=== PATIENT | female | born 1930 | race Caucasian/White ===

== ENCOUNTER 2018-11-23 17:47 | Inpatient (IN) ==
--- OUTSIDE RECORDS SUMMARY | 2018-11-23 17:49 | External Medical Summary | Continuity of Care Document ---
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) Hyperlipidemia (272.4) (E78.5) Hypertensive heart disease (402.90) (I11.9) Pulmonary congestion and hypostasis (514) (J81.1) Carotid artery stenosis (433.10) (I65.29) Chronic kidney disease, stage III (moderate) (585.3) (N18.3) Hypoxia (799.02) (R09.02) Shortness of breath (786.05) (R06.02) Dependence on supplemental oxygen (V46.2) (Z99.81) 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 RINSE MOUTH AFTER USE. ETTA Peralta Start: 27-Oct-2013 Quantity: 1 10.2 GM Inhaler Refills: 0 Furosemide 20 MG Oral Tablet; TAKE 1 TABLET DAILY NEEDED. Start: 24-Dec-2013 Quantity: 30 Refills: 5 Amoxicillin 500 MG Oral Capsule; TAKE 4 CAPSULES 1 HOUR PRIOR TO DENTAL APPOINTMENT. Start: 17-Aug-2015 Refills: 0 Lantus 100 UNIT/ML Subcutaneous Solution; 10 units at HS &10 Units am Refills: 0 Aspirin 81 MG TABS; TAKE 1 TABLET DAILY. Quantity: 30 Refills: 5 ProAir HFA 108 (90 Base) MCG/ACT Inhalat ion Aerosol Solution; INHALE 2 PUFFS EVERY 4 HOURS NEEDED 8.5 GM Inhaler Quantity: 1 Refills: 5 Atorvastatin Calcium 40 MG Oral Tablet; TAKE 1 TABLET DAILY. Refills: 0 amLODIPine Besylate 10 MG Oral Tablet; TAKE 1 TABLET DAILY. Quantity: 30 Refills: 5 Atenolol 50 MG Oral Tablet; TAKE 1 TABLET DAILY DIRECTED. Quantity: 30 Refills: 5 Januvia 25 MG Oral Tablet; TAKE 1 TABLET DAILY. Refills: 0 Glimepiride 4 MG Oral Tablet; TAKE 2 TABLETS DAILY. Refills: 0 OneTouch Ultra Blue STRP; USE 1 STRIP DAILY. Refills: 0 Levothyroxine Sodium 112 MCG Oral Tablet; TAKE 1 TABLET ALICIA Y. Quantity: 30 Refills: 5 Levalbuterol HCl - 0.63 MG/3ML Inhalatio n Nebulization Solution; USE 1 AMPULE IN NEBULIZER EVERY 6 TO 8 HOURS NEEDED ETTA Peralta Start: 019 Quantity: 4 24 x 3 ML Plas Cont Refills: 5 Procedures History of Cholecystectomy Status: Compl eted History of Hip Surgery Status: Completed History of Neuroplasty Decompression Median Nerve At Carpal Status: Completed Tunnel History of Breast Surgery Mastectomy Sta tus: Completed History of Tonsillectomy Status: Complet ed Immunizations Fluzone High-Dose Intramuscular Suspension On: 29-Apr-2014 1 4:09 Lot #: [id number], [employer]UR Fluzone High-Dose Intramuscular Suspension On: 24-Apr-2018 1 6:28 Lot #: [id number], SANOFI PA[employer]UR Family History Mother Family history of Heart Disease (V17.49) Status: Active Father Family history of Heart Disease (V17.49) Status: Active Unknown Family Member Family history of Heart Disease (V17.49) Status: Active Comments: Family History Social History - Smoking Status Former smoker Plan of Treatment Planned Observations Planned Goals not documented Results No Known Results Results not documented Encounters Appointment; Echo/Stress, Echo/Stress 14-May-2018 14:30 Encounter Diagnosis: Problem not documented Appointment; Edwardo Peralta PA-C 24-Apr-2018 15:00 Encounter Diagnosis: Problem not documented Appointment; Edwardo Peratla PA-C 27-Aug-2017 15:00 Encounter Diagnosis: Problem not documented Appointment; Pulmonary, Funct Testing 23-Apr-2017 9:00 Encounter Diagnosis: Problem not documented Appointment; Edwardo Peralta PA-C 25-Dec-2016 15:30 Encounter Diagnosis: Problem not documented
[2018-11-23] MEDS ORDERED: SODIUM CHLORIDE 0.9% 1000ML 1,000 ML IV SCH (18:15)
[2018-11-23] MEDS ORDERED: LEVALBUTEROL 1.25MG/0.5ML NEB NEB STA (18:22)
[2018-11-23 18:35] LABS: Basophils # (auto) 0.01 K/uL (0-0.2); Basophils % (auto) 0.1 %; Hemoglobin 7.2 g/dL (12.0-16.0); Immature Granulocytes # (auto) 0.11 K/uL (0.00-0.02); Immature Granulocytes % (auto) 1.1 %; Lymphocytes % (auto) 6.8 %; Mean Corpuscular Hgb Conc 34.3 g/dL (32-36); Mean Corpuscular Volume 89.7 fL (80-100); Mean Platelet Volume 11.2 fL (7.4-10.4); Monocytes # (auto) 0.49 K/uL (0.11-0.59); Monocytes % (auto) 4.7 %; Neutrophils # (auto) 9.02 K/uL (1.4-6.5); Neutrophils % (auto) 87.3 %; Platelet Count 245 K/uL (130-400); RDW Coefficient of Variation 12.9 % (11.5-14.5); RDW Standard Deviation 42.1 fL (36.4-46.3); Red Blood Count 2.34 M/uL (4.2-5.4); White Blood Count 10.33 K/uL (4.8-10.8)
[2018-11-23 18:58] LABS: RBC Morphology Unremarkable
[2018-11-23 19:10] LABS: Albumin Globulin Ratio 0.8 (0.9-2); Albumin Level 2.4 gm/dl (3.4-5.0); BUN Creatinine Ratio 68.1 (10-20); Bilirubin,Total 0.4 mg/dl (0.2-1); Calcium 7.9 mg/dl (8.5-10.1); Creatinine Clr Calc Pharmacy 27.7 ml/min; Est GFR (African American) 42.5; Est GFR (Non-African American) 36.7; Magnesium 2.3 mg/dl (1.8-2.4); Potassium 4.9 mmol/L (3.5-5.1); Total Protein 5.4 gm/dl (6.4-8.2); Troponin I 0.023 ng/ml (0-0.045)
[2018-11-23] MEDS ORDERED: SODIUM CHLORIDE 0.9% 250 ML IV PRN ×3 (19:25→23:06)
[2018-11-23] MEDS ORDERED: FAMOTIDINE 20MG/5ML IV PUSH IV STA (19:25)
[2018-11-23] MEDS ORDERED: NovoLIN-R INSULIN PER UNIT CHARGE IV STA (19:27)
--- NOTE | 2018-11-23 19:38 | XRay Report ---
XR chest 1V portable HISTORY: weakness COMPARISON: Chest and right rib series 10/15/2018. FINDINGS: The heart remains mildly enlarged. No pneumothorax. Surgical clips within the bilateral axi lla are again noted. No pleural effusions. Mild elevation of the right hemidiaphragm, unchanged. Calc ified plaque within the thoracic aorta. Chronic interstitial thickening persists. No new focal lung c onsolidations. IMPRESSION: No change in the chronic interstitial thickening and mild cardiomegaly. No new focal lung consolidati ons identified. Electronically signed by: Rosendo Ceja M.D. 11/23/2018 7:36 PM
--- NOTE | 2018-11-23 20:06 | Emergency Department Note ---
Entered by Jessica Abdalla acting as a scribe for ED Provider Note CHIEF COMPLAINT: Hyperglycemia HISTORY OF PRESENT ILLNESS: The patient is a 88 year old female who presents to the Emergency Room with complaints of hyperglycemia. Per daughter, the patient's sugar was over 500. The patient states that she has a loss of appetite and dizziness. The patient denies any chest pain, nausea, vomiting, syncope, or leg pain. Per daughter, the patient has bilateral leg swelling at baseline. Per daughter, the patient wears 3.5 L of oxygen at all times and states that the patient does breathing treatments every morning. Per daughter, the patient has a history of breast cancer and received radiation and states that the radiation affected the patient's lungs. Per daughter, the patient is currently taking Amoxicillin and Prednisone. Per daughter, the patient lives at [facility]. Pt denies LOC, headache, fevers, chills, diaphoresis, visual changes, neck pain, chest pain, , nausea, vomiting, abdominal pain, back pain, melena, hematochezia, urinary symptoms, numbness, weakness, lymphadenopathy, rash, or other complaint s. REVIEW OF SYSTEMS: See HPI for pertinent positives and negatives. A total of ten systems were reviewed and were otherwise negative. PMHx/PSHx: Hypothyroidism Diabetes Hyperlipidemia Hypertension Dementia COPD On supplemental oxygen by nasal cannula SOCIAL HISTORY: Patient lives at [facility]. PHYSICAL EXAM: GENERAL: Awake, alert, well-appearing, in no distress HENT: Normocephalic, atraumatic. Oropharynx unremarkable. EYES: PERRL. Pale conjunctiva. Sclera non-icteric. NECK: Inspection normal. Non-tender. Supple. No nuchal rigidity. FROM. No masses. RESPIRATORY: Clear to auscultation. Wheezes bilaterally, rhonci on right side. No rales. Increased respiratory effort. CARDIAC: Normal rate. Normal rhythm. No murmurs. No rubs. Extremities warm and well perfused. Pulses equal. No JVD. GI: Soft, non-distended. No tenderness to palpation. No rebound or guarding. No masses. RECTAL: Deferred. MUSCULOSKELETAL: Atraumatic. Chest examination reveals no tenderness. The back is symmetrical on inspection without obvious abnormality. There is no CVA tenderness to palpation. No joint edema. LOWER EXTREMITIES: Calves are equal size bilaterally and non-tender. +1 left leg edema, slightly worse than right side. No discoloration. NEURO: Normal sensorium. No sensory or motor deficits noted. SKIN: No rash or jaundice noted. EMERGENCY DEPARTMENT COURSE: 1816: Past medical records reviewed. The patient was evaluated in room C7, and a complete history and physical examination were performed. 1943: I checked on the patient and updated her and her family on the patient's results. The patient is stable. 1957: I discussed the patient's case with Dr. Karo Dozier Hospitalist who will evaluate the patient for further hospitalization and admission. 2042: The patient's family consented to the patient receiving a blood transfusion. MEDICAL DECISION MAKING: Triage Nursing notes reviewed and agree them. Additional history obtained from the family. The patient's history was concerning for shortness of breath. Differential diagnosis: Etiologies such as pneumonia, COPD, reactive airway disease, CHF, cardiac ischemia, pulmonary embolism, pneumothorax, musculoskeletal, infections, gastrointestinal, anemia, as well as others were entertained. Physical examination: As above. The patient was mildly pale. ER treatment provided: Xopenex nebulizer treatment Supplemental oxygen On reassessment the patient felt better. IV Pepcid Type and cross 2 units PRBCs Diagnostic interpretation by me: The electrocardiogram was negative for ischemic change. The labs revealed an unremarkable white blood cell count. The patient's hemoglobin was significantly lower than prior. The patient had a black stool while in the ER and this was Hemoccult positive. Imaging studies: Chest x-ray chronic changes noted. No pneumonia. The patient has wheezing and increased work of breathing. She has a significant and further management and work-up in the hospital will be necessary. Consultation: A consultation was placed with the hospitalist. The case was discussed and diagnostics were reviewed. The patient was evaluated in the ER for further treatment. IMPRESSION: Shortness of breath Wheezing Anemia Upper GI bleed PLAN: Admitted CRITICAL CARE: I have personally spent greater than 30 minutes of critical care time in the direct management of this patient. This includes bedside care, interpretation of diagnostic studies, and testing, discussion with consultants, patient, and family members, and other required patient management activities. These minutes are in excess of all separately billable procedures. The scribe's documentation has been prepared under my direction and personally reviewed by me in its entirety. I confirm that the note above accurately reflects all work, treatment, procedures, and medical decision making performed by me. Impression & Plan Shortness of breath, Upper GI bleed, Anemia, Wheezing Past Med/Surg History Social History Preferred Language: Irish Communication Ability: Effective Sweetbread Trimmer Required: No Beliefs That Will Affect Care: None Current Living Situation: Personal Care Facility Current Living Situation Comment: [facility] Other Information That Helps Us Care for You: Yes (Cannot lay flat) Feels Safe at Home: Yes Safety Concerns: Feels Safe At This Time Smoking Status: Former smoker Tobacco Type: cigarettes Do You Dip or Chew Tobacco: No Second Hand Exposure: No Tobacco Cessation Education Requested by Patient: No Hx Alcohol Use: No Hx Substance Use: No Results & Data Vital Signs Vital Signs - 24 hr 11/23/18 17:55 11/23/18 18:04 11/23/18 18:29 Temperature 36.6 C Temperature Source Oral Sepsis Recent Fever Within 48 Hours No Sepsis Action Taken by Nursing No Action Required Pulse Rate 79 Pulse Rate [Right Finger] 74 Pulse Rhythm Respiratory Rate 79 H 16 Respiratory Effort / Characteristics Non-Labored Spontaneous Blood Pressure 118/72 Blood Pressure Mean 87 Blood Pressure Position Sitting Pulse Oximetry 96 100 100 Oxygen Delivery Method Room Air Nasal Cannula Nasal Cannula Oxygen Flow Rate 2 3.5 11/23/18 20:30 11/23/18 20:46 11/23/18 21:01 Temperature Temperature Source Sepsis Recent Fever Within 48 Hours Sepsis Action Taken by Nursing Pulse Rate 75 80 Pulse Rate [Right Finger] 78 Pulse Rhythm Respiratory Rate 29 H 39 H 26 H Respiratory Effort / Characteristics Non-Labored Blood Pressure 131/44 L 138/41 L Blood Pressure Mean 73 73 Blood Pressure Position Pulse Oximetry 98 94 96 Oxygen Delivery Method Nasal Cannula Oxygen Flow Rate 2 11/23/18 21:02 11/23/18 21:16 11/23/18 21:25 Temperature 36.7 C Temperature Source Oral Sepsis Recent Fever Within 48 Hours Sepsis Action Taken by Nursing Pulse Rate 71 73 73 Pulse Rate [Right Finger] Pulse Rhythm Regular Respiratory Rate 37 H 28 H 18 Respiratory Effort / Characteristics Blood Pressure 149/44 H 124/44 L 124/44 L Blood Pressure Mean 79 70 70 Blood Pressure Position Pulse Oximetry 100 98 99 Oxygen Delivery Method Oxygen Flow Rate 2 11/23/18 21:31 11/23/18 21:41 11/23/18 21:46 Temperature 37.2 C Temperature Source Axillary Sepsis Recent Fever Within 48 Hours Sepsis Action Taken by Nursing Pulse Rate 80 76 75 Pulse Rate [Right Finger] Pulse Rhythm Respiratory Rate 28 H 24 34 H Respiratory Effort / Characteristics Blood Pressure 115/47 L 135/49 L 135/49 L Blood Pressure Mean 69 77 77 Blood Pressure Position Lying Pulse Oximetry 97 96 96 Oxygen Delivery Method Oxygen Flow Rate 2 11/23/18 22:01 11/23/18 22:15 Temperature Temperature Source Sepsis Recent Fever Within 48 Hours Sepsis Action Taken by Nursing Pulse Rate 80 74 Pulse Rate [Right Finger] Pulse Rhythm Respiratory Rate 41 H 30 H Respiratory Effort / Characteristics Blood Pressure 129/78 142/54 H Blood Pressure Mean 95 83 Blood Pressure Position Pulse Oximetry 97 96 Oxygen Delivery Method Oxygen Flow Rate Home Medications Current Medication List: was personally reviewed by me Laboratory Data Attestation: I reviewed the patient's lab results. Result diagrams: 11/23/18 18:25 11/23/18 18:25 Lab Results 11/23/18 11/23/18 11/23/18 Range/Units 18:25 18:25 18:29 WBC 10.33 (4.8-10.8) K/uL RBC 2.34 L (4.2-5.4) M/uL Hgb 7.2 L (12.0-16.0) g/dL Hct 21.0 L (37-47) % MCV 89.7 (80-100) fL MCH 30.8 (25-34) pg MCHC 34.3 (32-36) g/dL RDW Std Deviation 42.1 (36.4-46.3) fL RDW Coeff of Van 12.9 (11.5-14.5) % Plt Count 245 (130-400) K/uL MPV 11.2 H (7.4-10.4) fL Immature Gran % (Auto) 1.1 % Neut % (Auto) 87.3 % Lymph % (Auto) 6.8 % [facility] % (Auto) 4.7 % Eos % (Auto) 0.0 % Baso % (Auto) 0.1 % Immature Gran # (Auto) 0.11 H (0.00-0.02) K/uL Neut # (Auto) 9.02 H (1.4-6.5) K/uL Lymph # (Auto) 0.70 L (1.2-3.4) K/uL [facility] # (Auto) 0.49 (0.11-0.59) K/uL Eos # (Auto) 0.00 (0-0.5) K/uL Baso # (Auto) 0.01 (0-0.2) K/uL RBC Morphology Unremarkable Sodium 134 L (136-145) mmol/L Potassium 4.9 (3.5-5.1) mmol/L Chloride 97 L (98-107) mmol/L Carbon Dioxide 31 (21-32) mmol/L Anion Gap 7.0 (3-11) BUN 88 H (7-18) mg/dl Creatinine 1.29 H (0.6-1.2) mg/dl Est Cr Clr Drug Dosing 27.7 ml/min Est GFR ( Amer) 42.5 Est GFR (Non-Af Amer) 36.7 BUN/Creatinine Ratio 68.1 H (10-20) Glucose 400 H* (70-99) mg/dl POC Glucose (70-99) POC Lactic Acid Clint 1.63 (0.90-1.70) mmol/L Calcium 7.9 L (8.5-10.1) mg/dl Magnesium 2.3 (1.8-2.4) mg/dl Total Bilirubin 0.4 (0.2-1) mg/dl AST 14 L (15-37) U/L ALT 15 (12-78) U/L Alkaline Phosphatase 62 (45-117) U/L Troponin I 0.023 (0-0.045) ng/ml Total Protein 5.4 L (6.4-8.2) gm/dl Albumin 2.4 L (3.4-5.0) gm/dl Globulin 3.0 (2.5-4.0) gm/dl Albumin/Globulin Ratio 0.8 L (0.9-2) Beta-Hydroxybutyric Acd 2.49 (0.2-2.81) mg/dl TSH 0.567 (0.300-4.500) uIu/ml Blood Type Antibody Screen Crossmatch 11/23/18 11/23/18 11/23/18 Range/Units 19:07 19:12 19:41 WBC (4.8-10.8) K/uL RBC (4.2-5.4) M/uL Hgb (12.0-16.0) g/dL Hct (37-47) % MCV (80-100) fL MCH (25-34) pg MCHC (32-36) g/dL RDW Std Deviation (36.4-46.3) fL RDW Coeff of Van (11.5-14.5) % Plt Count (130-400) K/uL MPV (7.4-10.4) fL Immature Gran % (Auto) % Neut % (Auto) % Lymph % (Auto) % [facility] % (Auto) % Eos % (Auto) % Baso % (Auto) % Immature Gran # (Auto) (0.00-0.02) K/uL Neut # (Auto) (1.4-6.5) K/uL Lymph # (Auto) (1.2-3.4) K/uL [facility] # (Auto) (0.11-0.59) K/uL Eos # (Auto) (0-0.5) K/uL Baso # (Auto) (0-0.2) K/uL RBC Morphology Sodium (136-145) mmol/L Potassium (3.5-5.1) mmol/L Chloride (98-107) mmol/L Carbon Dioxide (21-32) mmol/L Anion Gap (3-11) BUN (7-18) mg/dl Creatinine (0.6-1.2) mg/dl Est Cr Clr Drug Dosing ml/min Est GFR ( Amer) Est GFR (Non-Af Amer) BUN/Creatinine Ratio (10-20) Glucose (70-99) mg/dl POC Glucose 462 H* 450 H* (70-99) POC Lactic Acid Clint (0.90-1.70) mmol/L Calcium (8.5-10.1) mg/dl Magnesium (1.8-2.4) mg/dl Total Bilirubin (0.2-1) mg/dl AST (15-37) U/L ALT (12-78) U/L Alkaline Phosphatase (45-117) U/L Troponin I (0-0.045) ng/ml Total Protein (6.4-8.2) gm/dl Albumin (3.4-5.0) gm/dl Globulin (2.5-4.0) gm/dl Albumin/Globulin Ratio (0.9-2) Beta-Hydroxybutyric Acd (0.2-2.81) mg/dl TSH (0.300-4.500) uIu/ml Blood Type A Negative Antibody Screen NEGATIVE Crossmatch See Detail Administered Medications Sodium Chloride (Nss 1000ml) 1,000 mls @ 80 mls/hr IV .[id number] KAIT Stop: 12/23/18 23:05 Last Admin: 11/23/18 23:45 Dose: 80 mls/hr Documented by: [id number] Discontinued Medications Famotidine (Pepcid 20mg Iv Push) 20 mg IV ONE STA Stop: 11/23/18 19:26 Last Admin: 11/23/18 20:12 Dose: 20 mg Documented by: [id number] Sodium Chloride (Nss 1000ml) 1,000 mls @ 125 mls/hr IV .Q8H KAIT Stop: 11/24/18 02:14 Last Admin: 11/23/18 20:12 Dose: 125 mls/hr Documented by: [id number] Sodium Chloride (Nss 1000ml) 500 mls @ 999 mls/hr IV .Q31M ONE Stop: 11/23/18 21:07 Last Infusion: 11/23/18 21:27 Dose: 0 mls/hr Documented by: [id number] Admin: 11/23/18 20:40 Dose: 999 mls/hr Documented by: [id number] Pantoprazole Sodium 80 mg/ (Dextrose) 120 mls @ 480 mls/hr IV ONE ONE Stop: 11/23/18 23:14 Last Admin: 11/23/18 23:44 Dose: 480 mls/hr Documented by: [id number] Insulin Human Regular (Novolin R U-100 Per Unit) 10 units IV NOW STA Stop: 11/23/18 19:28 Last Admin: 11/23/18 20:11 Dose: 10 units Documented by: [id number] Cosigned by: [id number] Levalbuterol HCl (Xopenex 1.25mg/0.5ml Neb) 1.25 mg NEB NOW STA Stop: 11/23/18 18:23 Last Admin: 11/23/18 18:29 Dose: 1.25 mg Documented by: [id number] Levalbuterol HCl (Xopenex 1.25mg/3ml Neb) 1.25 mg NEB NOW STA Stop: 11/23/18 20:38 Last Admin: 11/23/18 20:54 Dose: 1.25 mg Documented by: [id number] Imaging Data Radiologist's Impression: Radiology results as stated below per my review and the radiologist's interpretation: XR chest 1V portable HISTORY: weakness COMPARISON: Chest and right rib series 10/15/2018. FINDINGS: The heart remains mildly enlarged. No pneumothorax. Surgical clips within the bilateral axilla are again noted. No pleural effusions. Mild elevation of the right hemidiaphragm, unchanged. Calcified plaque within the thoracic aorta. Chronic interstitial thickening persists. No new focal lung consolidations. IMPRESSION: No change in the chronic interstitial thickening and mild cardiomegaly. No new focal lung consolidations identified. Electronically signed by: Rosendo Ceja M.D. 11/23/2018 7:36 PM ECG Data Attestation: I personally reviewed and interpreted this ECG as follows: Indication: SOB/dyspnea Rate (beats per minute): 71 Rhythm: normal sinus Findings: + nonspecific-ST abn and + Q waves (anterior); no PVC and no ST elevation Blood Pressure Blood Pressure Findings: Low blood pressure Blood Pressure Disposition: further management by hospitalist Discharge Plan Visit Data *Final* Discharge Date/Time: 11/23/18 22:48 Chief Complaint: Hyperglycemia Stated Complaint: HIGH BLOOD SUGAR, ALLERGIES ED Provider: Sal Wu Discharge Problem: Shortness of breath, Upper GI bleed, Anemia, Wheezing Patient Disposition: Admitted As Inpatient Discharge Instructions Interventions: ED Discharge Assessment Last Done: 11/23/18 22:48 Discharge Problem: Anemia Qualifiers: Anemia type: unspecified type Qualified Code(s): D64.9 - Anemia, unspecified The scribe's documentation has been prepared under my direction and personally reviewed by me in its entirety. I confirm that the note above accurately reflects all work, treatment, procedures, and medical decision making performed by me.
[2018-11-23] MEDS ORDERED: SODIUM CHLORIDE 0.9% 1000ML 500 ML IV ONE (20:37)
[2018-11-23] MEDS ORDERED: LEVALBUTEROL HCL 1.25 MG/3 ML NEB NEB STA (20:37)
[2018-11-23] MEDS ORDERED: PANTOprazole 80 MG in DEXTROSE 5% 100 ML IV ONE (23:00)
[2018-11-23] MEDS ORDERED: ALBUTEROL HFA 8 GM INHALER INH PRN (23:06)
[2018-11-23] MEDS ORDERED: FUROSEMIDE 20 MG TAB PO PRN (23:06)
[2018-11-23] MEDS ORDERED: ACETAMINOPHEN 500 MG TAB PO PRN (23:06)
[2018-11-23] MEDS ORDERED: MODERATE STRESS LEVEL ONE (23:06)
[2018-11-23] MEDS ORDERED: DOCUSATE SODIUM 100 MG CAP PO PRN (23:06)
[2018-11-23] MEDS ORDERED: INSULIN PROTOCOL GOAL RANGE ONE (23:06)
[2018-11-23] MEDS ORDERED: ONDANSETRON INJ 2 MG/ML 2 ML VIAL IV PRN (23:06)
[2018-11-23] MEDS ORDERED: INSULIN REGULAR 250 UNITS in SODIUM CHLORIDE 0.9% 247.5 ML IV SCH (23:06)
[2018-11-23] MEDS ORDERED: DC ALL PREVIOUSLY ORDERED DIABETES MEDS ONE (23:06)
[2018-11-23] MEDS ORDERED: NITROGLYCERIN SL 0.4 MG/TAB TAB SL PRN (23:06)
[2018-11-23] MEDS ORDERED: PHARMACY GLYCEMIC MGMT CONSULT PRN (23:18)
[2018-11-23] MEDS ORDERED: DEXTROSE 50% 50 ML SYRINGE IV PRN (23:45)
[2018-11-23] MEDS ORDERED: GLUCOSE 10 TABS/TUBE PO PRN (23:45)
[2018-11-23] MEDS ORDERED: GLUCAGON FOR INJ 1 MG VIAL SQ PRN (23:45)
[2018-11-23] MEDS ORDERED: GLUCOSE 40% GEL 15 GM TUBE PO PRN (23:45)
[2018-11-23] MEDS ORDERED: CARBOHYDRATES FOR HYPOGLYCEMIA PO PRN (23:45)
[2018-11-23] MEDS ORDERED: INSULIN GLARGINE SOLOSTAR 100 UNITS/ML 3 ML PEN SC SCH (23:45)
[2018-11-23] MEDS: SODIUM CHLORIDE 0.9% 1000ML 1,000 ML IV SCH (23:45)
[2018-11-24] MEDS: PANTOprazole 40 MG in DEXTROSE 5% 100 ML IV SCH ×6 (00:16→22:59)
--- NOTE | 2018-11-24 01:16 | History and Physical Report ---
DATE OF ADMISSION: 11/23/2018 CHIEF COMPLAINT: Shortness of breath and hyperglycemia. HISTORY OF PRESENT ILLNESS: This is an 88-year-old female with past medical history significant for type 2 diabetes, hyperlipidemia, chronic kidney disease stage III, carotid stenosis, hypertension, glaucoma, history of breast cancer. The patient is a DNR status currently at [facility], was brought in by her son and [id number] because they were told that her sugars were running high and she was in shortness of breath. The patient recently was started on Augmentin and prednisone because of her upper respiratory infection. The patient is chronically short of breath. She breaths fast chronically on 3 liters oxygen all the time. Seems to be secondary to COPD, history of smoking in the past and interstitial lung disease possibly from radiation treatment for breast caner.. As per the family, walking few steps make her short of breath that is usual for her. Patient doesn't ambulate much, she needs assistance for ambulation. [facility] is in a [facility]. No recent fever or chills. The patient currently is resting comfortably and saturating fine, but her hemoglobin was found to be 7.2. Her sugars were running in 400s and Hemoccult was positive in the ER. The patient denies any obvious bleeding. No abdominal pain. No hematuria, no burning micturition, no black or blood in the stools. No chest pain. Currently, denies any shortness of breath, no cough, no headaches, no blurred vision, no sore throat, no difficulty swallowing. Appetite is not great. Usually sleeps only in a chair, cannot sleep flat. Denies any abdominal pain. Currently, resting comfortable and hemodynamically stable. ALLERGIES: RUSSEL INHIBITORS, LATEX, MORPHINE, PAST MEDICAL HISTORY: As mentioned above. PAST SURGICAL HISTORY: Laparoscopic cholecystectomy, ligation of oviduct, radical removal of the breast radiation treatment, tonsillectomy and adenoidectomy. MEDICATIONS: Augmentin 875/125 one tablet p.o. b.i.d., prednisone taper, Colace 50 mg p.o. t.i.d. p.r.n., glimepiride 4 mg p.o. daily, atenolol 50 mg p.o. daily, amlodipine 10 mg p.o. daily, levothyroxine 112 mcg daily,januvia 25 p.o. daily, Symbicort 160/4.5 mcg 2 puffs inhalation b.i.d., Lasix 20 mg p.o. daily p.r.n., Lantus 10 units p.o. b.i.d., losartan 100 mg p.o. daily, atorvastatin 40 mg p.o. daily, DuoNeb 4 times a day, albuterol 2 puffs 4 times a day as p.r.n., aspirin 81 mg p.o. daily. FAMILY HISTORY: Significant for father had heart disorder. Mother had heart disorder. SOCIAL HISTORY: . Currently resides at [facility]. Quit smoking in 1973, smoked 1 pack a day for 30 years. No alcohol use, no drug use. REVIEW OF SYMPTOMS: As per HPI. Rest of review of symptoms negative. PHYSICAL EXAMINATION: GENERAL: The patient is old and frail, not in acute distress. VITAL SIGNS: Temperature 36.5, pulse 69, respiratory rate 25, blood pressure 140/54, oxygen 98% on 2 liters. HEENT: No pallor, no icterus. Pupils equal, round, and reactive to light. NECK: No JVD, no neck masses, no carotid bruits. CARDIOVASCULAR: S1, S2 heard, regular rate and rhythm, no murmur, no gallop. RESPIRATORY SYSTEM: Normal AP diameter. No accessory muscle use. No wheezing, no crackles. ABDOMEN: Soft, bowel sounds present. Nontender. No distention. CENTRAL NERVOUS SYSTEM: Alert and awake, oriented x1. Remote memory intact. Having difficulty with recent memories. EXTREMITIES: No edema, no erythema. LABS: WBC 10.3, hemoglobin 7.2, hematocrit 31, platelets 245. Sodium 134, potassium 4.9, chloride 97, bicarbonate 31, BUN 88, creatinine 1.2, serum glucose 400, calcium 7.9lactic acid 1.6, magnesium 2.3, total bilirubin 0.4, AST 14, ALT 15, alkaline phosphatase 62. Troponin-I 0.023, beta hydroxybutyrate acid 2.4. TSH 0.5. Chest x-ray, no change in her chronic interstitial thickening and mild cardiomegaly, no new focal lung consolidation identified. EKG: Normal sinus rhythm with rate of 71, no acute ST is seen. ASSESSMENT AND PLAN: This is an 88-year-old female, [facility] resident, presents with shortness of breath and hyperglycemia. 1. Shortness of breath most recently started on prednisone and Augmentin for upper respiratory infection. We are holding prednisone for hyperglycemia. Continue Augmentin. Shortness of breath mostly due to anemia, hemoglobin 7.2. We will transfuse two units PRBCs and monitor in the med/surg tele. 2. Anemia, probably acute blood loss anemia. Recent hemoglobin was 12.2, presently hemoglobin is 7.2, possibly from prednisone. Will hold prednisone and aspirin. We are going to transfuse 2 units of PRBC, H and H q. 6 hours, Protonix drip. Consult GI for further recommendation. Family does not want any invasive procedure unless it is absolutely necessary because of her respiratory status. We will monitor on the tele floor. No gross bleeding seen. Hemoccult positive in the ER. 3. Hyperglycemia, history of diabetes, on Lantus and glimepiride at home which will be held. Hyperglycemia most likely secondary to prednisone use. We will hold the prednisone and start on Lantus and ISS and close monitor. Pharmacy consulted.. Follow hemoglobin A1c levels. 4. Chronic respiratory failure, possibly from radiation Tx and interstitial lung disease. On oxygen 28/01.She was given radiation for her breast cancer, currently stable. We will monitor. 5. History of hypertension. Continue home medication of Cozaar, atenolol, amlodipine. We will monitor the blood pressure. 6. Hypothyroidism. Continue Synthroid. 7. History of breast cancer status post radical mastectomy and radiation treatment. 8. Chronic kidney disease stage III, baseline creatinine 1.1, currently creatinine is 1.2. We will follow the labs. 9. Deep venous thrombosis prophylaxis. SCDs. DISPOSITION: Closely monitor in tele floor. Code status DNR as per discussion with the family. PT and OT prior to discharge. Social Service to help with discharge planning. The patient is a [facility] resident. [facility]
[2018-11-24] MEDS ORDERED: INSULIN ASPART 100 UNITS/ML 3 ML PEN SC SCH ×3 (04:00→23:45)
[2018-11-24 05:53] LABS: Hematocrit (blood only) 29.4 % (37-47); Hemoglobin 10.5 g/dL (12.0-16.0)
[2018-11-24 05:55] LABS: Basophils # (auto) 0.02 K/uL (0-0.2); Basophils % (auto) 0.1 %; Hematocrit (blood only) 29.4 % (37-47); Hemoglobin 10.4 g/dL (12.0-16.0); Immature Granulocytes # (auto) 0.34 K/uL (0.00-0.02); Immature Granulocytes % (auto) 2.4 %; Lymphocytes # (auto) 1.52 K/uL (1.2-3.4); Lymphocytes % (auto) 10.7 %; Mean Corpuscular Hgb Conc 35.4 g/dL (32-36); Mean Corpuscular Volume 85.2 fL (80-100); Mean Platelet Volume 11.5 fL (7.4-10.4); Monocytes # (auto) 1.86 K/uL (0.11-0.59); Monocytes % (auto) 13.1 %; Neutrophils % (auto) 73.7 %; Platelet Count 219 K/uL (130-400); RDW Coefficient of Variation 14.4 % (11.5-14.5); RDW Standard Deviation 45.3 fL (36.4-46.3); Red Blood Count 3.45 M/uL (4.2-5.4); White Blood Count 14.24 K/uL (4.8-10.8)
[2018-11-24] MEDS: LEVOTHYROXINE SODIUM 112 MCG TABLET PO SCH (06:06)
[2018-11-24 06:27] LABS: Creatinine Clr Calc Pharmacy 34.3 ml/min; Est GFR (African American) 55.2; Est GFR (Non-African American) 47.6; Magnesium 2.2 mg/dl (1.8-2.4); Potassium 3.9 mmol/L (3.5-5.1)
[2018-11-24 07:51] LABS: Estimated Average Glucose 123 mg/dl
[2018-11-24 09:00] LABS: Appearance Urine Clear (Clear); Bacteria Urine Automated Negative (Negative); Bilirubin Urine Negative (Negative); Color Urine Yellow; Glucose Urine UA Trace (Negative); Ketones Urine Negative (Negative); Leukocyte Esterase Urine Negative (Negative); Nitrite Urine Negative (Negative); Protein Urine 2+ (Negative); Specific Gravity Urine 1.016 (1.000-1.030); Urobilinogen Urine Negative (Negative)
[2018-11-24] MEDS ORDERED: INSULIN GLARGINE SOLOSTAR 100 UNITS/ML 3 ML PEN SC SCH ×3 (09:00→21:00)
[2018-11-24] MEDS ORDERED: ASPIRIN 81 MG ECTAB PO SCH (09:00)
[2018-11-24] MEDS: AMOXICILLIN/CLAVULANATE 500 MG TAB PO SCH ×2 (09:09→17:08)
[2018-11-24] MEDS: AMLODIPINE BESYLATE 5 MG TAB PO SCH (09:09)
[2018-11-24] MEDS: BUDESONIDE/FORMOTEROL FUMARATE 160/4.5 60 PUFFS/INHALER INH SCH ×2 (09:10→20:39)
[2018-11-24] MEDS: ATENOLOL 50 MG TABLET PO SCH (09:10)
[2018-11-24] MEDS: LOSARTAN POTASSIUM 50 MG TAB PO SCH (09:10)
[2018-11-24] MEDS: INSULIN ASPART 100 UNITS/ML 3 ML PEN SC SCH ×4 (10:22→20:40)
--- NOTE | 2018-11-24 11:16 | Gastrointestinal Consultation ---
Date of Consultation November 24, 2018 Assessment & Plan (1) Shortness of breath: 88 year old female with history of dementia and other comorbids below who presented w/ symptomatic anemia, HGB 7.2 She has responded will to two units RBC w/ HGB 10.4 and has remained hemodynamically stable w/ good VS. DDX discussed, all questions answered. Both pt and son would like to continue with conservative measures and defer endoscopic evaluation at this time. They note if her condition were to change (black/bloody stools/emesis) that they would reconsider at that time GI to sign off Would reocmmend IV PPI bolus and drip x 48 hours Can then be transitioned to PO PPI BID x 1 month Can then be transitioned to PO PPI once daily Trend H&H Monitor and document GI output Transfuse PRN GI to sign off. Thank you for allowing us to participate in the care of this patient. Please call with any acute changes, questions or concerns. Please see addendum below with additional recommendation from my supervising physician. Supervising Physician Co-Signing Physician Notes I performed a history and physical examination of the patient, including specifically on physical exam - soft, nontender abdomen. I have discussed the patient's management with Dionne. Please refer to the nurse practitioner's note for the documented findings and plan of care. 88 female patient found with anemia with elevated BUN, suspected UGI bleed. Son and patient refused endoscopy at this time and wants conservative management, no overt bleeding now. H/H stable. Plan: PPI. Recall GI if patient or son agrees for EGD. History of Present Illness Reason for Consultation: anemia Requesting Physician: Kary Attending Physician: Miguel Angel Preston MD History of Present Illness 88 year old female with history of dementia, T2DM, dyslipidemia, CKD-3, carotid stenosis, HTN [facility] who presented through the ED for evaluation of SOB and elevated blood glucose level - GI asked to evaluate for anemia. Pt was seen and evaluated, chart reviewed. Son at bedside who aids in history and helps make decision. She is a poor historian. Notes she feels well. No abd pain. No nausea, vomiting. Denies black/bloody stools. Does have constipation. Moves bowels 1-2 times a week. No fever, chills, CP. Less SOB since RBC HGB 7.2 --> 2 units --> 10.4 BUN 88 --> 63 Allergies Allergy/AdvReac Type Severity Reaction Status Date / Time latex Allergy Intermediate Unknown Verified 11/23/18 18:57 codeine Allergy Mild Unknown Verified 11/23/18 18:57 RUSSEL Inhibitors Allergy Unknown SEVERE Verified 11/23/18 18:57 DROP IN SODUIM,CONFUSION, PERSONALITY CHANGE Home Medications Home Medications Medication Instructions Recorded Confirmed Type albuterol sulfate [Ventolin HFA] 2 puff INHALATION QID PRN 07/12/18 11/23/18 History amlodipine [Norvasc] 10 mg PO QAM 07/12/18 11/23/18 History aspirin 81 mg PO QAM 07/12/18 11/23/18 History atenolol [Tenormin] 50 mg PO QAM 07/12/18 11/23/18 History atorvastatin [Lipitor] 40 mg PO PM 07/12/18 11/23/18 History budesonide-formoterol [Symbicort] 2 puff INHALATION BID 07/12/18 11/23/18 History furosemide 20 mg PO DAILY PRN 07/12/18 11/23/18 History glimepiride 4 mg PO QAM 07/12/18 11/23/18 History insulin glargine [Lantus Solostar 10 unit SUBCUT AMHS 07/12/18 11/23/18 History U-100 Insulin] levothyroxine 112 mcg PO QAM 07/12/18 11/23/18 History losartan [Cozaar] 100 mg PO DAILY 07/12/18 11/23/18 History sitagliptin [Januvia] 25 mg PO QAM 07/12/18 11/23/18 History acetaminophen 500 mg PO BID 11/23/18 11/23/18 History acetaminophen 500 mg PO DAILY PRN 11/23/18 11/23/18 History amoxicillin-pot clavulanate 1 tab PO Q12H 11/23/18 11/23/18 History docusate sodium 100 mg PO DAILY PRN 11/23/18 11/23/18 History prednisone See Rx Instructions .ROUTE .COMPLEX 11/23/18 11/23/18 History Patient History Social History Preferred Language: Lithuanian Communication Ability: Effective Consultant Teacher Required: No Beliefs That Will Affect Care: None Current Living Situation: Personal Care Facility Current Living Situation Comment: [facility] Other Information That Helps Us Care for You: Yes (Cannot lay flat) Feels Safe at Home: Yes Safety Concerns: Feels Safe At This Time Smoking Status: Former smoker Tobacco Type: cigarettes Do You Dip or Chew Tobacco: No Second Hand Exposure: No Tobacco Cessation Education Requested by Patient: No Hx Alcohol Use: No Hx Substance Use: No Review of Systems Constitutional: + fatigue; no fever and no chills Respiratory: no cough, no chest congestion, no dyspnea and no dyspnea on exertion Cardiovascular: no chest pain, no chest pain at rest, no dyspnea and no dyspnea on exertion Gastrointestinal: no abdominal pain, no early satiety, no vomiting, no hematemesis, no pain with swallowing, no change in stools, no blood in stools and no melena Physical Exam Constitutional: WD/WN, vitals as above Respiratory: normal respiratory effort, lungs clear to auscultation Cardiovascular: Rate/Rhythm: regular rate and regular rhythm Heart Sounds: no click, no gallop and no cardiac rub Gastrointestinal (Abdomen): normal bowel sounds, soft, nontender, no hepatosplenomegaly Skin: no rashes, warm and dry Results & Data Vital Signs (Past 12 Hours) Vital Signs Temp Pulse Pulse Resp BP BP Pulse Ox 11/24/18 08:00 79 11/24/18 07:07 36.8 C 91 H 19 179/53 H 94 11/24/18 03:01 37 C 64 20 162/59 H 97 11/24/18 02:11 36.6 C 70 22 166/63 H 97 11/24/18 01:28 37 C 76 20 162/59 H 98 11/24/18 00:43 36.7 C 80 18 149/64 H 93 11/24/18 00:41 36.9 C 75 22 153/61 H 96 11/24/18 00:26 36.6 C 71 18 145/57 H 96 11/24/18 00:20 36.6 C 71 18 145/57 H 96 11/24/18 00:00 74 11/23/18 23:18 36.7 C 71 22 161/51 H 92 11/23/18 23:10 36.7 C 71 22 161/51 H 92
[2018-11-24 11:33] LABS: Hematocrit (blood only) 29.5 % (37-47); Hemoglobin 10.5 g/dL (12.0-16.0)
--- NOTE | 2018-11-24 11:35 | Hospitalist Progress Note ---
Date of Service November 24, 2018 Assessment & Plan (1) Shortness of breath: Likely secondary to symptomatic anemia Complicated by history of COPD Has been feeling a lot better following blood transfusion (2) Upper GI bleed: Presented with hemoglobin of 7.2 Hemoglobin noted to be 11.1 on 12 July Stool is positive for blood without nina hematochezia Likely secondary to use of aspirin and complicated by prednisone Received 2 units of blood transfusion with hemoglobin went up to more than 10 Has been on PPI Appreciate GI input and recommendation Later H&H Present on Admission?: Yes (3) Hypothyroidism: Continue current replacement (4) Diabetes: Blood sugar was noted to be high Likely secondary to use of recent prednisone Has been on sliding scale is been covered (5) HTN (hypertension): Blood pressure remains in the upper side of normal (6) Dementia: History of dementia with acute delirium at times (7) COPD (chronic obstructive pulmonary disease): Has minimal wheezing Otherwise stable Continue current management CKD stage III Kidney function has been improving Subjective 11/24 Patient was seen and examined in telemetry unit in presence of the son She is a 88-year-old female with significant past medical history of type 2 diabetes, hyperlipidemia, CKD stage III, hypertension, glaucoma and history of breast cancer was admitted from [facility] with increasing shortness of breath and noted to have high blood sugar She has noted to have low hemoglobin less than 8 with guaiac positive stool on admission She denies any complaints this morning following 2 units of blood transfusion Review of Systems Review of Systems: All systems reviewed and are unremarkable except as noted below Respiratory: + dyspnea (My dyspnea at rest) and + wheezing (Minimal bilateral) Neurologic: Pleasantly confused with generalized weakness Physical Exam Physical Exam: Mild respiratory distress at rest Constitutional: + ill appearing Eyes: PERRL, conjunctivae normal, anicteric sclerae ENMT: external ear and nose normal, oropharynx normal Neck: trachea midline, no thyromegaly Respiratory: + respiratory distress (Mild) Auscultation: + diminished lung sounds and + wheezes (Bilateral) Cardiovascular: Rate/Rhythm: regular rate and regular rhythm Gastrointestinal (Abdomen): Inspection/Auscultation: abdomen normal to inspection Percussion/Palpation: abdomen soft; abdomen nontender Musculoskeletal: No acute arthritis Neurologic: Pleasantly confused Lymphatic: no cervical or axillary lymphadenopathy Results & Data Vital Signs (Past 12 Hours) Vital Signs Temp Pulse Pulse Resp BP BP Pulse Ox 11/24/18 08:00 79 11/24/18 07:07 36.8 C 91 H 19 179/53 H 94 11/24/18 03:01 37 C 64 20 162/59 H 97 11/24/18 02:11 36.6 C 70 22 166/63 H 97 11/24/18 01:28 37 C 76 20 162/59 H 98 11/24/18 00:43 36.7 C 80 18 149/64 H 93 11/24/18 00:41 36.9 C 75 22 153/61 H 96 11/24/18 00:26 36.6 C 71 18 145/57 H 96 11/24/18 00:20 36.6 C 71 18 145/57 H 96 11/24/18 00:00 74
[2018-11-24] MEDS: SODIUM CHLORIDE 0.9% 1000ML 1,000 ML IV SCH (13:09)
--- NOTE | 2018-11-24 13:09 | Pharmacy Report ---
Glycemic Control Consultation - Date of Service November 24, 2018 - Scope Scope: Glycemic Pharmacist consulted by Dr Duckworth on 11/24/18 for glycemic control and to write orders per [facility] inpatient glycemic control protocol - Objective Weight: 63 kg Accuchecks BSG (last 24hrs): 11/23/18 11/23/18 11/23/18 18:25 19:07 19:12 Glucose 400 H* POC Glucose 462 H* 450 H* 11/23/18 11/23/18 11/24/18 21:23 23:31 03:59 Glucose POC Glucose 329 H* 299 H 277 H 11/24/18 11/24/18 11/24/18 05:17 07:15 11:48 Glucose 232 H POC Glucose 233 H 155 H Laboratory Data (last 24hrs): 11/23/18 11/24/18 18:25 05:17 Potassium 4.9 3.9 D Carbon Dioxide 31 31 Anion Gap 7.0 6.0 Creatinine 1.29 H 1.04 Est Cr Clr Drug Dosing 27.7 34.3 Beta-Hydroxybutyric Acd 2.49 HbA1c: 5.9 % (4.5-5.6) H 11/24/18 05:17 - Recent Pertinent Medications Outpatient Anti-diabetic Regimen: * Lantus 10 units BID and amaryl 4 mg PO qAM The patient is currently receiving: * Basal insulin: Lantus 13 units every 12 hours * Correctional Insulin: Novolog Correction per scale ACHS Goal Range: Low 140 mg/dL - High 180 mg/dL Correction Factor: 20 mg/dL/unit * Prandial insulin: Per carb ratio of 1 unit per 8 grams CHO consumed * Oral Agents: Risk Factors for Insulin Resistance: * Steroids: prednisone taper prior to admission * Infection: Augmentin for steroid taper * Diet: NPO then diet ordered for lunch - Assessment & Plan Assessment & Plan: ASSESSMENT: * Patient admitted last night with 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 Patient's blood sugars initially > 500 mg/L. Insulin IV 10 units bolus given and patient started on lantus 13 units x 1 (0.2 units/kg) and weight- based stress of 3 Novolog dosing. * Ideally, would like to tackle hyperglycemia secondary to steroid use with Novolog. Will continue home dose of Lantus 10 units SQ x 1 then a scale for this evening. Novolog loosened slightly since steroid effects should wear off quickly. * * Pt is maintained on oral antidiabetic agents as an outpatient * Oral agents are not recommended for inpatient use d/t drug interactions, changing PO intake, and difficulty titrating for acute hyper/hypoglycemia. ADA recommends re-initiating outpatient oral agents 1-2 days prior to discharge if/when appropriate if they were held on admission. * Will hold oral agents for admission and utilize SQ basal bolus insulin regimen which is the recommended regimen for inpatient glycemic control. PLAN FOR INPATIENT GLYCEMIC CONTROL: * Holding outpatient oral diabetes medications * Basal insulin * Lantus 10 units SQ x 1 then 0 -10 units SQ BID * 0 units if blood sugar under 140 mg/dL * 5 units if blood sugar 140-180 mg/dL * 10 units if blood sugar greater than 180 mg/dL * Bolus insulin * NovoLog per scale ACHS or Q6hrs while NPO * Goal Range: Low 120 mg/dL - High 160 mg/dL * Correction Factor: 30 mg/dL/unit * Nutritional / Prandial insulin per carb ratio of 1 unit per 8 grams CHO consumed * Please note that the plan above was derived based on current level of insulin resistance and hospital stress. These recommendations are appropriate for inpatient admission only. Plan of care upon discharge will need to be reassessed to avoid potential outpatient hypo/hyperglycemia. Thank you.
[2018-11-24] MEDS: ACETAMINOPHEN 325 MG TAB PO PRN (16:15)
[2018-11-24 17:15] LABS: Hematocrit (blood only) 29.6 % (37-47); Hemoglobin 10.4 g/dL (12.0-16.0)
[2018-11-24] MEDS: ATORVASTATIN 40 MG TAB PO SCH (20:39)
[2018-11-24 23:06] LABS: Hematocrit (blood only) 27.3 % (37-47); Hemoglobin 9.8 g/dL (12.0-16.0)
[2018-11-25] MEDS: PANTOprazole 40 MG in DEXTROSE 5% 100 ML IV SCH ×4 (04:24→18:50)
[2018-11-25] MEDS: LEVOTHYROXINE SODIUM 112 MCG TABLET PO SCH (05:46)
[2018-11-25] MEDS: INSULIN ASPART 100 UNITS/ML 3 ML PEN SC SCH ×4 (07:50→20:24)
[2018-11-25] MEDS: AMOXICILLIN/CLAVULANATE 500 MG TAB PO SCH ×2 (07:58→17:08)
[2018-11-25] MEDS: ATENOLOL 50 MG TABLET PO SCH (08:00)
[2018-11-25] MEDS: AMLODIPINE BESYLATE 5 MG TAB PO SCH (08:00)
[2018-11-25] MEDS: LOSARTAN POTASSIUM 50 MG TAB PO SCH (08:00)
[2018-11-25] MEDS: BUDESONIDE/FORMOTEROL FUMARATE 160/4.5 60 PUFFS/INHALER INH SCH ×2 (08:01→20:23)
[2018-11-25] MEDS: INSULIN GLARGINE SOLOSTAR 100 UNITS/ML 3 ML PEN SC SCH ×2 (08:10→20:24)
[2018-11-25] MEDS ORDERED: INSULIN GLARGINE SOLOSTAR 100 UNITS/ML 3 ML PEN SC SCH (09:00)
[2018-11-25] MEDS ORDERED: FUROSEMIDE 40 MG/4 ML VIAL IV ONE (10:34)
[2018-11-25] MEDS ORDERED: FUROSEMIDE 20 MG in SYRINGE 0 ML IV ONE (10:45)
--- NOTE | 2018-11-25 14:18 | Pharmacy Report ---
Glycemic Control Progress Note - Date of Service November 25, 2018 - Scope Glycemic Pharmacist consulted for glycemic control to write orders per [facility] inpatient glycemic control protocol. - Objective Accuchecks BSG(last 24 hours):: 11/24/18 11/24/18 11/24/18 16:02 20:11 20:37 POC Glucose 137 H 274 H 286 H 11/25/18 11/25/18 07:46 11:15 POC Glucose 80 142 H HbA1c:: 5.9 % (4.5-5.6) H 11/24/18 05:17 - Recent Pertinent Medications The patient is currently receiving: * Basal insulin: Lantus 10 units every 12 hours * Correctional Insulin: Novolog Correction per scale ACHS Goal Range: Low 140 mg/dL - High 180 mg/dL Correction Factor: 30 mg/dL/unit * Prandial insulin: Per carb ratio of 1 unit per 8 grams CHO consumed * Oral Agents: - Outpatient Anti-Diabetic Meds Lantus 10 units BID amaryl 4 mg daily Januvia 25 mg daily - Assessment & Plan ASSESSMENT: * See progress note from 11/25/18 for more background info, in short: * Pt receiving SQ basal bolus insulin regimen for hyperglycemia secondary to baseline DM (outpatient regimen on hold); 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 This is in slightly below goal range for patient based on inpatient targets and co-morbidities. Therefore Basal insulin will be reduced by 20% approximately. Scheduled 7 units for this morning and then ongoing scale of 7 or 10 units BID. Lowered goal range to 120-160 mg/dL. * Post-prandial BSGs did trend upwards yesterday. Tightened slightly this morning; however patient has not received any insulin today so unable to assess effects. * Total daily dose = 25-30 units. PLAN FOR INPATIENT GLYCEMIC CONTROL: * Decreasing Lantus to 7 units x 1 then 7-10 units SQ BID * 7 units if blood sugar under 140 mg/dL * 10 units if blood sugar 140 mg/dL or greater * TIGHTENING correction factor to 25 mg/dl/unit * TIGHTENING carb ratio to 1 unit per 7 grams CHO consumed * LOWERING goal range to Low 120 mg/dL - High 160 mg/dL RECOMMENDATIONS FOR DISCHARGE: * Patient's HbA1C indicates excellent control HOWEVER patient has anemia so may not be 100% truthful. Recommend following blood sugars to establish true control. * When patient is on prednisone again recommend the following regimen to prevent future hyperglycemia: * for prednisone 40 mg - give NPH 24 units * for prednisone 30 mg - give NPH 18 units * for prednisone 20 mg - give NPH 12 units * for prednisone 10 mg - give NPH 6 units * Please note that the plan above was derived based on current level of insulin resistance and hospital stress. These recommendations are appropriate for inpatient admission only. Plan of care upon discharge will need to be reassessed to avoid potential outpatient hypo/hyperglycemia. Thank you.
--- NOTE | 2018-11-25 15:50 | Hospitalist Progress Note ---
Date of Service November 25, 2018 Assessment & Plan (1) Shortness of breath: Likely secondary to symptomatic anemia Complicated by history of COPD Has been feeling a lot better following blood transfusion More short of breath today We will give Lasix 20 mg IV x1 (2) Upper GI bleed: Presented with hemoglobin of 7.2 Hemoglobin noted to be 11.1 on 12 July Stool is positive for blood without nina hematochezia Likely secondary to use of aspirin and complicated by prednisone Received 2 units of blood transfusion with hemoglobin went up to more than 10 Has been on PPI Appreciate GI input and recommendation Hemoglobin remains stable at 9.8 following blood transfusion No bowel movement and no melena Continue IV Protonix today and start oral from tomorrow Advance diet as tolerated Likely discharge tomorrow (3) Hypothyroidism: Continue current replacement (4) Diabetes: Blood sugar was noted to be high Likely secondary to use of recent prednisone Has been on sliding scale is been covered (5) HTN (hypertension): Blood pressure remains in the upper side of normal (6) Dementia: History of dementia with acute delirium at times No acute delirium (7) COPD (chronic obstructive pulmonary disease): Has minimal wheezing Otherwise stable Continue current management Complicated by chronic interstitial lung disease CKD stage III Kidney function has been improving Subjective 11/24 Patient was seen and examined in telemetry unit in presence of the son She is a 88-year-old female with significant past medical history of type 2 diabetes, hyperlipidemia, CKD stage III, hypertension, glaucoma and history of breast cancer was admitted from [facility] with increasing shortness of breath and noted to have high blood sugar She has noted to have low hemoglobin less than 8 with guaiac positive stool on admission She denies any complaints this morning following 2 units of blood transfusion 11/25 The patient is seen and examined in telemetry unit She has been complaining some shortness of breath at rest Denies any significant pain Bowel has not moved yet Review of Systems Respiratory: + dyspnea (My dyspnea at rest) and + wheezing (Minimal bilateral) Physical Exam Physical Exam: Minimal distress secondary to shortness of breath at rest Constitutional: + ill appearing Eyes: PERRL, conjunctivae normal, anicteric sclerae ENMT: external ear and nose normal, oropharynx normal Neck: trachea midline, no thyromegaly Respiratory: + respiratory distress (Mild) Auscultation: + diminished lung sounds, + crackles (Bilaterally lower lung odom) and + wheezes (Bilateral) Cardiovascular: Rate/Rhythm: regular rate and regular rhythm Gastrointestinal (Abdomen): Inspection/Auscultation: abdomen normal to inspection Percussion/Palpation: abdomen soft; abdomen nontender Neurologic: moves all extremities (Generally weak) Pleasantly confused Psychiatric: Orientation: alert Affect: + anxious affect Lymphatic: no cervical or axillary lymphadenopathy Results & Data Vital Signs (Past 12 Hours) Vital Signs Temp Pulse Pulse Pulse Resp BP Pulse Ox 11/25/18 14:54 36.4 C L 71 18 166/61 H 96 11/25/18 11:12 37 C 70 22 126/55 L 96 11/25/18 10:48 95 11/25/18 08:00 60 11/25/18 07:50 36.7 C 70 18 168/64 H 94 11/25/18 04:00 36.6 C 75 168/61 H 97 Laboratory Results Short CBC 11/24/18 11/24/18 Range/Units 16:51 22:53 Hgb 10.4 L 9.8 L (12.0-16.0) g/dL Hct 29.6 L 27.3 L (37-47) % Medications Administered Current Inpatient Medications Acetaminophen (Tylenol) 650 mg PO Q4H PRN PRN Reason: Pain or Fever Stop: 12/23/18 23:05 Last Admin: 11/24/18 16:15 Dose: 650 mg Documented by: Albuterol (Ventolin Hfa) 2 puffs INH QID PRN PRN Reason: Shortness Of Breath Stop: 12/23/18 23:05 Amlodipine Besylate (Norvasc) 10 mg PO [facility] Stop: 12/24/18 08:59 Last Admin: 11/25/18 08:00 Dose: 10 mg Documented by: Amoxicillin/Clavulanate Potassium (Augmentin 500mg) 1 tab PO BIDM [facility] Stop: 12/01/18 07:59 Last Admin: 11/25/18 07:58 Dose: 1 tab Documented by: [facility]in) [facility] Stop: 12/24/18 08:59 Last Admin: 11/25/18 08:00 Dose: 50 mg Documented by: Atorvastatin Calcium (Lipitor) 40 mg PO PM [facility] Stop: 12/24/18 20:59 Last Admin: 11/24/18 20:39 Dose: 40 mg Documented by: Budesonide/Formoterol Fumarate (Symbicort 160mcg/4.5mcg) 2 puffs INH BID [facility] Stop: 12/24/18 08:59 Last Admin: 11/25/18 08:01 Dose: 2 puffs Documented by: Dextrose (Dextrose 50%) 25 - 50 ml IV UD PRN; Protocol PRN Reason: Hypoglycemia Protocol Stop: 12/23/18 23:44 Docusate Sodium (Colace) 100 mg PO DAILY PRN PRN Reason: Constipation Stop: 12/23/18 23:05 Furosemide (Lasix) 20 mg PO DAILY PRN PRN Reason: Leg Edema and/or Weight Gain Stop: 12/23/18 23:05 Last Admin: 11/24/18 07:39 Dose: 20 mg Documented by: Glucagon (Glucagen) 1 mg SQ UD PRN; Protocol PRN Reason: Hypoglycemia Protocol Stop: 12/23/18 23:44 Glucose (Glucose 40%) 15 - 30 gm PO UD PRN; Protocol PRN Reason: Hypoglycemia Protocol Stop: 12/23/18 23:44 Glucose (Dex4 Glucose) 4 - 8 tabs PO UD PRN; Protocol PRN Reason: Hypoglycemia Protocol Stop: 12/23/18 23:44 Pantoprazole Sodium 40 mg/ (Dextrose) 100 mls @ 20 mls/hr IV Q5H [facility] Stop: 11/26/18 11:29 Last Admin: 11/25/18 13:43 Dose: 20 mls/hr Documented by: Sodium Chloride (Nss) 250 mls @ 15 mls/hr IV .[id number] PRN PRN Reason: For Transfusion Stop: 12/23/18 23:05 Insulin Aspart (Novolog Flexpen) 0 units SC ACHS [facility] Stop: 12/24/18 09:47 Last Admin: 11/25/18 12:04 Dose: Not Given Documented by: Insulin Glargine (Lantus Solostar Pen) 7 units SC BID [facility]; Protocol Stop: 12/25/18 08:59 Last Admin: 11/25/18 08:10 Dose: Not Given Documented by: Levothyroxine Sodium (Synthroid) 112 mcg PO DAILYBB [facility] Stop: 12/24/18 06:29 Last Admin: 11/25/18 05:46 Dose: 112 mcg Documented by: Losartan Potassium (Cozaar) 100 mg PO DAILY [facility] Stop: 12/24/18 08:59 Last Admin: 11/25/18 08:00 Dose: 100 mg Documented by: Miscellaneous (Carbohydrates For Hypoglycemia) 15 - 30 gm PO UD PRN PRN Reason: Hypoglycemia Treatment Stop: 12/23/18 23:44 Miscellaneous Information (Consult Glycemic Management Pharmacy) 1 ea N/A DAILY PRN PRN Reason: Consult Stop: 12/23/18 23:17 Nitroglycerin (Nitrostat) 0.4 mg SL UD PRN PRN Reason: Chest Pain Stop: 12/23/18 23:05 Ondansetron HCl (Zofran) 4 mg IV Q6H PRN PRN Reason: Nausea Stop: 12/23/18 23:05 Pantoprazole Sodium (Protonix) 40 mg PO BID [facility] Stop: 12/26/18 20:59
[2018-11-25] MEDS: ATORVASTATIN 40 MG TAB PO SCH (20:25)
[2018-11-26] MEDS: PANTOprazole 40 MG in DEXTROSE 5% 100 ML IV SCH ×3 (00:17→10:36)
[2018-11-26] MEDS: LEVOTHYROXINE SODIUM 112 MCG TABLET PO SCH (05:45)
[2018-11-26] MEDS: ATENOLOL 50 MG TABLET PO SCH (07:16)
[2018-11-26] MEDS: AMLODIPINE BESYLATE 5 MG TAB PO SCH (07:16)
[2018-11-26] MEDS: LOSARTAN POTASSIUM 50 MG TAB PO SCH (07:16)
[2018-11-26 07:17] LABS: Basophils # (auto) 0.02 K/uL (0-0.2); Basophils % (auto) 0.1 %; Eosinophils # (auto) 0.42 K/uL (0-0.5); Eosinophils % (auto) 2.8 %; Hematocrit (blood only) 31.3 % (37-47); Hemoglobin 10.4 g/dL (12.0-16.0); Lymphocytes # (auto) 1.48 K/uL (1.2-3.4); Lymphocytes % (auto) 9.7 %; Mean Corpuscular Hgb Conc 33.2 g/dL (32-36); Mean Corpuscular Volume 89.2 fL (80-100); Mean Platelet Volume 11.2 fL (7.4-10.4); Monocytes # (auto) 1.34 K/uL (0.11-0.59); Monocytes % (auto) 8.8 %; Neutrophils # (auto) 11.68 K/uL (1.4-6.5); Neutrophils % (auto) 76.6 %; Nucleated RBC # (auto) 0.03 K/uL (0-0); Nucleated RBC % (auto) 0.2 %; Platelet Count 293 K/uL (130-400); Red Blood Count 3.51 M/uL (4.2-5.4); White Blood Count 15.24 K/uL (4.8-10.8)
[2018-11-26] MEDS: BUDESONIDE/FORMOTEROL FUMARATE 160/4.5 60 PUFFS/INHALER INH SCH ×2 (07:17→20:54)
[2018-11-26] MEDS: AMOXICILLIN/CLAVULANATE 500 MG TAB PO SCH ×2 (07:17→17:35)
[2018-11-26 08:01] LABS: BUN Creatinine Ratio 18.1 (10-20); Calcium 7.8 mg/dl (8.5-10.1); Creatinine Clr Calc Pharmacy 44.5 ml/min; Est GFR (African American) 75.8; Est GFR (Non-African American) 65.4; Magnesium 1.8 mg/dl (1.8-2.4); Phosphorus 2.7 mg/dl (2.5-4.9); Potassium 3.5 mmol/L (3.5-5.1)
[2018-11-26] MEDS: INSULIN GLARGINE SOLOSTAR 100 UNITS/ML 3 ML PEN SQ SCH ×2 (08:05→20:53)
[2018-11-26] MEDS: INSULIN ASPART 100 UNITS/ML 3 ML PEN SC SCH ×4 (08:05→20:50)
[2018-11-26] MEDS ORDERED: FUROSEMIDE 20 MG in SYRINGE 0 ML IV ONE (08:45)
--- NOTE | 2018-11-26 13:26 | Hospitalist Progress Note ---
Date of Service November 26, 2018 Assessment & Plan (1) Shortness of breath: Possible related to symptomatic anemia Complicated by history of COPD CXR showed no change in the chronic interstitial thickening and mild cardiomegaly. Will give lasix 20mg IV today Continue neb treatment Continue monitor closely (2) Upper GI bleed: Presented with hemoglobin of 7.2 Hemoglobin noted to be 11.1 on 12 July Stool is positive for blood without nina hematochezia Likely secondary to use of aspirin and complicated by prednisone Received 2 units of PRBC during hospital course Hgb 10.4 today GI on board recommended conservative management IV PPI drip changed to oral PPI after 48 hours Continue PO PPI BID x 1 month Can then be transitioned to PO PPI once daily No bowel movement and no melena Advance diet as tolerated Continue monitor CBC (3) Hypothyroidism: Continue current replacement (4) Diabetes: Blood sugar was noted to be high Likely secondary to use of recent prednisone Pharmacy on board for glycemic managment Monitor BS (5) HTN (hypertension): Blood pressure remains in the upper side of normal Continue monitor BP (6) Dementia: History of dementia with acute delirium at times No acute delirium (7) COPD (chronic obstructive pulmonary disease): Has minimal wheezing Continue current management, neb treatment CKD stage III Creatinine stable Will monitor BMP while getting IV lasix DVT px o SCDs CODE status DNR/DNI Subjective Pt was seen and examined Lying in bed with no distress Pt said that breathing is not as bad She said that she feels weak Denies any chest pain, palpitation, dizziness and fever Physical Exam Physical Exam: General- No acute distress Head- atraumatic Eyes- PERRL, EOMI, ENT- oropharynx clear Neck- supple, no JVD Lungs- +crackle, +diminished BS Heart- regular rhythm; no murmur Abdomen- normal bowel sounds, soft, nontender Extremities- no calf tenderness Neuro- alert, oriented,PERRL, EOMI; no facial palsy; no dysarthria Skin- warm & dry Results & Data Vital Signs (Past 12 Hours) Vital Signs Temp Pulse Resp BP Pulse Ox 11/26/18 11:49 36.4 C L 73 20 150/69 H 96 11/26/18 07:59 36.5 C 73 16 143/95 H 96 11/26/18 03:40 36.8 C 71 19 152/58 H 96
--- NOTE | 2018-11-26 14:00 | Pharmacy Report ---
Glycemic Control Progress Note - Date of Service November 26, 2018 - Scope Glycemic Pharmacist consulted for glycemic control to write orders per [facility] inpatient glycemic control protocol. - Objective Accuchecks BSG(last 24 hours):: 11/25/18 11/25/18 11/26/18 16:07 20:05 06:46 Glucose 109 H POC Glucose 194 H 240 H 11/26/18 11/26/18 07:25 11:21 Glucose POC Glucose 139 H 202 H HbA1c:: 5.9 % (4.5-5.6) H 11/24/18 05:17 - Recent Pertinent Medications The patient is currently receiving: * Basal insulin: Lantus 7 units every 12 hours * Correctional Insulin: Novolog Correction per scale ACHS Goal Range: Low 120 mg/dL - High 160 mg/dL Correction Factor: 25 mg/dL/unit * Prandial insulin: Per carb ratio of 1 unit per 7 grams CHO consumed - Outpatient Anti-Diabetic Meds Lantus 10 units SQ BID plus Amaryl 4 mg po qAM - Assessment & Plan ASSESSMENT: * See progress note from 11/24/18 for more background info, in short: * Pt receiving SQ basal bolus insulin regimen for hyperglycemia secondary to baseline DM (outpatient regimen on hold),stress/infection (previously on prednisone and currently on Augmentin). * Patient is currently receiving an average of 25 units of insulin per day * 17 units of basal insulin * 8 units of prandial/correctional insulin * BSGs ranging 80 - 240 mg/dl over the past 24hrs * Changes needed to insulin regimen: * AM Fasting BSG = 139 mg/dl. This is within goal range for patient based on inpatient targets and co-morbidities. Will continue regimen but increase incrementally since there was a 50 point jump in fasting from yesterday to today. * Post-prandial BSGs are trending upwards... tighten all parameters * Total daily dose = 30 units. PLAN FOR INPATIENT GLYCEMIC CONTROL: * INCREASING Lantus to 9 units SQ BID * TIGHTENING correction factor to 20 mg/dl/unit * TIGHTENING carb ratio to 1 unit per 6 grams CHO consumed * Continuing goal range of Low 120 mg/dL - High 160 mg/dL RECOMMENDATIONS FOR DISCHARGE: * see note from yesterday 11/25/18 * Please note that the plan above was derived based on current level of insulin resistance and hospital stress. These recommendations are appropriate for inpatient admission only. Plan of care upon discharge will need to be reassessed to avoid potential outpatient hypo/hyperglycemia. Thank you.
[2018-11-26] MEDS: ATORVASTATIN 40 MG TAB PO SCH (20:54)
[2018-11-26] MEDS: PANTOprazole 40 MG TAB PO SCH (20:55)
[2018-11-27] MEDS: ACETAMINOPHEN 325 MG TAB PO PRN (08:21)
[2018-11-27] MEDS: AMOXICILLIN/CLAVULANATE 500 MG TAB PO SCH ×2 (08:21→16:15)
[2018-11-27] MEDS: LOSARTAN POTASSIUM 50 MG TAB PO SCH (08:22)
[2018-11-27] MEDS: AMLODIPINE BESYLATE 5 MG TAB PO SCH (08:22)
[2018-11-27] MEDS: PANTOprazole 40 MG TAB PO SCH ×2 (08:22→20:58)
[2018-11-27] MEDS: LEVOTHYROXINE SODIUM 112 MCG TABLET PO SCH (08:22)
[2018-11-27] MEDS: BUDESONIDE/FORMOTEROL FUMARATE 160/4.5 60 PUFFS/INHALER INH SCH ×2 (08:22→20:57)
[2018-11-27] MEDS: ATENOLOL 50 MG TABLET PO SCH (08:22)
[2018-11-27] MEDS: INSULIN GLARGINE SOLOSTAR 100 UNITS/ML 3 ML PEN SQ SCH ×2 (08:22→20:59)
[2018-11-27] MEDS: INSULIN ASPART 100 UNITS/ML 3 ML PEN SC SCH ×3 (08:23→20:59)
[2018-11-27 10:35] LABS: BUN Creatinine Ratio 16.9 (10-20); Calcium 7.8 mg/dl (8.5-10.1); Creatinine Clr Calc Pharmacy 37.5 ml/min; Est GFR (African American) 62.3; Est GFR (Non-African American) 53.8; Potassium 3.5 mmol/L (3.5-5.1)
[2018-11-27 10:57] LABS: Hematocrit (blood only) 31.2 % (37-47); Hemoglobin 10.6 g/dL (12.0-16.0); Mean Corpuscular Volume 88.9 fL (80-100); Mean Platelet Volume 11.3 fL (7.4-10.4); Platelet Count 317 K/uL (130-400); RDW Coefficient of Variation 13.7 % (11.5-14.5); RDW Standard Deviation 43.8 fL (36.4-46.3); Red Blood Count 3.51 M/uL (4.2-5.4); White Blood Count 16.15 K/uL (4.8-10.8)
[2018-11-27] MEDS ORDERED: FUROSEMIDE 20 MG TAB PO ONE (11:35)
[2018-11-27] MEDS ORDERED: predniSONE 20 MG TAB PO ONE (11:35)
--- NOTE | 2018-11-27 12:42 | Hospitalist Progress Note ---
Date of Service November 27, 2018 Assessment & Plan (1) Shortness of breath: Possible related to symptomatic anemia Complicated by history of COPD CXR showed no change in the chronic interstitial thickening and mild cardiomegaly. Lasix 20mg oral given today Continue neb treatment Continue monitor closely (2) Upper GI bleed: Presented with hemoglobin of 7.2 Hemoglobin noted to be 11.1 on 12 July Stool is positive for blood without nina hematochezia Likely secondary to use of aspirin and complicated by prednisone Received 2 units of PRBC during hospital course Hgb 10.6 today GI on board recommended conservative management IV PPI drip changed to oral PPI yesterday Continue PO PPI BID x 1 month, then transition to PO PPI once daily No bowel movement and no melena Advance diet as tolerated Continue monitor CBC (3) Hypothyroidism: Continue current replacement (4) Diabetes: Blood sugar was noted to be high Likely secondary to use of recent prednisone Pharmacy on board for glycemic managment Monitor BS (5) HTN (hypertension): Blood pressure remains in the upper side of normal Continue monitor BP (6) Dementia: History of dementia with acute delirium at times No acute delirium (7) COPD (chronic obstructive pulmonary disease): Has minimal wheezing Continue current management, neb treatment CKD stage III Creatinine stable Continue monitor BMP DVT px o SCDs CODE status DNR/DNI Disposition Will discharge tomorrow Please notify family member before giving steroid Subjective Pt was seen and examined Lying in bed with no distress Pt said that she feels good I spoke to her daughter this morning and update provided Daughter would like to notify family member if pt needs steroid because she does not do well with steroid Nurse said that she walked with therapy in the hallway Denies any chest pain, palpitation and dizziness Physical Exam Physical Exam: General- No acute distress Head- atraumatic Eyes- PERRL, EOMI, ENT- oropharynx clear Neck- supple, no JVD Lungs- +coarse BS Heart- regular rhythm; no murmur Abdomen- normal bowel sounds, soft, nontender Extremities- no calf tenderness Neuro- alert, oriented,PERRL, EOMI; no facial palsy; no dysarthria Skin- warm & dry Results & Data Vital Signs (Past 12 Hours) Vital Signs Temp Pulse Resp BP Pulse Ox 11/27/18 11:38 37.3 C 70 22 135/64 93 11/27/18 07:36 36.6 C 73 22 170/61 H 93 11/27/18 03:27 36.7 C 76 22 151/63 H 96
[2018-11-27] MEDS: ATORVASTATIN 40 MG TAB PO SCH (20:58)
[2018-11-28] MEDS: LEVOTHYROXINE SODIUM 112 MCG TABLET PO SCH (05:52)
[2018-11-28 06:39] LABS: Hematocrit (blood only) 32.8 % (37-47); Hemoglobin 11.2 g/dL (12.0-16.0); Mean Corpuscular Hgb Conc 34.1 g/dL (32-36); Mean Corpuscular Volume 89.6 fL (80-100); Mean Platelet Volume 10.8 fL (7.4-10.4); Platelet Count 339 K/uL (130-400); RDW Coefficient of Variation 13.8 % (11.5-14.5); RDW Standard Deviation 43.9 fL (36.4-46.3); Red Blood Count 3.66 M/uL (4.2-5.4); White Blood Count 13.48 K/uL (4.8-10.8)
[2018-11-28] MEDS: LOSARTAN POTASSIUM 50 MG TAB PO SCH (08:34)
[2018-11-28] MEDS: ATENOLOL 50 MG TABLET PO SCH (08:34)
[2018-11-28] MEDS: AMLODIPINE BESYLATE 5 MG TAB PO SCH (08:34)
[2018-11-28] MEDS: PANTOprazole 40 MG TAB PO SCH (08:34)
[2018-11-28] MEDS: AMOXICILLIN/CLAVULANATE 500 MG TAB PO SCH (08:34)
[2018-11-28] MEDS: BUDESONIDE/FORMOTEROL FUMARATE 160/4.5 60 PUFFS/INHALER INH SCH (08:35)
[2018-11-28] MEDS: INSULIN ASPART 100 UNITS/ML 3 ML PEN SC SCH ×2 (08:40→13:42)
[2018-11-28] MEDS ORDERED: INSULIN GLARGINE SOLOSTAR 100 UNITS/ML 3 ML PEN SQ SCH (09:00)
[2018-11-28] MEDS ORDERED: guaiFENesin SUGAR FREE 100 MG/5 ML UDC PO SCH (11:15)
--- NOTE | 2018-11-28 14:13 | Pharmacy Report ---
Pharmacy Glycemic Short Note 2 - Date of Service November 28, 2018 - Glycemic Short BSG Results (Last 24 hours): 11/27/18 11/27/18 11/28/18 16:27 20:35 07:25 POC Glucose 110 H 115 H 70 11/28/18 11/28/18 11/28/18 11:23 11:24 11:43 POC Glucose 55 L* 47 L* 80 OUTPATIENT ANTIDIABETIC REGIMEN: * Lantus 10 units SQ BID plus Amaryl 4 mg po qAM ASSESSMENT: * Patient received a total of 20 units insulin yesterday * 18 units basal insulin * 2 units prandial insulin * BSG = 70 mg/dl at breakfast and 47 mg/dl at lunch. Decreased AM Lantus dose from 9 units to 7 units and loosened CF/CR to 30 and 10. * Will give Lantus per scale tonight in response to pt's hypoglycemia PLAN FOR INPATIENT GLYCEMIC CONTROL: * Hold outpatient oral diabetes medications * Basal insulin - decreased * Lantus 7 units QAM * Per following scale this evening: * if BSG less than 120 mg/dl, give 0 units * if BSG 120-160 mg/dl, give 5 units * if BSG above 160, give 7 units * Bolus insulin - loosened * NovoLog per scale ACHS or Q6hrs while NPO * Goal Range: Low 120 mg/dL - High 160 mg/dL * Correction Factor: 30 mg/dL/unit * Nutritional / Prandial insulin per carb ratio of 1 unit per 10 grams CHO consumed
--- NOTE | 2018-11-28 14:45 | Hospitalist Progress Note ---
Date of Service November 28, 2018 Assessment & Plan (1) Shortness of breath: Possible related to symptomatic anemia vs URI Complicated by history of COPD CXR showed no change in the chronic interstitial thickening and mild cardiomegaly. On lasix prn for weight gain greater than 3lbs Continue breathing treatment Completed course of Augmentin (was starting on 11/17) Clinically improves (2) Upper GI bleed: Presented with hemoglobin of 7.2 Hemoglobin noted to be 11.1 on 12 July Stool is positive for blood without nina hematochezia Likely secondary to use of aspirin and complicated by prednisone Received 2 units of PRBC during hospital course Hgb 11.2 today GI on board recommended conservative management IV PPI drip changed to oral PPI yesterday Continue PO PPI BID x 1 month, then transition to PO PPI once daily No bowel movement and no melena Advance diet as tolerated Monitor CBC (3) Hypothyroidism: Continue current replacement (4) Diabetes: Blood sugar was noted to be high Recent Hba1c 5.9 Likely secondary to use of recent prednisone Pharmacy on board for glycemic management BS low today Case discussed with pharmacy recommended to d/c glemiperide and januvia on discharge Continue Lantus 10unit BID Monitor BS closely (5) HTN (hypertension): Blood pressure remains in the upper side of normal Continue monitor BP (6) Dementia: History of dementia with acute delirium at times No acute delirium (7) Paroxysmal A-fib: Converted back to normal sinus rhythm last night Rate control with atenolol Not a good candidate for anticoagulant due to GI bleed Case discussed with son and daughter in law about risk and benefit while on aspirin Resume aspirin if hemoglobin is stable Will need to monitor for bleeding if while on aspirin (8) Hypoglycemia: BS was in the 40 today Pharmacy on board for glycemic management case discussed with pharmacy and recommended to d/c januvia and glimepiride on discharge Continue monitor BS (9) COPD (chronic obstructive pulmonary disease): Has minimal wheezing Continue current management, neb treatment CKD stage III Creatinine stable Continue monitor BMP DVT px o SCDs (GI bleed) CODE status DNR/DNI Disposition Discharge home today Follow up with PCP dr. Chamberlain on 12/04 @ 11:45 AM Subjective Pt was seen and examined Lying in bed with no distress Pt said that her breathing feels better Son and daughter in law at bedside and said that pt looks much better Her cough improves Son said that she does not do well with prednisone Son said that she develops tremor after taking Duoneb Denies any chest pain, palpitation, dizziness and SOB Physical Exam Physical Exam: General- No acute distress Head- atraumatic Eyes- PERRL, EOMI, ENT- oropharynx clear Neck- supple, no JVD Lungs- +coarse BS Heart- regular rhythm; no murmur Abdomen- normal bowel sounds, soft, nontender Extremities- no calf tenderness Neuro- alert, oriented,PERRL, EOMI; no facial palsy; no dysarthria Skin- warm & dry Results & Data Vital Signs (Past 12 Hours) Vital Signs Temp Pulse Resp BP BP Pulse Ox 11/28/18 11:22 36.6 C 59 L 18 127/67 100 11/28/18 07:56 36.7 C 54 L 18 115/65 97 11/28/18 03:05 36.6 C 51 L 18 116/62 100
[2018-11-28] MEDS ORDERED: LEVALBUTEROL HCL 0.63 MG/3 ML NEB NEB SCH (20:00)
[2018-11-28] MEDS ORDERED: INSULIN GLARGINE SOLOSTAR 100 UNITS/ML 3 ML PEN SC SCH (21:00)
--- NOTE | 2018-11-29 23:05 | Discharge Summary ---
Date of Service November 28, 2018 Admission HPI Per Admitting Provider CHIEF COMPLAINT: Shortness of breath and hyperglycemia. HISTORY OF PRESENT ILLNESS: This is an 88-year-old female with past medical history significant for type 2 diabetes, hyperlipidemia, chronic kidney disease stage III, carotid stenosis, hypertension, glaucoma, history of breast cancer. The patient is a DNR status currently at [facility], was brought in by her son and [id number] because they were told that her sugars were running high and she was in shortness of breath. The patient recently was started on Augmentin and prednisone because of her upper respiratory infection. The patient is chronically short of breath. She breaths fast chronically on 3 liters oxygen all the time. Seems to be secondary to COPD, history of smoking in the past and interstitial lung disease possibly from radiation treatment for breast caner.. As per the family, walking few steps make her short of breath that is usual for her. Patient doesn't ambulate much, she needs assistance for ambulation. She is in a [facility] for last 3-4 months. No recent fever or chills. The patient currently is resting comfortably and saturating fine, but her hemoglobin was found to be 7.2. Her sugars were running in 400s and Hemoccult was positive in the ER. The patient denies any obvious bleeding. No abdominal pain. No hematuria, no burning micturition, no black or blood in the stools. No chest pain. Currently, denies any shortness of breath, no cough, no headaches, no blurred vision, no sore throat, no difficulty swallowing. Appetite is not great. Usually sleeps only in a chair, cannot sleep flat. Denies any abdominal pain. Currently, resting comfortable and hemodynamically stable. Admission Exam Per Admitting Provider GENERAL: The patient is old and frail, not in acute distress. VITAL SIGNS: Temperature 36.5, pulse 69, respiratory rate 25, blood pressure 140/54, oxygen 98% on 2 liters. HEENT: No pallor, no icterus. Pupils equal, round, and reactive to light. NECK: No JVD, no neck masses, no carotid bruits. CARDIOVASCULAR: S1, S2 heard, regular rate and rhythm, no murmur, no gallop. RESPIRATORY SYSTEM: Normal AP diameter. No accessory muscle use. No wheezing, no crackles. ABDOMEN: Soft, bowel sounds present. Nontender. No distention. CENTRAL NERVOUS SYSTEM: Alert and awake, oriented x1. Remote memory intact. Having difficulty with recent memories. EXTREMITIES: No edema, no erythema. Principal Diagnosis SOB Anemia Upper GI bleed P. Afib Diabetes Hypoglycemia CKD stage 3 COPD HTN Discharge Exam General- No acute distress Head- atraumatic Eyes- PERRL, EOMI, ENT- oropharynx clear Neck- supple, no JVD Lungs- +coarse BS Heart- regular rhythm; no murmur Abdomen- normal bowel sounds, soft, nontender Extremities- no calf tenderness Neuro- alert, oriented,PERRL, EOMI; no facial palsy; no dysarthria Skin- warm & dry Discharge Data Allergies Allergy/AdvReac Type Severity Reaction Status Date / Time latex Allergy Intermediate Unknown Verified 11/23/18 18:57 codeine Allergy Mild Unknown Verified 11/23/18 18:57 RUSSEL Inhibitors Allergy Unknown SEVERE Verified 11/23/18 18:57 DROP IN SODUIM,CONFUSION, PERSONALITY CHANGE Consultations 11/23/18 19:52 ED Decision to Admit Stat 11/23/18 23:06 Consult Case Management - Discharge Planning Routine 11/24/18 08:00 Consult Gastroenterology Routine Hospital Course (1) Shortness of breath: Possible related to symptomatic anemia vs URI Complicated by history of COPD CXR showed no change in the chronic interstitial thickening and mild cardiomegaly. On lasix prn for weight gain greater than 3lbs Continue breathing treatment Completed course of Augmentin (was starting on 11/17) Clinically improves (2) Upper GI bleed: Presented with hemoglobin of 7.2 Hemoglobin noted to be 11.1 on 12 July Stool is positive for blood without nina hematochezia Likely secondary to use of aspirin and complicated by prednisone Received 2 units of PRBC during hospital course Hgb 11.2 today GI on board recommended conservative management IV PPI drip changed to oral PPI yesterday Continue PO PPI BID x 1 month, then transition to PO PPI once daily No bowel movement and no melena Advance diet as tolerated Monitor CBC (3) Hypothyroidism: Continue current replacement (4) Diabetes: Blood sugar was noted to be high Recent Hba1c 5.9 Likely secondary to use of recent prednisone Pharmacy on board for glycemic management BS low today Case discussed with pharmacy recommended to d/c glemiperide and januvia on discharge Continue Lantus 10unit BID Monitor BS closely (5) HTN (hypertension): Blood pressure remains in the upper side of normal Continue monitor BP (6) Dementia: History of dementia with acute delirium at times No acute delirium (7) Paroxysmal A-fib: Converted back to normal sinus rhythm last night Rate control with atenolol Not a good candidate for anticoagulant due to GI bleed Case discussed with son and daughter in law about risk and benefit while on aspirin Resume aspirin if hemoglobin is stable Will need to monitor for bleeding if while on aspirin (8) Hypoglycemia: BS was in the 40 today Pharmacy on board for glycemic management case discussed with pharmacy and recommended to d/c januvia and glimepiride on discharge Continue monitor BS (9) COPD (chronic obstructive pulmonary disease): Has minimal wheezing Continue current management, neb treatment CKD stage III Creatinine stable Continue monitor BMP DVT px o SCDs (GI bleed) CODE status DNR/DNI Disposition Discharge home today Follow up with PCP dr. Chamberlain on 12/04 @ 11:45 AM Total Time Total Time Spent Total Time Spent (In Minutes): 35 minutes Total Time Includes: Examination of the Patient, Discharge Planning, Medication Reconciliation, Communication With Other Providers and Other Discharge Plan Discharge Items Patient Disposition: Personal [facility] Reason For Visit: HYPERGLYCEMIA,SOB Discharge Diagnosis: SOB Anemia Upper GI bleed P. Afib Diabetes Hypoglycemia CKD stage 3 COPD HTN Discharge Goals: Decrease discomfort, Improve disease control, Improve function and Increase independence Activity: Resume your previous activity Activity Comment: As tolerated Non-emergency contact: Primary Care Provider Call non-emergency contact if: you have any medication questions and your temperature is above 101 Follow-up/Referrals: Francheska Chamberlain MD [Primary Care Provider] - Diet: Carb Consistent or DM2 and Heart Healthy Addtl Provider Instructions: Follow up appointment with your primary care provider Dr. Chamberlain on 12/04 @ 11:45 AM Continue physical and occupational therapy Fall precaution Resume aspirin 81 mg for tomorrow (Please stop it if you notice any dark stool or abnormal bleeding) Check CBC in 1 week to monitor hemoglobin Your PCP will discuss with you if you need to continue to be on aspirin after the repeat CBC Avoid any NSAIDs such as (Motrin, Aleve, Advil, Naproxen, Ibuprofen, ..) Monitor your blood sugar closely and bring your blood sugar log at your next appointment with your primary care provider Prescriptions: New guaifenesin 200 mg tablet 200 mg PO TID PRN (Reason: cough) 5 Days Qty: 15 RF: 0 levalbuterol HCl 0.63 mg/3 mL Solution For Nebulization 0.63 mg NEB BID Qty: 90 RF: 0 pantoprazole 40 mg Tablet,Delayed Release (Dr/Ec) 40 mg PO BID Qty: 60 RF: 1 Continued acetaminophen 500 mg Tablet 500 mg PO DAILY PRN (Reason: Fever Or Pain) RF: 0 acetaminophen 500 mg Tablet 500 mg PO BID RF: 0 docusate sodium 100 mg Capsule 100 mg PO DAILY PRN (Reason: Constipation) RF: 0 furosemide 20 mg Tablet 20 mg PO DAILY PRN (Reason: Leg Edema and/or Weight Gain) Qty: 0 RF: 0 atorvastatin [Lipitor] 40 mg Tablet 40 mg PO PM RF: 0 aspirin 81 mg Tablet,Delayed Release (Dr/Ec) 81 mg PO QAM RF: 0 amlodipine [Norvasc] 10 mg Tablet 10 mg PO QAM RF: 0 losartan [Cozaar] 100 mg Tablet 100 mg PO DAILY RF: 0 atenolol [Tenormin] 50 mg Tablet 50 mg PO QAM RF: 0 levothyroxine 112 mcg Tablet 112 mcg PO QAM RF: 0 Symbicort 160-4.5 mcg/actuation Hfa Aerosol Inhaler 2 puff INHALATION BID RF: 0 Lantus Solostar U-100 Insulin 100 unit/mL (3 mL) Insulin Pen 10 unit SUBCUT AMHS RF: 0 Discontinued amoxicillin-pot clavulanate 875-125 mg tablet 1 tab PO Q12H RF: 0 prednisone 10 mg tablet See Rx Instructions .ROUTE .COMPLEX RF: 0 glimepiride 4 mg Tablet 4 mg PO QAM RF: 0 albuterol sulfate [Ventolin HFA] 90 mcg/actuation Hfa Aerosol Inhaler 2 puff INHALATION QID PRN (Reason: Shortness Of Breath) RF: 0 Januvia 25 mg Tablet 25 mg PO QAM RF: 0 Stand-Alone Forms: [facility] Discharge Orders: Discharge Order (Routine); Ordered 11/28/18 Ordered By: Brian Weller Admission Data Admit Date/Time: 11/23/18 22:28 Attending Provider: Brian Weller Admit Provider: Ian Duckworth Primary Care Provider: Francheska Chamberlain Other Providers: Ian Duckworth ; Valeriano Hylton ; Daniel Huff ; Justina Gaitan ; Heron Mullen ; Yang Lantigua ; Abdirizak Sarah ; Fatimah Calvert ; Eric Wood ; Florian Batista ; Dionne Espino ; Yvrose De ; Vivian Camejo ; Jing Herr ; Jessica Hollis ; Miguel Angel Preston ; IRB Approved Study,[facility] Service: Telemetry Other Interventions: Discharge Summary Assessment (RN) Last Done: 11/28/18 16:11 DC Date/Time DO NOT enter until pt leaves facility: 11/28/18 17:15
== END 2018-11-28 17:15 | disposition home or self-care (01) | DRG 813 ==
LOC: ED 17:47 → SUATTDRO 22:28 → 2S 22:28

== ENCOUNTER 2019-03-13 20:31 | Inpatient (IN) ==
[2019-03-13 21:20] LABS: Basophils # (auto) 0.04 K/uL (0-0.2); Basophils % (auto) 0.3 %; Eosinophils # (auto) 0.19 K/uL (0-0.5); Eosinophils % (auto) 1.3 %; Hematocrit (blood only) 32.1 % (37-47); Hemoglobin 9.8 g/dL (12.0-16.0); Immature Granulocytes # (auto) 0.04 K/uL (0.00-0.02); Immature Granulocytes % (auto) 0.3 %; Lymphocytes # (auto) 0.59 K/uL (1.2-3.4); Mean Corpuscular Hgb Conc 30.5 g/dL (32-36); Mean Corpuscular Volume 96.1 fL (80-100); Mean Platelet Volume 11.3 fL (7.4-10.4); Monocytes # (auto) 0.83 K/uL (0.11-0.59); Monocytes % (auto) 5.6 %; Neutrophils % (auto) 88.5 %; Platelet Count 271 K/uL (130-400); RDW Coefficient of Variation 14.1 % (11.5-14.5); RDW Standard Deviation 49.4 fL (36.4-46.3); Red Blood Count 3.34 M/uL (4.2-5.4); White Blood Count 14.89 K/uL (4.8-10.8)
[2019-03-13 21:45] LABS: Albumin Globulin Ratio 0.7 (0.9-2); Albumin Level 2.6 gm/dl (3.4-5.0); BUN Creatinine Ratio 16.8 (10-20); Bilirubin,Total 0.4 mg/dl (0.2-1); Calcium 8.5 mg/dl (8.5-10.1); Creatinine Clr Calc Pharmacy 27.7 ml/min; Est GFR (African American) 49.4; Est GFR (Non-African American) 42.6; Globulin 3.6 gm/dl (2.5-4.0); Total Protein 6.2 gm/dl (6.4-8.2)
--- NOTE | 2019-03-13 21:52 | XRay Report ---
LEFT TIBIA AND FIBULA 2 VIEWS CLINICAL HISTORY: Hematoma. FINDINGS: AP and crosstable lateral views of the left tibia and fibula are obtained. No prior studies are available for comparison at the time of dictation. The skeletal structures are osteopenic. There is no radiographic evidence of left tibial or fibular fracture. The knee and ankle joints are grossl y maintained. Diffuse soft tissue edema is present throughout the left lower extremity. A large media l soft tissue density likely corresponds to the clinically suspected hematoma. IMPRESSION: 1. There is no radiographic evidence of left tibial or fibular fracture. 2. Lower extremity soft tissue edema. 3. A large medial soft tissue density likely corresponds to the clinically suspected hematoma. Electronically signed by: Darian Mallory M.D. 03/13/2019 9:50 PM
[2019-03-13] MEDS ORDERED: ACETAMINOPHEN 500 MG TAB PO STA (22:22)
[2019-03-13 22:40] LABS: Potassium 4.9 mmol/L (3.5-5.1)
[2019-03-13 22:53] LABS: Partial Thromboplastin Ratio 1.3; Partial Thromboplastin Time 34.3 Seconds (21.0-31.0); Prothrombin Time 48.2 Seconds (9.0-12.0)
[2019-03-13] MEDS ORDERED: IOVERSOL 100ml IV PRN (22:57)
[2019-03-13 23:01] LABS: INR 5.3 (0.9-1.1)
--- NOTE | 2019-03-13 23:24 | CT Scan Report ---
CT SCAN OF THE LEFT TIBIA AND FIBULA WITH IV CONTRAST CLINICAL HISTORY: Hematoma. COMPARISON STUDY: Radiographs of the left tibia and fibula dated 03/13/2019. TECHNIQUE: Following the IV administration of 94 cc of Optiray 320, CT scan of the left tibia and fib bailey is performed from the knee joint to the ankle. Images are reviewed in the axial, sagittal, and co kike planes. IV contrast was administered without complication. A dose lowering technique was utiliz ed adhering to the principles of ALARA. FINDINGS: The skeletal structures are osteopenic. There is no evidence of left tibial or fibular frac ture. No bony erosion or periostitis is identified. The knee and ankle joints appear maintained notin g degenerative change. There is a large and multiloculated hyperdense fluid collection identified thr oughout the medial calf. This measures approximately 20.5 x 10 x 6 cm in aggregate dimension and cont ains several hematocrit levels. There are several small foci of active extravasation identified withi n this collection. Diffuse superficial and deep soft tissue edema is present throughout the remainder of the visualized left lower extremity. There is generalized atrophy of the regional musculature. No intramuscular hemorrhage is seen. The Achilles tendon is intact as visualized. The calf arteries are patent noting atherosclerotic calcification and irregularity. Soft tissue edema is also present with in the partially imaged right calf. IMPRESSION: 1. There is a large hematoma identified within the medial right calf as detailed above. This shows se veral foci of active extravasation. 2. No osseous abnormality is seen involving the left tibia or fibula. 3. Diffuse soft tissue edema is present throughout the ankle. Electronically signed by: Darian Mallory M.D. 03/13/2019 11:23 PM
[2019-03-13] MEDS ORDERED: PHYTONADIONE 10 MG in SODIUM CHLORIDE 0.9% 50 ML IV ONE (23:38)
--- NOTE | 2019-03-14 02:06 | Emergency Department Note ---
Entered by Sonia Maciel acting as a scribe for Joseph Chowdhury DO History of Present Illness General Chief complaint: Leg Injury/Pain Source: patient and family (son) History of Present Illness Provider complaint: leg hematoma Onset (ago): day(s) 3 Location: lower extremity Radiation: extremity (back lower extremity) Severity: similar to prior episodes Maximum Pain Intensity: 5 Quality: + other (leg hematoma) Associated symptoms: + other (positive leg pain; negative fall) The patient, who is a 88 year old female with a medical history of hypoglycemia, DVT, and pulmonary embolism, presents to the Emergency Room with complaints of a hematoma on her left leg that started 3 days ago. The patient's son states that hematoma started as a big clot in her legs however it has now radiated towards to the back of her leg. The patient's son expresses that the redness has gotten better but the swelling has become worse. The patient's son states that this symptom is similar to prior episodes. The patient denies any fall or trauma to the leg. The patient states that she has pain around that area. The patient states that she noticed her symptoms when she started a heavy dosage of Coumadin. The patient's son states that the patient was here 3 days ago and this morning because of low glucose levels with her reading this morning being 20. The patient's states that the patient has dementia however she seems normal. The patient states that she is always on oxygen. The patient's son reports that she lives in [facility]. Home Medications Home Medications Medication Instructions Recorded Confirmed Type Symbicort 2 puff INHALATION BID 07/12/18 03/13/19 History amlodipine [Norvasc] 10 mg PO QAM 07/12/18 03/13/19 History atenolol [Tenormin] 50 mg PO QAM 07/12/18 03/13/19 History atorvastatin [Lipitor] 40 mg PO HS 07/12/18 03/13/19 History levothyroxine 112 mcg PO DAILYBB 07/12/18 03/13/19 History acetaminophen 500 mg PO BID 11/23/18 03/13/19 History acetaminophen 500 mg PO DAILY PRN 11/23/18 03/13/19 History docusate sodium 100 mg PO DAILY PRN 11/23/18 03/13/19 History levalbuterol HCl 0.63 mg NEB BID #90 ml 11/28/18 03/13/19 Rx pantoprazole 40 mg PO BID #60 tab 11/28/18 03/13/19 Rx ferrous sulfate 325 mg PO BID 12/25/18 03/13/19 History levalbuterol HCl 0.63 mg INHALATION Q6H PRN 12/25/18 03/13/19 History lorazepam 0.5 mg PO Q6H PRN 12/25/18 03/13/19 History miconazole nitrate [Natalya 1 applic TOPICAL TID PRN 12/25/18 03/13/19 History Antifungal] sertraline 25 mg PO QAM 12/25/18 03/13/19 History Lantus Solostar U-100 Insulin 15 unit SUBCUT HS 03/10/19 03/13/19 History dextran 70-hypromellose (PF) 2 drp OPHTHALMIC (EYE) BID 03/10/19 03/13/19 History [Artificial Tears (PF)] furosemide 20 mg PO QAM 03/10/19 03/13/19 History insulin glargine [Lantus Solostar 20 unit SUBCUT QAM 03/10/19 03/13/19 History U-100 Insulin] sulfamethoxazole-trimethoprim 1 tab PO BID 03/10/19 03/13/19 History warfarin 1 mg PO 5XWK 03/10/19 03/13/19 History warfarin 2 mg PO 2XWK 03/10/19 03/13/19 History Saline Nasal Gel 1 applic TOPICAL BID PRN 03/13/19 03/13/19 History menthol-zinc oxide [Calmoseptine] 1 applic TOPICAL DIRECTED PRN 03/13/19 03/13/19 History Allergies Allergy/AdvReac Type Severity Reaction Status Date / Time latex Allergy Intermediate Unknown Verified 03/13/19 23:43 codeine Allergy Mild Unknown Verified 03/13/19 23:43 RUSSEL Inhibitors Allergy Unknown SEVERE Verified 03/13/19 23:43 DROP IN SODUIM,CONFUSION, PERSONALITY CHANGE Past Med/Surg History Medical History Diastolic CHF (Chronic) History of breast cancer (Chronic) Hypothyroidism (Chronic) Diabetes (Chronic) HLD (hyperlipidemia) (Chronic) HTN (hypertension) (Chronic) Dementia (Chronic) On supplemental oxygen by nasal cannula (Chronic) COPD (chronic obstructive pulmonary disease) (Chronic) Surgical History History of tubal ligation (Chronic) History of tonsillectomy and adenoidectomy (Chronic) History of bilateral mastectomy (Chronic) History of cataract extraction (Chronic) History of laparoscopic cholecystectomy (Chronic) S/P hip replacement (Chronic) Family History Father Coronary heart disease Mother Coronary heart disease Social History Preferred Language: Tristanian Communication Ability: Impaired Director [employer] Required: No Beliefs That Will Affect Care: None marital status: / Current Living Situation: Personal Care Facility Current Living Situation Comment: [facility] Feels Safe at Home: Yes Smoking Status: Never smoker Tobacco Type: cigarettes ; packs per day: 1 ; Second Hand Exposure: No ; Hx Alcohol Use: No Hx Substance Use: No Review of Systems See HPI for pertinent positives & negatives. and A total of 10 systems reviewed and were otherwise negative Physical Exam Vital Signs Vital Signs - 24 hr 03/13/19 20:23 03/13/19 20:53 03/13/19 22:23 Temperature 36.7 C Temperature Source Oral Sepsis Recent Fever Within 48 Hours No Sepsis New/Unexplained Change in Mental Status No Sepsis Action Taken by Nursing No Action Required Pulse Rate 77 Pulse Rate [Apical] 74 Respiratory Rate 20 20 Respiratory Effort / Characteristics Non-Labored Non-Labored Respiratory Depth Normal Normal Blood Pressure 149/65 H Blood Pressure [Right Arm] 138/71 Blood Pressure Mean 93 Blood Pressure Mean [Right Arm] 93 Pulse Oximetry 95 95 Oxygen Delivery Method Nasal Cannula Room Air Room Air Oxygen Flow Rate 4 4 03/13/19 23:28 03/14/19 01:00 Temperature Temperature Source Sepsis Recent Fever Within 48 Hours Sepsis New/Unexplained Change in Mental Status Sepsis Action Taken by Nursing Pulse Rate Pulse Rate [Apical] 70 72 Respiratory Rate 20 20 Respiratory Effort / Characteristics Non-Labored Non-Labored Respiratory Depth Normal Normal Blood Pressure Blood Pressure [Right Arm] 125/60 123/49 L Blood Pressure Mean Blood Pressure Mean [Right Arm] 81 73 Pulse Oximetry 99 98 Oxygen Delivery Method Room Air Room Air Oxygen Flow Rate 4 4 GENERAL: alert, chronically ill-appearing, sitting up, pleasantly demented, 4 liters of oxygen EYE EXAM: normal conjunctiva, OROPHARYNX: no exudate, no erythema, lips, buccal mucosa, and tongue normal and mucous membranes are moist NECK: supple, no nuchal rigidity, no adenopathy, non-tender LUNGS: Diminished at base bilaterally. Normal chest wall mechanics HEART: no murmurs, S1 normal and S2 normal ABDOMEN: abdomen soft, non-tender, normo-active bowel sounds, no masses, no rebound or guarding. BACK: Back is symmetrical on inspection and there is no deformity, no midline tenderness, no CVA tenderness. SKIN: no rashes and no bruising UPPER EXTREMITIES: upper extremities are grossly normal. LOWER EXTREMITIES: No pitting edema. Left calf measures 15 inches circumferential, large hematoma on left medial calf, skin intact, DP 2/4, PT, 1/4, gross sensation intact, diffuse tenderness over hematoma tracking up to the left thigh. NEURO EXAM: Normal sensorium, cranial nerves II-XII grossly intact, normal speech, no gross weakness of arms, no gross weakness of legs. Course ED COURSE: Vital signs were reviewed and showed hypertensive The patients medical record was reviewed The above diagnostic studies were performed and reviewed. ED treatments and interventions as stated above. 2040: The patient was evaluated in room B8. A complete history and physical examination was performed. 2116: Previous PE were small sub segmental at 620. 2251: I reviewed the patient's case with Jacoby Gomez. He will evaluate the patient for further management. 2256: Upon reevaluation, the patient is resting.I discussed my findings with the patient and she understands and agrees with the treatment plan. Based on the patients age, coexisting illnesses, exam and lab findings the decision to treat as an inpatient was made. The patient remained stable while under my care. The patient will be evaluated for further management. Consultations Consultation #1: I reviewed the patient's case with Jacoby Gomez. He will evaluate the patient for further management. Time: 22:52 Administered Medications Ioversol (Optiray 320 100ml) 94 ml IV ONCE PRN PRN Reason: Interaction Checking Stop: 03/17/19 22:56 Last Admin: 03/13/19 22:57 Dose: 94 ml Documented by: [id number] Discontinued Medications Acetaminophen (Tylenol) 500 mg PO NOW STA Stop: 03/13/19 22:23 Last Admin: 03/13/19 22:29 Dose: 500 mg Documented by: [id number] Phytonadione 10 mg/ Sodium (Chloride) 51 mls @ 102 mls/hr IV ONE ONE Stop: 03/14/19 00:07 Last Infusion: 03/14/19 00:44 Dose: 0 mls/hr Documented by: [id number] Admin: 03/14/19 00:13 Dose: 102 mls/hr Documented by: [id number] Medical Decision Making Differential Diagnosis Differential diagnosis includes: musculoskeletal, infection, joint effusion, trauma, lymphedema, idiopathic, CHF, as well as others were entertained. Medical Records Attestation: I reviewed the patient's medical records. Home Medications Current Medication List: was personally reviewed by me Laboratory Data Attestation: I reviewed the patient's lab results. Result diagrams: 03/13/19 20:58 03/13/19 22:13 Lab Results 03/13/19 03/13/19 03/13/19 Range/Units 20:58 20:58 20:58 WBC 14.89 H (4.8-10.8) K/uL RBC 3.34 L (4.2-5.4) M/uL Hgb 9.8 L (12.0-16.0) g/dL Hct 32.1 L (37-47) % MCV 96.1 (80-100) fL MCH 29.3 (25-34) pg MCHC 30.5 L (32-36) g/dL RDW Std Deviation 49.4 H (36.4-46.3) fL RDW Coeff of Van 14.1 (11.5-14.5) % Plt Count 271 (130-400) K/uL MPV 11.3 H (7.4-10.4) fL Immature Gran % (Auto) 0.3 % Neut % (Auto) 88.5 % Lymph % (Auto) 4.0 % [place] % (Auto) 5.6 % Eos % (Auto) 1.3 % Baso % (Auto) 0.3 % Immature Gran # (Auto) 0.04 H (0.00-0.02) K/uL Neut # (Auto) 13.20 H (1.4-6.5) K/uL Lymph # (Auto) 0.59 L (1.2-3.4) K/uL [place] # (Auto) 0.83 H (0.11-0.59) K/uL Eos # (Auto) 0.19 (0-0.5) K/uL Baso # (Auto) 0.04 (0-0.2) K/uL PT Cancelled INR Cancelled APTT (21.0-31.0) Seconds PTT Ratio Sodium 140 (136-145) mmol/L Potassium (3.5-5.1) mmol/L Chloride 97 L (98-107) mmol/L Carbon Dioxide 42 H* (21-32) mmol/L Anion Gap 1.0 L (3-11) BUN 19 H (7-18) mg/dl Creatinine 1.14 (0.6-1.2) mg/dl Est Cr Clr Drug Dosing 27.7 ml/min Est GFR ( Amer) 49.4 Est GFR (Non-Af Amer) 42.6 BUN/Creatinine Ratio 16.8 (10-20) Glucose 127 H (70-99) mg/dl Calcium 8.5 (8.5-10.1) mg/dl Total Bilirubin 0.4 (0.2-1) mg/dl AST (15-37) U/L ALT 22 (12-78) U/L Alkaline Phosphatase 84 (45-117) U/L Total Protein 6.2 L (6.4-8.2) gm/dl Albumin 2.6 L (3.4-5.0) gm/dl Globulin 3.6 (2.5-4.0) gm/dl Albumin/Globulin Ratio 0.7 L (0.9-2) Lipase 136 (73-393) U/L Specimen Hemolysis 03/13/19 03/13/19 Range/Units 22:13 22:13 WBC (4.8-10.8) K/uL RBC (4.2-5.4) M/uL Hgb (12.0-16.0) g/dL Hct (37-47) % MCV (80-100) fL MCH (25-34) pg MCHC (32-36) g/dL RDW Std Deviation (36.4-46.3) fL RDW Coeff of Van (11.5-14.5) % Plt Count (130-400) K/uL MPV (7.4-10.4) fL Immature Gran % (Auto) % Neut % (Auto) % Lymph % (Auto) % [place] % (Auto) % Eos % (Auto) % Baso % (Auto) % Immature Gran # (Auto) (0.00-0.02) K/uL Neut # (Auto) (1.4-6.5) K/uL Lymph # (Auto) (1.2-3.4) K/uL [place] # (Auto) (0.11-0.59) K/uL Eos # (Auto) (0-0.5) K/uL Baso # (Auto) (0-0.2) K/uL PT 48.2 H INR 5.3 H APTT 34.3 H (21.0-31.0) Seconds PTT Ratio 1.3 Sodium (136-145) mmol/L Potassium 4.9 (3.5-5.1) mmol/L Chloride (98-107) mmol/L Carbon Dioxide (21-32) mmol/L Anion Gap (3-11) BUN (7-18) mg/dl Creatinine (0.6-1.2) mg/dl Est Cr Clr Drug Dosing ml/min Est GFR ( Amer) Est GFR (Non-Af Amer) BUN/Creatinine Ratio (10-20) Glucose (70-99) mg/dl Calcium (8.5-10.1) mg/dl Total Bilirubin (0.2-1) mg/dl AST 29 (15-37) U/L ALT (12-78) U/L Alkaline Phosphatase (45-117) U/L Total Protein (6.4-8.2) gm/dl Albumin (3.4-5.0) gm/dl Globulin (2.5-4.0) gm/dl Albumin/Globulin Ratio (0.9-2) Lipase (73-393) U/L Specimen Hemolysis Imaging Data Radiologist's Impression: Radiology results as stated below per my review and the radiologist's interpretation: CT SCAN OF THE LEFT TIBIA AND FIBULA WITH IV CONTRAST CLINICAL HISTORY: Hematoma. COMPARISON STUDY: Radiographs of the left tibia and fibula dated 03/13/2019. TECHNIQUE: Following the IV administration of 94 cc of Optiray 320, CT scan of the left tibia and fibula is performed from the knee joint to the ankle. Images are reviewed in the axial, sagittal, and coronal planes. IV contrast was administered without complication. A dose lowering technique was utilized adhering to the principles of ALARA. FINDINGS: The skeletal structures are osteopenic. There is no evidence of left tibial or fibular fracture. No bony erosion or periostitis is identified. The knee and ankle joints appear maintained noting degenerative change. There is a large and multiloculated hyperdense fluid collection identified throughout the medial calf. This measures approximately 20.5 x 10 x 6 cm in aggregate dimension and contains several hematocrit levels. There are several small foci of active extravasation identified within this collection. Diffuse superficial and deep soft tissue edema is present throughout the remainder of the visualized left lower extremity. There is generalized atrophy of the regional musculature. No intramuscular hemorrhage is seen. The Achilles tendon is intact as visualized. The calf arteries are patent noting atherosclerotic calcification and irregularity. Soft tissue edema is also present within the partially imaged right calf. IMPRESSION: 1. There is a large hematoma identified within the medial right calf as detailed above. This shows several foci of active extravasation. 2. No osseous abnormality is seen involving the left tibia or fibula. 3. Diffuse soft tissue edema is present throughout the ankle. Electronically signed by: Darian Mallory M.D. 03/13/2019 11:23 PM LEFT TIBIA AND FIBULA 2 VIEWS CLINICAL HISTORY: Hematoma. FINDINGS: AP and crosstable lateral views of the left tibia and fibula are ob tained. No prior studies are available for comparison at the time of dictation. The skeletal structures are osteopenic. There is no radiographic evidence of left tibial or fibular fracture. The knee and ankle joints are grossly maintained. Diffuse soft tissue edema is present throughout the left lower extremity. A large medial soft tissue density likely corresponds to the clinically suspected hematoma. IMPRESSION: 1. There is no radiographic evidence of left tibial or fibular fracture. 2. Lower extremity soft tissue edema. 3. A large medial soft tissue density likely corresponds to the clinically suspected hematoma. Electronically signed by: Darian Mallory M.D. 03/13/2019 9:50 PM Blood Pressure Blood Pressure Findings: Normal blood pressure MDM Narrative Patient is a 88-year-old female who presents the ER for left calf pain. She was seen here earlier today for low blood sugar. She has been having swelling in the calf for some time there is a question if this is been over the past week. There is no obvious signs of trauma. She does have dementia. Family member at bedside notes that he is not the normal criminal justice instructor. IV was established blood work was obtained. Chronically on 4 L nasal cannula. Labs show a mild leukocytosis of 14,000. Hemoglobin dropped from 11.5-9.8 from earlier today. INR was 5.3. CO2 chronically elevated at 42. Previous charts were reviewed in small PEs on 12/25 of this year. Based on the rapid swelling of the calf discussed with family at bedside and made the decision to reverse her with IV vitamin K. CT of the lower extremity did show active extravasation. She did still have pulses. Medial compartment was full but had sensation throughout. Do not believe that this is a compartment syndrome at this time. Discussed with the hospitalist and patient will be admitted for further work-up. Impression & Plan Calf pain, Hematoma, Elevated INR Discharge Plan Visit Data Chief Complaint: Leg Injury/Pain ED Provider: Joseph Chowdhury Discharge Problem: Calf pain, Hematoma, Elevated INR Patient Disposition: Being Evaluated by Hospitalist Forms Stand Alone Forms: [facility] Prescriptions Prescriptions: No Action acetaminophen 500 mg Tablet 500 mg PO DAILY PRN (Reason: Fever Or Pain) RF: 0 acetaminophen 500 mg Tablet 500 mg PO BID RF: 0 docusate sodium 100 mg Capsule 100 mg PO DAILY PRN (Reason: Constipation) RF: 0 levalbuterol HCl 0.63 mg/3 mL Solution For Nebulization 0.63 mg NEB BID Qty: 90 RF: 0 pantoprazole 40 mg Tablet,Delayed Release (Dr/Ec) 40 mg PO BID Qty: 60 RF: 1 levalbuterol HCl 0.63 mg/3 mL Solution For Nebulization 0.63 mg INHALATION Q6H PRN (Reason: sob/wheezing) RF: 0 miconazole nitrate [Natalya Antifungal] 2 % Cream 1 applic TOPICAL TID PRN (Reason: skin breakdown) RF: 0 lorazepam 0.5 mg tablet 0.5 mg PO Q6H PRN (Reason: Anxiety) RF: 0 sertraline 25 mg tablet 25 mg PO QAM RF: 0 ferrous sulfate 325 mg (65 mg iron) Tablet,Delayed Release (Dr/Ec) 325 mg PO BID RF: 0 sulfamethoxazole-trimethoprim 800-160 mg tablet 1 tab PO BID RF: 0 warfarin 2 mg tablet 2 mg PO 2XWK RF: 0 warfarin 1 mg tablet 1 mg PO 5XWK RF: 0 Lantus Solostar U-100 Insulin 100 unit/mL (3 mL) insulin pen 20 unit subcut QAM RF: 0 Artificial Tears (PF) 0.1-0.3 % Dropperette 2 drp OPHTHALMIC (EYE) BID RF: 0 furosemide 20 mg tablet 20 mg PO QAM RF: 0 Lantus Solostar U-100 Insulin 100 unit/mL (3 mL) insulin pen 15 unit SUBCUT HS RF: 0 Calmoseptine 0.44-20.6 % Ointment 1 applic TOPICAL DIRECTED PRN (Reason: Skin Irritation) RF: 0 atorvastatin [Lipitor] 40 mg Tablet 40 mg PO HS RF: 0 amlodipine [Norvasc] 10 mg Tablet 10 mg PO QAM RF: 0 atenolol [Tenormin] 50 mg Tablet 50 mg PO QAM RF: 0 levothyroxine 112 mcg Tablet 112 mcg PO DAILYBB RF: 0 Symbicort 160-4.5 mcg/actuation Hfa Aerosol Inhaler 2 puff INHALATION BID RF: 0 Saline Nasal Gel 1 applic topical BID PRN (Reason: dryness) RF: 0 Referrals Referrals: [facility], [facility] [Primary Care Provider] - Discharge Problem: Calf pain Qualifiers: Laterality: left Qualified Code(s): M79.662 - Pain in left lower leg The scribe's documentation has been prepared under my direction and personally reviewed by me in its entirety. I confirm that the note above accurately reflects all work, treatment, procedures, and medical decision making performed by me.
[2019-03-14] MEDS ORDERED: NITROGLYCERIN SL 0.4 MG/TAB TAB SL PRN (03:46)
[2019-03-14] MEDS ORDERED: POLYETHYLENE (MIRALAX) 17 GM PACK PO PRN (03:46)
[2019-03-14] MEDS ORDERED: MICONAZOLE NITRATE 2% CR 30 GM TUBE TOP PRN (03:46)
[2019-03-14] MEDS ORDERED: MENTHOL-ZINC OXIDE 360 APPLN/120 GM TUBE EXT PRN (03:46)
[2019-03-14] MEDS ORDERED: SALINE NASAL GEL (AYR) 14.1 GM TUBE PRN (03:46)
[2019-03-14] MEDS ORDERED: ONDANSETRON INJ 2 MG/ML 2 ML VIAL IV PRN ×2 (03:46→20:19)
[2019-03-14] MEDS ORDERED: LEVALBUTEROL HCL 0.63 MG/3 ML NEB INH PRN (03:46)
[2019-03-14] MEDS ORDERED: DOCUSATE SODIUM 100 MG CAP PO PRN (03:46)
[2019-03-14] MEDS ORDERED: PHARMACY GLYCEMIC MGMT CONSULT PRN (03:59)
[2019-03-14] MEDS ORDERED: INSULIN ASPART 100 UNITS/ML 3 ML PEN SC ONE (04:00)
[2019-03-14] MEDS: D5W AND NSS 1,000 ML IV SCH (04:48)
--- NOTE | 2019-03-14 05:45 | History and Physical Report ---
DATE OF ADMISSION: 03/14/2019 CHIEF COMPLAINT: Left leg calf pain and hematoma. HISTORY OF PRESENT ILLNESS: This is an 88-year-old female with past medical history significant for severe COPD, chronic respiratory failure on 3.5 liters oxygen, diabetes, hypertension, hyperlipidemia, diastolic CHF, chronic kidney disease stage III, history of paroxysmal atrial fibrillation, hypothyroidism, history of dementia, oriented to name only, history of breast cancer status post mastectomy and radiation. Patient was here in last week of December and at that time she was found to have bilateral lower lung pulmonary embolism and she was discharged on Coumadin. She came to the ER yesterday morning and also on 03/10/2019 with confusion at long-term and found to have hypoglycemia and she was discharged and since yesterday evening 4:00 p.m., she noticed swelling in the leg and severe pain and she was brought in here and she has a big hematoma in the left calf. Distal pulses were okay as per ER and INR was 5 and she received a dose of IV vitamin K. The patient lives at the [facility]. She ambulates with a walker. She is a DNR. I spoke with her son on the phone and could not get any history from the patient because of dementia. Patient is oriented to name only and pleasantly confused which seems to be her baseline. As per son, she was doing okay until this happened. Currently, patient is hemodynamically stable, afebrile. ALLERGIES: LATEX, CODEINE, RUSSEL INHIBITORS. PAST MEDICAL HISTORY: As mentioned above. PAST SURGICAL HISTORY: History of tubal ligation, history of tonsillectomy and adenoidectomy, history of bilateral mastectomy, history of cataract extraction, history of laparoscopic cholecystectomy, status post hip replacement. MEDICATIONS: The patient is on Coumadin 2 mg on and Sundays and 1 mg other days, insulin Lantus 32 units b.i.d., albuterol 2 puffs 4 times p.r.n., Ativan 0.5 mg b.i.d. p.r.n., Zoloft 25 mg p.o. daily, amlodipine 10 mg p.o. daily, ferrous sulfate 325 mg p.o. b.i.d., Tylenol 500 mg p.o. q. 6 hours p.r.n., Protonix 40 mg p.o. b.i.d., Colace 50 mg p.o. b.i.d. p.r.n., atenolol 50 mg p.o. daily, levothyroxine 112 mcg p.o. daily, Symbicort 160/4.5 mcg 2 puffs b.i.d., Lasix 20 mg p.o. daily p.r.n., Lipitor 40 mg p.o. daily, DuoNebs p.r.n., aspirin 81 mg p.o. daily, oxygen 3.5 liters continuous. FAMILY HISTORY: Father , had coronary artery disease. Mother , had coronary artery disease. SOCIAL HISTORY: Currently at [facility]. Former smoker, smoked 1 pack a day for 30 years, quit in 1973. No alcohol use, no drug use. REVIEW OF SYSTEMS: Could not get complete review of systems as the patient is confused, just oriented to name only. PHYSICAL EXAMINATION: GENERAL: The patient is alert and awake, oriented to name only, not in acute distress. VITAL SIGNS: Temperature 36.7, pulse 72, respiratory rate 20, blood pressure 123/49, oxygen 98% on 4 liters. HEENT: No pallor, no icterus. Pupils equal, round, reactive to light. NECK: No JVD, no neck masses, no carotid bruits. CARDIOVASCULAR: S1, S2 heard, regular rate and rhythm, no murmur, no gallop. RESPIRATORY SYSTEM: Normal AP diameter. No accessory muscle use. No wheezing, no crackles. ABDOMEN: Soft, bowel sounds present, nontender. No distention. CENTRAL NERVOUS SYSTEM: Alert and oriented to name only, obeys simple commands. Moves extremities. EXTREMITIES: Right calf region is swollen, erythematous, and somewhat warm. LABORATORY DATA: WBC 14.8, hemoglobin 9.8, hematocrit 32.1, platelets 271. PT 28.2, INR 5.3, APTT 34.3. Sodium 140, potassium 4.9, chloride 97, bicarbonate 42, BUN 19, creatinine 1.14, serum glucose 127, calcium 8.5, total bilirubin 0.4, AST 29, ALT 22, alkaline phosphatase 84, lipase 136. IMAGING DATA: Tibia, fibula x-ray, lower extremity soft tissue edema. Suspected hematoma, lower extremity CT, on the left side. Large hematoma identified of the medial right calf. Diffuse soft edema is present throughout the ankle. ASSESSMENT AND PLAN: This is an 88-year-old female who is on Coumadin for recent pulmonary embolism, found to have large left calf hematoma. 1. Large left calf hematoma. INR is 5. She is on Coumadin for recent pulmonary embolism. Given IV vitamin K 5 mg. We will consult orthopedics in a.m. We will keep her n.p.o. for any procedures. 2. Pulmonary embolism, was diagnosed in last week of December. Currently INR is getting reversed for above reasons. Will consult vascular surgery for any IVC filter. 3. Anemia acute blood loss. From above.. hb 9.8. Baseline around 11.Will follow labs. 3. History of diabetes, on Lantus 20 units b.i.d. at home, which we will hold as the patient came to the ER in the last few days 2 times for hypoglycemic episodes. Currently, the patient is n.p.o. placed on sliding scale. We will also put on D5 normal saline at 50 mL per hour and consult glycemic pharmacy. 4. History of severe chronic obstructive pulmonary disease. Continue inhalers and nebs. Chronic respiratory failure secondary to above, on oxygen 3.5 liters continuously, which she will continue. 5. Diastolic congestive heart failure. Currently on gentle fluids, on Lasix. We will monitor for any volume overload. 6. Paroxysmal atrial fibrillation, on atenolol. Coumadin held for above reasons. 7. Hypertension, on amlodipine and atenolol. We will monitor the blood pressure. 8. Depression, on Zoloft. 9. Dementia, pleasantly confused. Monitor for any delirium. 10. Deep venous thrombosis prophylaxis, currently INR is 5, getting reversed. Could not place sequential compression devices because of the large hematoma on the left calf. 11. Disposition: Admit to med/surg tele, PT, OT. Currently at [facility]. May need SNF placement. Social service to help with discharge planning. Code status DNR as per [facility] and as per my discussion with the son. LESLI
[2019-03-14] MEDS: LEVOTHYROXINE SODIUM 112 MCG TABLET PO SCH (06:01)
[2019-03-14] MEDS: LEVALBUTEROL HCL 0.63 MG/3 ML NEB NEB SCH ×2 (07:36→19:45)
[2019-03-14 08:02] LABS: Basophils # (auto) 0.05 K/uL (0-0.2); Basophils % (auto) 0.4 %; Eosinophils # (auto) 0.07 K/uL (0-0.5); Eosinophils % (auto) 0.5 %; Hematocrit (blood only) 23.7 % (37-47); Hemoglobin 7.1 g/dL (12.0-16.0); Immature Granulocytes # (auto) 0.04 K/uL (0.00-0.02); Immature Granulocytes % (auto) 0.3 %; Lymphocytes # (auto) 0.87 K/uL (1.2-3.4); Lymphocytes % (auto) 6.7 %; Mean Corpuscular Volume 95.2 fL (80-100); Mean Platelet Volume 11.5 fL (7.4-10.4); Monocytes # (auto) 0.83 K/uL (0.11-0.59); Monocytes % (auto) 6.4 %; Neutrophils # (auto) 11.21 K/uL (1.4-6.5); Neutrophils % (auto) 85.7 %; Platelet Count 228 K/uL (130-400); RDW Coefficient of Variation 14.1 % (11.5-14.5); RDW Standard Deviation 48.8 fL (36.4-46.3); Red Blood Count 2.49 M/uL (4.2-5.4); White Blood Count 13.07 K/uL (4.8-10.8)
[2019-03-14 08:10] LABS: INR 1.6 (0.9-1.1); Prothrombin Time 15.9 Seconds (9.0-12.0)
[2019-03-14 08:31] LABS: RBC Morphology Unremarkable
[2019-03-14 08:48] LABS: BUN Creatinine Ratio 16.8 (10-20); Calcium 8.2 mg/dl (8.5-10.1); Creatinine Clr Calc Pharmacy 24.6 ml/min; Est GFR (African American) 42.9; Magnesium 1.7 mg/dl (1.8-2.4); Potassium 5.1 mmol/L (3.5-5.1)
[2019-03-14 08:59] LABS: Estimated Average Glucose 160 mg/dl; Hemoglobin A1C 7.2 % (4.5-5.6)
--- NOTE | 2019-03-14 09:30 | Consultation ---
Date of Consultation March 14, 2019 Assessment & Plan (1) Hematoma: At this point patient had a CAT scan which showed a large subcutaneous left calf hematoma. There are a few small areas of extravasation of contrast however they did not come from the major arterial branch. There is no indication at this time to proceed with any vascular intervention such as embolization of the bleeding sites to the left lower extremity. I believe this time the best thing to do would be to normalize her INR as already done. She will also most likely need a drainage of the hematoma. At this point I would it up to the primary service if she should go back on her anticoagulation being that she did not have any evidence of deep venous thrombosis in the past but does have a history of small peripheral pulmonary emboli in the lung odom back in December of this year. She also has chronic atrial fibrillation which may also require anticoagulation. I do not see any indication at this point for filter insertion on this 88-year-old female. Thank you very much for letting us participate in the care of this patient. Please call if needed. History of Present Illness Reason for Consultation: Reason for consultation requested orders was for the calf hematoma. Attending Physician: Miguel Angel Preston MD History of Present Illness This is an 88-year-old female with a history of severe COPD requiring 3-1/2 L of oxygen. She is also diabetic and hypertensive with hyperlipidemia diastolic congestive heart failure chronic kidney disease stage III atrial fibrillation hypothyroidism dementia and history of breast cancer post mastectomy and radiation. She presented to the emergency room on 03/10 with confusion. She was complaining of severe left leg pain and swelling. She was noted to have a left calf hematoma. She is on Coumadin and her INR was greater than 5. She denies any history of trauma however she is only oriented to name. Her son claims that it started on Saturday and got progressively worse over the next day until she came to the emergency department. Allergies Allergy/AdvReac Type Severity Reaction Status Date / Time latex Allergy Intermediate Unknown Verified 03/13/19 23:43 codeine Allergy Mild Unknown Verified 03/13/19 23:43 RUSSEL Inhibitors Allergy Unknown SEVERE Verified 03/13/19 23:43 DROP IN SODUIM,CONFUSION, PERSONALITY CHANGE Home Medications Home Medications Medication Instructions Recorded Confirmed Type Symbicort 2 puff INHALATION BID 07/12/18 03/13/19 History amlodipine [Norvasc] 10 mg PO QAM 07/12/18 03/13/19 History atenolol [Tenormin] 50 mg PO QAM 07/12/18 03/13/19 History atorvastatin [Lipitor] 40 mg PO HS 07/12/18 03/13/19 History levothyroxine 112 mcg PO DAILYBB 07/12/18 03/13/19 History acetaminophen 500 mg PO BID 11/23/18 03/13/19 History acetaminophen 500 mg PO DAILY PRN 11/23/18 03/13/19 History docusate sodium 100 mg PO DAILY PRN 11/23/18 03/13/19 History levalbuterol HCl 0.63 mg NEB BID #90 ml 11/28/18 03/13/19 Rx pantoprazole 40 mg PO BID #60 tab 11/28/18 03/13/19 Rx ferrous sulfate 325 mg PO BID 12/25/18 03/13/19 History levalbuterol HCl 0.63 mg INHALATION Q6H PRN 12/25/18 03/13/19 History lorazepam 0.5 mg PO Q6H PRN 12/25/18 03/13/19 History miconazole nitrate [Natalay 1 applic TOPICAL TID PRN 12/25/18 03/13/19 History Antifungal] sertraline 25 mg PO QAM 12/25/18 03/13/19 History Lantus Solostar U-100 Insulin 22 unit SUBCUT BID 03/10/19 03/14/19 History dextran 70-hypromellose (PF) 2 drp OPHTHALMIC (EYE) BID 03/10/19 03/13/19 History [Artificial Tears (PF)] furosemide 20 mg PO QAM 03/10/19 03/13/19 History sulfamethoxazole-trimethoprim 1 tab PO BID 03/10/19 03/13/19 History warfarin 1 mg PO 5XWK 03/10/19 03/13/19 History warfarin 2 mg PO 2XWK 03/10/19 03/13/19 History Saline Nasal Gel 1 applic TOPICAL BID PRN 03/13/19 03/13/19 History menthol-zinc oxide [Calmoseptine] 1 applic TOPICAL DIRECTED PRN 03/13/19 03/13/19 History Patient History Medical History Diastolic CHF (Chronic) History of breast cancer (Chronic) Hypothyroidism (Chronic) Diabetes (Chronic) HLD (hyperlipidemia) (Chronic) HTN (hypertension) (Chronic) Dementia (Chronic) On supplemental oxygen by nasal cannula (Chronic) COPD (chronic obstructive pulmonary disease) (Chronic) Surgical History History of tubal ligation (Chronic) History of tonsillectomy and adenoidectomy (Chronic) History of bilateral mastectomy (Chronic) History of cataract extraction (Chronic) History of laparoscopic cholecystectomy (Chronic) S/P hip replacement (Chronic) Family History Father Coronary heart disease Mother Coronary heart disease Social History Preferred Language: Uzbek Communication Ability: Impaired [employer] Consultant Required: No Beliefs That Will Affect Care: None marital status: / Current Living Situation: Personal Care Facility Current Living Situation Comment: [facility] Other Information That Helps Us Care for You: No Feels Safe at Home: Yes Safety Concerns: Feels Safe At This Time Smoking Status: Unknown if ever smoked Hx Alcohol Use: No Hx Substance Use: No Review of Systems Review of Systems: Review of systems is unreliable be in the patient is only oriented to name. She does complain of pain in her left leg as the HPI. Physical Exam Constitutional: WD/WN, vitals as above Cardiovascular: Extremities: normal capillary refill and + edema (There is significant edema in the left lower extremity secondary to the large hematoma.) She does have a a slightly decreased but palpable left dorsalis pedis pulse. Musculoskeletal: There is a large ecchymotic area in the left calf medially. Its consistent with a large subcutaneous hematoma. Results & Data Vital Signs (Past 12 Hours) Vital Signs Temp Pulse Pulse Pulse Resp BP BP 03/14/19 07:39 63 18 03/14/19 07:07 36.9 C 86 16 110/54 L 03/14/19 06:24 72 03/14/19 03:48 36.8 C 84 16 148/50 H 03/14/19 03:15 82 20 137/61 03/14/19 03:00 72 20 123/49 L 03/14/19 01:00 72 20 123/49 L 03/13/19 23:28 70 20 125/60 03/13/19 22:23 74 20 138/71 Pulse Ox 03/14/19 07:39 98 03/14/19 07:07 94 03/14/19 06:24 03/14/19 03:48 89 L 03/14/19 03:15 98 03/14/19 03:00 98 03/14/19 01:00 98 03/13/19 23:28 99 03/13/19 22:23 95
[2019-03-14] MEDS: ACETAMINOPHEN 500 MG TAB PO SCH ×2 (09:39→21:46)
[2019-03-14] MEDS: AMLODIPINE BESYLATE 5 MG TAB PO SCH (09:40)
[2019-03-14] MEDS: FUROSEMIDE 20 MG TAB PO SCH (09:40)
[2019-03-14] MEDS: FERROUS SULFATE 325 MG TAB PO SCH ×2 (09:41→21:42)
[2019-03-14] MEDS: SERTRALINE HCL 50 MG TABLET PO SCH (09:41)
[2019-03-14] MEDS: ATENOLOL 50 MG TABLET PO SCH (09:42)
[2019-03-14] MEDS: BUDESONIDE/FORMOTEROL FUMARATE 160/4.5 60 PUFFS/INHALER INH SCH ×2 (09:42→21:46)
[2019-03-14] MEDS: PANTOprazole 40 MG TAB PO SCH ×2 (09:42→21:37)
[2019-03-14] MEDS: ARTIFICIAL TEARS OP SCH ×2 (09:54→21:42)
--- NOTE | 2019-03-14 11:12 | Pharmacy Report ---
Glycemic Control Consultation - Date of Service March 14, 2019 - Scope Scope: Glycemic Pharmacist consulted for glycemic control and to write orders per [facility] inpatient glycemic control protocol - Objective Weight: 58.967 kg Accuchecks BSG (last 24hrs): 03/13/19 03/14/19 03/14/19 20:58 04:45 06:48 Glucose 127 H 135 H POC Glucose 119 H 03/14/19 09:34 Glucose POC Glucose 195 H Laboratory Data (last 24hrs): 03/13/19 03/13/19 03/14/19 20:58 22:13 06:48 Potassium 4.9 5.1 Carbon Dioxide 42 H* 36 H Anion Gap 1.0 L 6.0 Creatinine 1.14 1.28 H Est Cr Clr Drug Dosing 27.7 24.6 HbA1c: Hemoglobin A1c 7.2 % (4.5-5.6) H 03/14/19 06:48 - Recent Pertinent Medications Outpatient Anti-diabetic Regimen: * Lantus 22 units SQ BID - Assessment & Plan Assessment & Plan: ASSESSMENT: * 88yo T2DM female with adequate outpatient control per A1c * Outpatient regimen is all basal insulin, therefore is probably covering some prandial needs as well. * Will convert outpatient dosing of 44 units/day to SQ basal bolus insulin regimen split 50% basal: 50% prandial to prevent hypo when NPO. * Equates to Lantus 11 units SQ BID, NovoLog per CF = 35, CR = 12 * Pt is NPO for possible surgical intervention of hematoma - will further reduce dosing for decreased PO intake PLAN FOR INPATIENT GLYCEMIC CONTROL: * Basal insulin * Lantus 7 units SQ BID while NPO * Bolus insulin * NovoLog per scale ACHS or Q6hrs while NPO * Goal Range: Low 110 mg/dL - High 140 mg/dL * Correction Factor: 35 mg/dL/unit * Nutritional / Prandial insulin per carb ratio of 1 unit per 12 grams CHO consumed * Please note that the plan above was derived based on current level of insulin resistance and hospital stress. These recommendations are appropriate for inpatient admission only. Plan of care upon discharge will need to be reassessed to avoid potential outpatient hypo/hyperglycemia. Thank you.
[2019-03-14] MEDS: INSULIN GLARGINE SOLOSTAR 100 UNITS/ML 3 ML PEN SC SCH ×2 (11:13→21:43)
[2019-03-14] MEDS: INSULIN ASPART 100 UNITS/ML 3 ML PEN SC SCH ×4 (11:15→21:51)
[2019-03-14 12:35] LABS: Hematocrit (blood only) 20.5 % (37-47); Hemoglobin 6.4 g/dL (12.0-16.0)
[2019-03-14] MEDS ORDERED: SODIUM CHLORIDE 0.9% 250 ML IV PRN (13:14)
--- NOTE | 2019-03-14 13:34 | Hospitalist Progress Note ---
Date of Service March 14, 2019 Assessment & Plan (1) Hematoma: A huge hematoma left calf likely secondary to trauma not documented Ortho evaluation pending May need evacuation of the hematoma (2) Acute blood loss anemia: Hemoglobin dropped to below 7 likely secondary to ongoing bleeding INR has been reversed to decrease bleeding Will get 2 units of blood transfusion We will monitor H&H (3) Diabetes: Has been on insulin Recently noted to have hypoglycemia on 2 separate occasions required emergency room visit Pharmacy consult Likely to need decreasing the basal insulin (4) Hypoglycemia: As above (5) Paroxysmal A-fib: Rate is controlled and in sinus rhythm Continue current medication Discussed with the son the risk of anticoagulation at this point Will likely to discontinue Coumadin on discharge (6) Pulmonary embolism: History of tiny pulmonary embolism without evidence of DVT Has been on Coumadin Risk of bleeding seems to be high Vascular surgery consulted for possible IVC filter Discussed with the son Will likely discontinue Coumadin on discharge (7) Dementia: No acute delirium DVT prophylaxis SCDs CODE STATUS DNR/DNI Disposition Awated Subjective 03/14 The patient was seen and examined in medical telemetry unit in presence of the son She complains to have some left leg pain, denies any other symptoms She does not have any shortness of breath and/or chest pain Review of Systems Review of Systems: All systems reviewed and are unremarkable except as noted below Constitutional: + fatigue and + weakness Gastrointestinal: + problem reported (Epigastric discomfort) Musculoskeletal: + back pain and + problem reported (Left leg pain) Physical Exam Physical Exam: Lying in bed with minimal discomfort Constitutional: + ill appearing; no acute distress Eyes: PERRL, conjunctivae normal, anicteric sclerae ENMT: external ear and nose normal, oropharynx normal Neck: trachea midline, no thyromegaly Respiratory: normal respiratory effort; no respiratory distress Auscultation: + diminished lung sounds Cardiovascular: Rate/Rhythm: regular rate and regular rhythm Extremities: + edema (Bilaterally more on the left than the right) Gastrointestinal (Abdomen): Inspection/Auscultation: abdomen normal to inspection Percussion/Palpation: + abdomen tender (Mildly tender in the epigastrium) Musculoskeletal: Extremities: + limited ROM of extremities (Left lower extrem ity movement is limited with pain due to a huge hematoma involving the left calf) Skin: Has multiple bruises and mostly left lower leg Neurologic: Pleasantly confused Lymphatic: no cervical or axillary lymphadenopathy Results & Data Vital Signs (Past 12 Hours) Vital Signs Temp Pulse Pulse Pulse Resp BP BP 03/14/19 12:02 36.7 C 75 75 18 120/59 L 03/14/19 07:39 63 18 03/14/19 07:07 36.9 C 86 16 110/54 L 03/14/19 06:24 72 03/14/19 03:48 36.8 C 84 16 148/50 H 03/14/19 03:15 82 20 137/61 03/14/19 03:00 72 20 123/49 L Pulse Ox 03/14/19 12:02 98 03/14/19 07:39 98 03/14/19 07:07 94 03/14/19 06:24 03/14/19 03:48 89 L 03/14/19 03:15 98 03/14/19 03:00 98 Laboratory Results Short CBC 03/13/19 03/14/19 03/14/19 Range/Units 20:58 06:48 12:06 WBC 14.89 H 13.07 H (4.8-10.8) K/uL Hgb 9.8 L 7.1 L 6.4 L* (12.0-16.0) g/dL Hct 32.1 L 23.7 L 20.5 L* (37-47) % Plt Count 271 228 (130-400) K/uL BMP 03/13/19 03/13/19 03/14/19 20:58 22:13 06:48 Sodium 140 139 Potassium 4.9 5.1 Chloride 97 L 96 L Carbon Dioxide 42 H* 36 H BUN 19 H 22 H Creatinine 1.14 1.28 H Glucose 127 H 135 H Calcium 8.5 8.2 L Liver Function 03/13/19 03/13/19 Range/Units 20:58 22:13 Total Bilirubin 0.4 (0.2-1) mg/dl AST 29 (15-37) U/L ALT 22 (12-78) U/L Alkaline Phosphatase 84 (45-117) U/L Albumin 2.6 L (3.4-5.0) gm/dl Medications Administered Current Inpatient Medications Current Inpatient Medications Acetaminophen (Tylenol) 500 mg PO BID [facility] Stop: 04/13/19 08:59 Last Admin: 03/14/19 09:39 Dose: 500 mg Documented by: Acetaminophen (Tylenol) 650 mg PO Q4H PRN PRN Reason: Pain or Fever Stop: 04/13/19 03:45 Amlodipine Besylate (Norvasc) 10 mg PO QAM [facility] Stop: 04/13/19 08:59 Last Admin: 03/14/19 09:40 Dose: 10 mg Documented by: Artificial Tears (Artificial Tears) 2 drops OP BID [facility] Stop: 04/13/19 08:59 Last Admin: 03/14/19 09:54 Dose: 2 drops Documented by: Atenolol (Tenormin) 50 mg PO QAM [facility] Stop: 04/13/19 08:59 Last Admin: 03/14/19 09:42 Dose: 50 mg Documented by: Atorvastatin Calcium (Lipitor) 40 mg PO HS [facility] Stop: 04/13/19 20:59 Budesonide/Formoterol Fumarate (Symbicort 160mcg/4.5mcg) 2 puffs INH BID [facility] Stop: 04/13/19 08:59 Last Admin: 03/14/19 09:42 Dose: 2 puffs Documented by: Calamine/Phenol (Calmoseptine) 1 appln EXT PRN PRN PRN Reason: .IRRITATION Stop: 04/13/19 03:45 Docusate Sodium (Colace) 100 mg PO DAILY PRN PRN Reason: Constipation Stop: 04/13/19 03:45 Ferrous Sulfate (Feosol) 325 mg PO BID [facility] Stop: 04/13/19 08:59 Last Admin: 03/14/19 09:41 Dose: 325 mg Documented by: [facility] ([facility]) [facility] [place]: 04/13/19 08:59 Last Admin: 03/14/19 09:40 Dose: 20 mg Documented by: Dextrose/Sodium Chloride (D5w And Nss) 1,000 mls @ 50 mls/hr IV .Q20H [facility] Stop: 04/13/19 03:45 Last Admin: 03/14/19 04:48 Dose: 50 mls/hr Documented by: Sodium Chloride (Nss) 250 mls @ 15 mls/hr IV .[id number] PRN PRN Reason: For Transfusion Stop: 04/13/19 13:13 Furosemide 40 mg/ Syringe 4 mls @ 4 mls/min IV 1400 [facility] Stop: 03/14/19 18:00 Insulin Aspart (Novolog Flexpen) 0 units SC ACHS [facility] Stop: 04/13/19 07:29 Last Admin: 03/14/19 12:34 Dose: 3 units Documented by: Insulin Glargine (Lantus Solostar Pen) 7 units SC BID [facility]; Protocol Stop: 04/13/19 08:59 Last Admin: 03/14/19 11:13 Dose: 7 units Documented by: Levalbuterol HCl (Xopenex 0.63 Mg/3 Ml Neb) 0.63 mg NEB BIDR [facility] Stop: 04/13/19 06:59 Last Admin: 03/14/19 07:36 Dose: 0.63 mg Documented by: Levalbuterol HCl (Xopenex 0.63 Mg/3 Ml Neb) 0.63 mg INH Q6H PRN PRN Reason: sob/wheezing Stop: 04/13/19 03:45 Levothyroxine Sodium (Synthroid) 112 mcg PO DAILYBB [facility] Stop: 04/13/19 06:29 Last Admin: 03/14/19 06:01 Dose: 112 mcg Documented by: Lorazepam (Ativan) 0.5 mg PO Q6H PRN PRN Reason: Anxiety Stop: 04/13/19 03:45 Miconazole Nitrate (Monistat Derm) 1 appln TOP TID PRN PRN Reason: skin breakdown Stop: 04/13/19 03:45 Miscellaneous Information (Consult Glycemic Management Pharmacy) 1 ea N/A UD PRN PRN Reason: Consult Stop: 04/13/19 03:58 Nitroglycerin (Nitrostat) 0.4 mg SL UD PRN PRN Reason: Chest Pain Stop: 04/13/19 03:45 Ondansetron HCl (Zofran) 4 mg IV Q6H PRN PRN Reason: Nausea Stop: 04/13/19 03:45 Pantoprazole Sodium (Protonix) 40 mg PO BID [facility] Stop: 04/13/19 08:59 Last Admin: 03/14/19 09:42 Dose: 40 mg Documented by: Polyethylene Glycol (Miralax Powder Packet) 17 gm PO DAILY PRN PRN Reason: Constipation Stop: 04/13/19 03:45 Sertraline HCl (Zoloft) 25 mg PO QAM [facility] Stop: 04/13/19 08:59 Last Admin: 03/14/19 09:41 Dose: 25 mg Documented by: Sodium Chloride (Fay Saline Nasal) 1 appln NA BID PRN PRN Reason: dryness (1) Pulmonary embolism Acute cor pulmonale presence: without acute cor pulmonale Chronicity: acute Pulmonary embolism type: unspecified Qualified Code(s): I26.99 - Other pulmonary embolism without acute cor pulmonale
[2019-03-14] MEDS ORDERED: FUROSEMIDE 40 MG in SYRINGE 0 ML IV SCH (14:00)
[2019-03-14] MEDS ORDERED: BACITRACIN INJ 50,000 UNIT VIAL ONE (15:56)
[2019-03-14] MEDS ORDERED: fentaNYL citrate 100 MCG/2 ML VIAL ONE (17:09)
[2019-03-14] MEDS ORDERED: PROPOFOL IV EMULSION 10 MG/ML 20 ML VIAL IV ONE (17:10)
[2019-03-14] MEDS ORDERED: LIDOCAINE HCL 2% 2 ML VIAL/AMP(20MG/ML) INFIL ONE (17:10)
--- NOTE | 2019-03-14 17:13 | Anesthesiology Consultation ---
Date of Service March 14, 2019 Assessment & Plan (1) Encounter for pre-operative examination: Chart Review Chart Review: Acceptable Risk for Surgery and Patient NOT seen in Pre Admission Testing Consults Requested none History Surgery Operation Date: 03/14/19 14:00 Proposed Procedures p Incision and Drainage Extremity, Evacuation Hematoma(Left) - Yaakov Chamberlain DO Height/Weight Height: 5 ft 3 in Weight: 58.967 kg Allergies Allergy/AdvReac Type Severity Reaction Status Date / Time latex Allergy Intermediate Unknown Verified 03/13/19 23:43 codeine Allergy Mild Unknown Verified 03/13/19 23:43 RUSSEL Inhibitors Allergy Unknown SEVERE Verified 03/13/19 23:43 DROP IN SODUIM,CONFUSION, PERSONALITY CHANGE Medications Home Medications Medication Instructions Recorded Confirmed Last Taken Symbicort 2 puff INHALATION BID 07/12/18 03/13/19 03/13/19 amlodipine [Norvasc] 10 mg PO QAM 07/12/18 03/13/19 03/13/19 atenolol [Tenormin] 50 mg PO QAM 07/12/18 03/13/19 03/13/19 atorvastatin [Lipitor] 40 mg PO HS 07/12/18 03/13/19 03/13/19 levothyroxine 112 mcg PO DAILYBB 07/12/18 03/13/19 03/13/19 acetaminophen 500 mg PO BID 11/23/18 03/13/19 03/13/19 acetaminophen 500 mg PO DAILY PRN 11/23/18 03/13/19 Unknown docusate sodium 100 mg PO DAILY PRN 11/23/18 03/13/19 Unknown levalbuterol HCl 0.63 mg NEB BID #90 ml 11/28/18 03/13/19 03/13/19 pantoprazole 40 mg PO BID #60 tab 11/28/18 03/13/19 03/13/19 ferrous sulfate 325 mg PO BID 12/25/18 03/13/19 03/13/19 levalbuterol HCl 0.63 mg INHALATION Q6H PRN 12/25/18 03/13/19 Unknown lorazepam 0.5 mg PO Q6H PRN 12/25/18 03/13/19 03/08/19 miconazole nitrate [Natalya 1 applic TOPICAL TID PRN 12/25/18 03/13/19 Unknown Antifungal] sertraline 25 mg PO QAM 12/25/18 03/13/19 03/13/19 Lantus Solostar U-100 Insulin 22 unit SUBCUT BID 03/10/19 03/14/19 03/13/19 dextran 70-hypromellose (PF) 2 drp OPHTHALMIC (EYE) BID 03/10/19 03/13/19 [Artificial Tears (PF)] furosemide 20 mg PO QAM 03/10/19 03/13/19 03/13/19 sulfamethoxazole-trimethoprim 1 tab PO BID 03/10/19 03/13/19 03/13/19 LAST DAY OF COURSE warfarin 1 mg PO 5XWK 03/10/19 03/13/19 03/13/19 warfarin 2 mg PO 2XWK 03/10/19 03/13/19 03/12/19 Saline Nasal Gel 1 applic TOPICAL BID PRN 03/13/19 03/13/19 Unknown menthol-zinc oxide [Calmoseptine] 1 applic TOPICAL DIRECTED PRN 03/13/19 03/13/19 Unknown Active Medications Generic Name Dose Route Start Last Admin Trade Name Freq PRN Reason Stop Dose Admin Acetaminophen 500 mg 03/14/19 09:00 03/14/19 09:39 Tylenol PO 04/13/19 08:59 500 mg BID [facility] Administration Amlodipine Besylate 10 mg 03/14/19 09:00 03/14/19 09:40 Norvasc PO 04/13/19 08:59 10 mg QAM [facility] Administration Artificial Tears 2 drops 03/14/19 09:00 03/14/19 09:54 Artificial Tears OP 04/13/19 08:59 2 drops BID [facility] Administration Atenolol 50 mg 03/14/19 09:00 03/14/19 09:42 Tenormin PO 04/13/19 08:59 50 mg QAM [facility] Administration Budesonide/Formoterol Fumarate 2 puffs 03/14/19 09:00 03/14/19 09:42 Symbicort 160mcg/4.5mcg INH 04/13/19 08:59 2 puffs BID [facility] Administration Ferrous Sulfate 325 mg 03/14/19 09:00 03/14/19 09:41 Feosol PO 04/13/19 08:59 325 mg BID [facility] Administration Furosemide 20 mg 03/14/19 09:00 03/14/19 09:40 Lasix PO 04/13/19 08:59 20 mg QAM [facility] Administration Dextrose/Sodium Chloride 1,000 mls @ 50 mls/hr 03/14/19 03:46 03/14/19 04:48 D5w And Nss IV 04/13/19 03:45 50 mls/hr .Q20H [facility] Administration Insulin Aspart 0 units 03/14/19 07:30 03/14/19 12:34 Novolog Flexpen SC 04/13/19 07:29 3 units ACHS [facility] Administration Insulin Glargine 7 units 03/14/19 09:00 03/14/19 11:13 Lantus Solostar Pen SC 04/13/19 08:59 7 units BID [facility] Administration Protocol Levalbuterol HCl 0.63 mg 03/14/19 07:00 03/14/19 07:36 Xopenex 0.63 Mg/3 Ml Neb NEB 04/13/19 06:59 0.63 mg BIDR [facility] Administration Levothyroxine Sodium 112 mcg 03/14/19 06:30 03/14/19 06:01 Synthroid PO 04/13/19 06:29 112 mcg DAILYBB [facility] Administration Pantoprazole Sodium 40 mg 03/14/19 09:00 03/14/19 09:42 Protonix PO 04/13/19 08:59 40 mg BID [facility] Administration Sertraline HCl 25 mg 03/14/19 09:00 03/14/19 09:41 Zoloft PO 04/13/19 08:59 25 mg QAM [facility] Administration NPO Date Last Intake of Fluids: 03/13/19 Time Last Intake of Fluids: 22:00 Date Last Intake of Solids: 03/13/19 Time Last Intake of Solids: 22:00 Past Medical History Medical History Diastolic CHF (Chronic) History of breast cancer (Chronic) Hypothyroidism (Chronic) Diabetes (Chronic) HLD (hyperlipidemia) (Chronic) HTN (hypertension) (Chronic) Dementia (Chronic) On supplemental oxygen by nasal cannula (Chronic) COPD (chronic obstructive pulmonary disease) (Chronic) Past Family History Family History Father Coronary heart disease Mother Coronary heart disease Past Surgical History Surgical History History of tubal ligation (Chronic) History of tonsillectomy and adenoidectomy (Chronic) History of bilateral mastectomy (Chronic) History of cataract extraction (Chronic) History of laparoscopic cholecystectomy (Chronic) S/P hip replacement (Chronic) Social History Smoking Status: Unknown if ever smoked tobacco type: cigarettes Hx Alcohol Use: No Hx Substance Use: No substance use type: does not use Physical Exam Vital Signs Last Vital Signs Temp 36.7 C 03/14/19 15:55 Pulse 75 03/14/19 15:55 Resp 18 03/14/19 15:55 BP 142/57 H 03/14/19 15:55 Pulse Ox 97 03/14/19 15:55 Testing Laboratory Results 03/14/19 12:06 03/14/19 06:48 PT 15.9 Seconds (9.0-12.0) H 03/14/19 06:48 INR 1.6 (0.9-1.1) H 03/14/19 06:48 APTT 34.3 Seconds (21.0-31.0) H 03/13/19 22:13 Hemoglobin A1c 7.2 % (4.5-5.6) H 03/14/19 06:48 Blood Type A Negative 03/14/19 13:37 Antibody Screen NEGATIVE 03/14/19 13:37 03/14/19 03/14/19 11:47 09:34 POC Glucose 213 H 195 H
[2019-03-14] MEDS ORDERED: fentaNYL citrate 100 MCG/2 ML VIAL IV PRN (17:14)
[2019-03-14] MEDS ORDERED: ePHEDrine sulfate 50 MG/ML AMP IV PRN (17:14)
[2019-03-14] MEDS ORDERED: ATROPINE SULFATE 0.1 MG/ML 10ML SYR IV PRN (17:14)
--- NOTE | 2019-03-14 17:16 | History & Physical Bridge Note ---
Date of Service March 14, 2019 History & Physical Bridge Note I have examined the patient, reviewed the History & Physical and in the interval since the performance of the History & Physical I have noted the following changes of clinical significance: no changes noted
--- NOTE | 2019-03-14 18:24 | Anesthesiology Progress Note ---
Date of Service March 14, 2019 Anesthesia Post Procedure Vital Signs Vital Signs: Temp Pulse Pulse Pulse Resp BP BP 03/14/19 15:55 36.7 C 75 18 142/57 H 03/14/19 15:37 36.2 C L 74 18 116/63 03/14/19 12:02 36.7 C 75 75 18 120/59 L 03/14/19 07:39 63 18 03/14/19 07:07 36.9 C 86 16 110/54 L 03/14/19 06:24 72 03/14/19 03:48 36.8 C 84 16 148/50 H 03/14/19 03:15 82 20 137/61 03/14/19 03:00 72 20 123/49 L 03/14/19 01:00 72 20 123/49 L 03/13/19 23:28 70 20 125/60 03/13/19 22:23 74 20 138/71 03/13/19 20:23 36.7 C 77 20 149/65 H Pulse Ox 03/14/19 15:55 97 03/14/19 15:37 97 03/14/19 12:02 98 03/14/19 07:39 98 03/14/19 07:07 94 03/14/19 06:24 03/14/19 03:48 89 L 03/14/19 03:15 98 03/14/19 03:00 98 03/14/19 01:00 98 03/13/19 23:28 99 03/13/19 22:23 95 03/13/19 20:23 95 Pain Intensity Left Leg: Pain Intensity: 5 Transfer of Care Handoff Completed per policy Notes Mental Status: alert / awake / arousable Patient Amnestic to Procedure: Yes Nausea / Vomiting: adequately controlled Pain: adequately controlled Airway Patency, RR, SpO2: stable & adequate BP & HR: stable & adequate Hydration State: stable & adequate Anesthetic Complications: no major complications apparent and Pt Satisfied with anesthetic care
--- NOTE | 2019-03-14 18:40 | Post Operative Brief Note ---
Immediate Post Op Note v1 Date of Surgery March 14, 2019 Pre & Post Diagnosis Operation Date: 03/14/19 14:00 Pre-Op Diagnosis: Left Lower Leg Hematoma, coagulopathy Post-Op Diagnosis: Left Lower Leg Hematoma, coagulopathy Procedure Operation Date: 03/14/19 14:00 Actual Procedures p Incision and Drainage severe large hematoma Left Lower Leg, Irrigation and debridement subcutaneous tissue and fascia left lower leg (Left) - Yaakov Chamberlain DO Surgeon Yaakov Chamberlain DO Customer Advisor Specialist Jas Dubon PA-C Estimated Blood Loss 20 Findings Consistent with Post-Op Diagnosis Specimens Evacuated coagulated hematoma 550 cc Drains Hemovac Drain Anesthesia Type General Complications none Disposition Accompanied Patient To Recovery: Yes Disposition: Recovery Room
[2019-03-14] MEDS ORDERED: BISACODYL 10 MG SUPP PR PRN (20:19)
[2019-03-14] MEDS ORDERED: METOCLOPRAMIDE HCL INJ 5 MG/ML 2 ML VIAL IV PRN (20:19)
[2019-03-14] MEDS ORDERED: HYDROmorphone INJ 0.5 MG/0.5 ML SYR IV PRN (20:19)
[2019-03-14] MEDS ORDERED: SODIUM CHLORIDE 0.9% 1000ML 1,000 ML IV SCH (20:19)
[2019-03-14] MEDS ORDERED: MAGNESIUM HYDROXIDE SUSP 30 ML UDC PO PRN (20:19)
[2019-03-14] MEDS ORDERED: NALOXONE HCL 0.4 MG/1 ML VIAL/CARP IV PRN (20:19)
[2019-03-14] MEDS ORDERED: DEXTROSE 50% 50 ML SYRINGE IV PRN (20:45)
[2019-03-14] MEDS ORDERED: GLUCAGON FOR INJ 1 MG VIAL IM PRN (20:45)
[2019-03-14] MEDS ORDERED: GLUCOSE 40% GEL 15 GM TUBE PO PRN (20:45)
[2019-03-14] MEDS ORDERED: GLUCOSE 10 TABS/TUBE PO PRN (20:45)
--- NOTE | 2019-03-14 21:33 | Consultation Report ---
DATE OF CONSULTATION: 03/14/2019 CHIEF COMPLAINT: Left lower ongoing pain and swelling. HISTORY OF PRESENT ILLNESS: The patient is an 88-year-old female who presented to the ED yesterday with severe pain and swelling in her left lower extremity. She has been on Coumadin since December for history of bilateral pulmonary emboli. Her INR in the ER was 5.3. A CT scan of her lower leg revealed a large hematoma approximately 20 x 10 x 6 cm. She was admitted to the hospital by the medical service and an orthopedic consult was asked for. Currently, she is lying in bed, her son is present with her. She is alert and oriented. Upon visualizing her left lower leg, she has obvious swelling, induration, and ecchymosis throughout the entire left lower leg. The large hematoma is visible and palpable. There is concern for skin necrosis. Her dorsalis pedis pulse palpable and she has no signs of compartment syndrome and her toes are neurovascularly intact and passive range of motion of the foot and ankle is without pain. ASSESSMENT: Large hematoma, left lower leg due to elevated INR. PLAN: The above was discussed with the patient and her son. Likely she will need to go to the operating room today for evacuation of hematoma. There is concern for skin necrosis as well as underlying soft tissue damage. This will be discussed with Dr. Chamberlain and an appropriate plan formulated.
[2019-03-14] MEDS: ATORVASTATIN 40 MG TAB PO SCH (21:37)
[2019-03-14] MEDS: DOCUSATE SODIUM 100 MG CAP PO SCH (21:40)
[2019-03-14] MEDS: CEFAZOLIN 1000MG 1,000 MG/7.5 ML SYR IV SCH (21:41)
[2019-03-14] MEDS: SENNA 8.6 MG TAB PO SCH (21:41)
--- NOTE | 2019-03-14 22:59 | Operative Report ---
DATE OF OPERATION: 03/14/2019 PREOPERATIVE DIAGNOSES: 1. Left lower extremity severe hematoma. 2. Coagulopathy. POSTOPERATIVE DIAGNOSES: 1. Left lower extremity severe hematoma. 2. Coagulopathy. PROCEDURES: 1. Left lower extremity incision and drainage hematoma (550 mL). 2. Irrigation and debridement, subcutaneous tissue and fascia, left lower extremity. SURGEON: Yaakov Chamberlain DO EARLY CHILDHOOD SPECIAL EDUCATOR: Jas Dubon PA-C who was present for patient positioning, sterile prep and drape, management of retractors and instruments. He was present through the critical portions of the case including wound closure, application of sterile dressing and transport of the patient to recovery. ANESTHESIA: General LMA with local. SPECIMENS: 550 mL of coagulated hematoma, left lower extremity. DRAINS: Hemovac x2, left lower extremity. COMPLICATIONS: None. BLOOD LOSS: 20 mL. PERTINENT HISTORY: This is an 88-year-old female who was on a supratherapeutic level of anticoagulants and had spontaneous bleeding in her left lower extremity and calf region. She had no specific injury, which she can recall. The patient does have some dementia. The patient presented to [facility], noted to have a large hematoma, admitted to the hospital, Orthopedics was consulted and the patient was then scheduled for surgery as indicated. All potential risks, benefits, complications, alternatives, rehab, potential for incomplete relief of symptoms, need for further surgery, deep venous thrombosis, pulmonary embolism, , persistent pain, swelling, scarring, weakness, neurovascular injury, wound complications, need for further surgery, plastic surgery, skin flap or debridement of the tissue was discussed with the patient and her family. They decided to proceed with procedure as indicated. DESCRIPTION OF PROCEDURE: The patient was taken to the operative suite and placed supine on the Operating Room table. I reviewed consent, after identification of proper operative site, the patient was anesthetized and LMA was placed. Left lower extremity tourniquet was applied high on the thigh over cast padding. Left lower extremity was then sterilely prepped and draped in usual fashion, elevated and tourniquet inflated to 350 mmHg. Next, a 10 blade scalpel was used to make an incision along the medial border of the left lower extremity away from any area of obvious tissue compromise. Approximately, 3.5 cm incision was made. This incision was deepened through the skin and fascia to the level of the hematoma cavity. Next, a small amount of liquid blood was released from the cavity and then using manual digital palpation, the coagulated clot was then extruded and "milked" from the incision site from around the calf and lower extremity to minimize soft tissue incision. After all of the mature and immature clot was then extruded from the left lower extremity via the incision, a small curette and rongeur were then used to debride any devitalized tissue including subcutaneous tissue and fascia. Once this was completed, pulsatile lavage, 3 liters of bacitracin was then used to irrigate hematoma cavity until clear. Next, two 10-Greek Hemovac drains were then placed within the cavity to prevent any further recollection of any clot. Skin was then closed using interrupted nylon sutures. The incision site was then injected with 0.5% Marcaine plain. Next, a sterile compressive dressing was applied overwrapped with an Berhane wrap. The extruded clot was measured of approximately 550 mL and only 20 mL of active bleeding had been encountered. There was no obvious recollection of hematoma after application of the dressing. The tourniquet was released. The patient was awakened and taken to recovery in a stable condition. I attest to the content of the Intraoperative Record and any orders documented therein. Any exception s are noted below.
[2019-03-15 02:16] LABS: Appearance Urine Clear (Clear); Bilirubin Urine Negative (Negative); Blood Urine Negative (Negative); Color Urine Yellow; Glucose Urine UA Negative (Negative); Ketones Urine Negative (Negative); Leukocyte Esterase Urine Negative (Negative); Nitrite Urine Negative (Negative); Protein Urine Negative (Negative); Specific Gravity Urine 1.019 (1.000-1.030); Urobilinogen Urine Negative (Negative)
[2019-03-15] MEDS: CEFAZOLIN 1000MG 1,000 MG/7.5 ML SYR IV SCH (05:44)
[2019-03-15] MEDS: LEVOTHYROXINE SODIUM 112 MCG TABLET PO SCH (05:44)
[2019-03-15 05:50] LABS: Basophils # (auto) 0.04 K/uL (0-0.2); Basophils % (auto) 0.3 %; Eosinophils # (auto) 0.01 K/uL (0-0.5); Eosinophils % (auto) 0.1 %; Hematocrit (blood only) 26.5 % (37-47); Hemoglobin 8.6 g/dL (12.0-16.0); Immature Granulocytes # (auto) 0.03 K/uL (0.00-0.02); Immature Granulocytes % (auto) 0.2 %; Lymphocytes # (auto) 0.95 K/uL (1.2-3.4); Lymphocytes % (auto) 7.5 %; Mean Corpuscular Hgb Conc 32.5 g/dL (32-36); Mean Corpuscular Volume 90.8 fL (80-100); Mean Platelet Volume 11.3 fL (7.4-10.4); Monocytes # (auto) 1.38 K/uL (0.11-0.59); Monocytes % (auto) 10.9 %; Neutrophils # (auto) 10.29 K/uL (1.4-6.5); Platelet Count 183 K/uL (130-400); RDW Coefficient of Variation 15.4 % (11.5-14.5); RDW Standard Deviation 51.1 fL (36.4-46.3); Red Blood Count 2.92 M/uL (4.2-5.4)
[2019-03-15 06:00] LABS: Prothrombin Time 10.5 Seconds (9.0-12.0)
[2019-03-15 06:27] LABS: BUN Creatinine Ratio 19.6 (10-20); Est GFR (African American) 33.3; Est GFR (Non-African American) 28.7; Magnesium 1.6 mg/dl (1.8-2.4)
[2019-03-15] MEDS: LEVALBUTEROL HCL 0.63 MG/3 ML NEB NEB SCH ×2 (07:11→19:57)
[2019-03-15] MEDS: SERTRALINE HCL 50 MG TABLET PO SCH (08:35)
[2019-03-15] MEDS: FERROUS SULFATE 325 MG TAB PO SCH ×2 (08:35→20:59)
[2019-03-15] MEDS: AMLODIPINE BESYLATE 5 MG TAB PO SCH (08:35)
[2019-03-15] MEDS: ATENOLOL 50 MG TABLET PO SCH (08:35)
--- NOTE | 2019-03-15 08:35 | Orthopedic Progress Note ---
Date of Service March 15, 2019 Assessment & Plan (1) Hematoma: 88 yo female stable POD #1 s/p evacuation hematoma left lower leg secondary to hyperanticoagulable state 1. Med management- may resume Coumadin evening of 03/15, will let medicine determine dosing 2. DVT prophylaxis- resume Coumadin this evening 3. Eval lower leg tomorrow, concern for skin necrosis/skin loss 4. D/C planning Subjective Pt resting in bed, having breakfast, alert and oriented, states leg feels better Physical Exam Physical Exam: Dressing and drain intact, toes mobile, NVI Results & Data Vital Signs (Past 12 Hours) Vital Signs Temp Pulse Pulse Resp BP BP Pulse Ox 03/15/19 08:03 36.5 C 75 18 158/65 H 100 03/15/19 07:33 75 03/15/19 07:11 71 18 97 03/15/19 03:00 36.9 C 106 H 20 138/48 L 97 03/15/19 00:37 80 03/14/19 22:56 36.6 C 77 148/58 H 98 03/14/19 22:45 85 03/14/19 22:30 76 03/14/19 22:29 36.6 C 75 18 120/50 L 98 03/14/19 22:27 75 03/14/19 22:00 80 03/14/19 21:45 82 03/14/19 21:30 77 03/14/19 21:15 78 03/14/19 21:00 36.9 C 72 18 127/58 L 99 03/14/19 20:45 70 Laboratory Results 03/15/19 03/15/19 03/15/19 Range/Units 07:38 05:31 05:31 WBC 12.70 H (4.8-10.8) K/uL RBC 2.92 L (4.2-5.4) M/uL Hgb 8.6 L (12.0-16.0) g/dL Hct 26.5 L (37-47) % MCV 90.8 (80-100) fL MCH 29.5 (25-34) pg MCHC 32.5 (32-36) g/dL RDW Std Deviation 51.1 H (36.4-46.3) fL RDW Coeff of Van 15.4 H (11.5-14.5) % Plt Count 183 (130-400) K/uL MPV 11.3 H (7.4-10.4) fL Immature Gran % (Auto) 0.2 % Neut % (Auto) 81.0 % Lymph % (Auto) 7.5 % [place] % (Auto) 10.9 % Eos % (Auto) 0.1 % Baso % (Auto) 0.3 % Immature Gran # (Auto) 0.03 H (0.00-0.02) K/uL Neut # (Auto) 10.29 H (1.4-6.5) K/uL Lymph # (Auto) 0.95 L (1.2-3.4) K/uL [place] # (Auto) 1.38 H (0.11-0.59) K/uL Eos # (Auto) 0.01 (0-0.5) K/uL Baso # (Auto) 0.04 (0-0.2) K/uL RBC Morphology PT (9.0-12.0) Seconds INR (0.9-1.1) Sodium 139 (136-145) mmol/L Potassium 5.0 (3.5-5.1) mmol/L Chloride 98 (98-107) mmol/L Carbon Dioxide 38 H (21-32) mmol/L Anion Gap 3.0 (3-11) BUN 31 H (7-18) mg/dl Creatinine 1.58 H D (0.6-1.2) mg/dl Est Cr Clr Drug Dosing 20.0 ml/min Est GFR ( Amer) 33.3 Est GFR (Non-Af Amer) 28.7 BUN/Creatinine Ratio 19.6 (10-20) Glucose 236 H (70-99) mg/dl POC Glucose 247 H (70-99) Estimat Average Glucose mg/dl Hemoglobin A1c (4.5-5.6) % Calcium 8.0 L (8.5-10.1) mg/dl Magnesium 1.6 L (1.8-2.4) mg/dl Urine Color Urine Appearance (Clear) Urine pH (4.5-7.5) Ur Specific [place] (1.000-1.030) Urine Protein (Negative) Urine Glucose (UA) (Negative) Urine Ketones (Negative) Urine Blood (Negative) Urine Nitrite (Negative) Urine Bilirubin (Negative) Urine Urobilinogen (Negative) Ur Leukocyte Esterase (Negative) Nasal Screen MRSA (PCR) (Negative) Blood Type Antibody Screen Crossmatch 03/15/19 03/15/19 03/14/19 Range/Units 05:31 02:07 20:37 WBC (4.8-10.8) K/uL RBC (4.2-5.4) M/uL Hgb (12.0-16.0) g/dL Hct (37-47) % MCV (80-100) fL MCH (25-34) pg MCHC (32-36) g/dL RDW Std Deviation (36.4-46.3) fL RDW Coeff of Van (11.5-14.5) % Plt Count (130-400) K/uL MPV (7.4-10.4) fL Immature Gran % (Auto) % Neut % (Auto) % Lymph % (Auto) % [place] % (Auto) % Eos % (Auto) % Baso % (Auto) % Immature Gran # (Auto) (0.00-0.02) K/uL Neut # (Auto) (1.4-6.5) K/uL Lymph # (Auto) (1.2-3.4) K/uL [place] # (Auto) (0.11-0.59) K/uL Eos # (Auto) (0-0.5) K/uL Baso # (Auto) (0-0.2) K/uL RBC Morphology PT 10.5 (9.0-12.0) Seconds INR 1.0 (0.9-1.1) Sodium (136-145) mmol/L Potassium (3.5-5.1) mmol/L Chloride (98-107) mmol/L Carbon Dioxide (21-32) mmol/L Anion Gap (3-11) BUN (7-18) mg/dl Creatinine (0.6-1.2) mg/dl Est Cr Clr Drug Dosing ml/min Est GFR ( Amer) Est GFR (Non-Af Amer) BUN/Creatinine Ratio (10-20) Glucose (70-99) mg/dl POC Glucose 224 H (70-99) Estimat Average Glucose mg/dl Hemoglobin A1c (4.5-5.6) % Calcium (8.5-10.1) mg/dl Magnesium (1.8-2.4) mg/dl Urine Color Yellow Urine Appearance Clear (Clear) Urine pH 5.0 (4.5-7.5) Ur Specific [place] 1.019 (1.000-1.030) Urine Protein Negative (Negative) Urine Glucose (UA) Negative (Negative) Urine Ketones Negative (Negative) Urine Blood Negative (Negative) Urine Nitrite Negative (Negative) Urine Bilirubin Negative (Negative) Urine Urobilinogen Negative (Negative) Ur Leukocyte Esterase Negative (Negative) Nasal Screen MRSA (PCR) (Negative) Blood Type Antibody Screen Crossmatch 03/14/19 03/14/19 03/14/19 Range/Units 13:37 12:06 11:47 WBC (4.8-10.8) K/uL RBC (4.2-5.4) M/uL Hgb 6.4 L* (12.0-16.0) g/dL Hct 20.5 L* (37-47) % MCV (80-100) fL MCH (25-34) pg MCHC (32-36) g/dL RDW Std Deviation (36.4-46.3) fL RDW Coeff of Van (11.5-14.5) % Plt Count (130-400) K/uL MPV (7.4-10.4) fL Immature Gran % (Auto) % Neut % (Auto) % Lymph % (Auto) % [place] % (Auto) % Eos % (Auto) % Baso % (Auto) % Immature Gran # (Auto) (0.00-0.02) K/uL Neut # (Auto) (1.4-6.5) K/uL Lymph # (Auto) (1.2-3.4) K/uL [place] # (Auto) (0.11-0.59) K/uL Eos # (Auto) (0-0.5) K/uL Baso # (Auto) (0-0.2) K/uL RBC Morphology PT (9.0-12.0) Seconds INR (0.9-1.1) Sodium (136-145) mmol/L Potassium (3.5-5.1) mmol/L Chloride (98-107) mmol/L Carbon Dioxide (21-32) mmol/L Anion Gap (3-11) BUN (7-18) mg/dl Creatinine (0.6-1.2) mg/dl Est Cr Clr Drug Dosing ml/min Est GFR ( Amer) Est GFR (Non-Af Amer) BUN/Creatinine Ratio (10-20) Glucose (70-99) mg/dl POC Glucose 213 H (70-99) Estimat Average Glucose mg/dl Hemoglobin A1c (4.5-5.6) % Calcium (8.5-10.1) mg/dl Magnesium (1.8-2.4) mg/dl Urine Color Urine Appearance (Clear) Urine pH (4.5-7.5) Ur Specific [place] (1.000-1.030) Urine Protein (Negative) Urine Glucose (UA) (Negative) Urine Ketones (Negative) Urine Blood (Negative) Urine Nitrite (Negative) Urine Bilirubin (Negative) Urine Urobilinogen (Negative) Ur Leukocyte Esterase (Negative) Nasal Screen MRSA (PCR) (Negative) Blood Type A Negative Antibody Screen NEGATIVE Crossmatch See Detail 03/14/19 03/14/19 03/14/19 Range/Units 11:25 09:34 06:48 WBC (4.8-10.8) K/uL RBC (4.2-5.4) M/uL Hgb (12.0-16.0) g/dL Hct (37-47) % MCV (80-100) fL MCH (25-34) pg MCHC (32-36) g/dL RDW Std Deviation (36.4-46.3) fL RDW Coeff of Van (11.5-14.5) % Plt Count (130-400) K/uL MPV (7.4-10.4) fL Immature Gran % (Auto) % Neut % (Auto) % Lymph % (Auto) % [place] % (Auto) % Eos % (Auto) % Baso % (Auto) % Immature Gran # (Auto) (0.00-0.02) K/uL Neut # (Auto) (1.4-6.5) K/uL Lymph # (Auto) (1.2-3.4) K/uL [place] # (Auto) (0.11-0.59) K/uL Eos # (Auto) (0-0.5) K/uL Baso # (Auto) (0-0.2) K/uL RBC Morphology PT (9.0-12.0) Seconds INR (0.9-1.1) Sodium (136-145) mmol/L Potassium (3.5-5.1) mmol/L Chloride (98-107) mmol/L Carbon Dioxide (21-32) mmol/L Anion Gap (3-11) BUN (7-18) mg/dl Creatinine (0.6-1.2) mg/dl Est Cr Clr Drug Dosing ml/min Est GFR ( Amer) Est GFR (Non-Af Amer) BUN/Creatinine Ratio (10-20) Glucose (70-99) mg/dl POC Glucose 195 H (70-99) Estimat Average Glucose 160 mg/dl Hemoglobin A1c 7.2 H (4.5-5.6) % Calcium (8.5-10.1) mg/dl Magnesium (1.8-2.4) mg/dl Urine Color Urine Appearance (Clear) Urine pH (4.5-7.5) Ur Specific [place] (1.000-1.030) Urine Protein (Negative) Urine Glucose (UA) (Negative) Urine Ketones (Negative) Urine Blood (Negative) Urine Nitrite (Negative) Urine Bilirubin (Negative) Urine Urobilinogen (Negative) Ur Leukocyte Esterase (Negative) Nasal Screen MRSA (PCR) Negative (Negative) Blood Type Antibody Screen Crossmatch 03/14/19 03/14/19 Range/Units 06:48 06:48 WBC (4.8-10.8) K/uL RBC (4.2-5.4) M/uL Hgb (12.0-16.0) g/dL Hct (37-47) % MCV (80-100) fL MCH (25-34) pg MCHC (32-36) g/dL RDW Std Deviation (36.4-46.3) fL RDW Coeff of Van (11.5-14.5) % Plt Count (130-400) K/uL MPV (7.4-10.4) fL Immature Gran % (Auto) % Neut % (Auto) % Lymph % (Auto) % [place] % (Auto) % Eos % (Auto) % Baso % (Auto) % Immature Gran # (Auto) (0.00-0.02) K/uL Neut # (Auto) (1.4-6.5) K/uL Lymph # (Auto) (1.2-3.4) K/uL [place] # (Auto) (0.11-0.59) K/uL Eos # (Auto) (0-0.5) K/uL Baso # (Auto) (0-0.2) K/uL RBC Morphology Unremarkable PT (9.0-12.0) Seconds INR (0.9-1.1) Sodium 139 (136-145) mmol/L Potassium 5.1 (3.5-5.1) mmol/L Chloride 96 L (98-107) mmol/L Carbon Dioxide 36 H (21-32) mmol/L Anion Gap 6.0 (3-11) BUN 22 H (7-18) mg/dl Creatinine 1.28 H (0.6-1.2) mg/dl Est Cr Clr Drug Dosing 24.6 ml/min Est GFR ( Amer) 42.9 Est GFR (Non-Af Amer) 37.0 BUN/Creatinine Ratio 16.8 (10-20) Glucose 135 H (70-99) mg/dl POC Glucose (70-99) Estimat Average Glucose mg/dl Hemoglobin A1c (4.5-5.6) % Calcium 8.2 L (8.5-10.1) mg/dl Magnesium 1.7 L (1.8-2.4) mg/dl Urine Color Urine Appearance (Clear) Urine pH (4.5-7.5) Ur Specific [place] (1.000-1.030) Urine Protein (Negative) Urine Glucose (UA) (Negative) Urine Ketones (Negative) Urine Blood (Negative) Urine Nitrite (Negative) Urine Bilirubin (Negative) Urine Urobilinogen (Negative) Ur Leukocyte Esterase (Negative) Nasal Screen MRSA (PCR) (Negative) Blood Type Antibody Screen Crossmatch
[2019-03-15] MEDS: FUROSEMIDE 20 MG TAB PO SCH (08:36)
[2019-03-15] MEDS: PANTOprazole 40 MG TAB PO SCH ×2 (08:36→21:00)
[2019-03-15] MEDS: MULTIVITAMIN TAB PO SCH (08:36)
[2019-03-15] MEDS: DOCUSATE SODIUM 100 MG CAP PO SCH ×2 (08:36→20:59)
[2019-03-15] MEDS: ARTIFICIAL TEARS OP SCH ×2 (08:37→20:59)
[2019-03-15] MEDS: INSULIN ASPART 100 UNITS/ML 3 ML PEN SC SCH ×4 (08:39→21:56)
[2019-03-15] MEDS: ACETAMINOPHEN 500 MG TAB PO SCH ×2 (08:41→21:01)
[2019-03-15] MEDS: BUDESONIDE/FORMOTEROL FUMARATE 160/4.5 60 PUFFS/INHALER INH SCH ×2 (08:41→21:00)
[2019-03-15] MEDS ORDERED: INSULIN GLARGINE SOLOSTAR 100 UNITS/ML 3 ML PEN SC SCH (09:00)
[2019-03-15] MEDS: ACETAMINOPHEN 325 MG TAB PO PRN (11:28)
--- NOTE | 2019-03-15 13:50 | Pharmacy Report ---
Pharmacy Glycemic Short Note 2 - Date of Service March 15, 2019 - Glycemic Short BSG Results (Last 24 hours): 03/14/19 03/15/19 03/15/19 20:37 05:31 07:38 Glucose 236 H POC Glucose 224 H 247 H 03/15/19 12:16 Glucose POC Glucose 112 H OUTPATIENT ANTIDIABETIC REGIMEN: * Lantus 22 units SQ BID ASSESSMENT: * 88yo T2DM female with adequate outpatient control per A1c * Outpatient regimen is all basal insulin, therefore is probably covering some prandial needs as well. * Will convert outpatient dosing of 44 units/day to SQ basal bolus insulin regimen split 50% basal: 50% prandial to prevent hypo when NPO. * Equates to Lantus 11 units SQ BID, NovoLog per CF = 35, CR = 12 * Pt was NPO yesterday for evacuation hematoma left lower leg- insulin dosing empirically reduced. * AM fasting BSG significantly elevated today at 247 mg/dl d/t reduced insulin dosing yesterday. Will resume dosing above but give Lantus as daily instead of BID for quicker resolution of hyperglycemia. PLAN FOR INPATIENT GLYCEMIC CONTROL: * Basal insulin * Lantus 22 units SQ daily in AM * Bolus insulin * NovoLog per scale ACHS or Q6hrs while NPO * Goal Range: Low 110 mg/dL - High 140 mg/dL * Correction Factor: 35 mg/dL/unit * Nutritional / Prandial insulin per carb ratio of 1 unit per 15 grams CHO consumed
[2019-03-15] MEDS: CARBOHYDRATES FOR HYPOGLYCEMIA PO PRN ×2 (17:54→18:09)
[2019-03-15] MEDS: D5W AND NSS 1,000 ML IV SCH (20:54)
[2019-03-15] MEDS: ATORVASTATIN 40 MG TAB PO SCH (21:00)
[2019-03-15] MEDS: SENNA 8.6 MG TAB PO SCH (21:00)
[2019-03-15] MEDS ORDERED: D5W AND NSS 1,000 ML IV SCH (21:15)
[2019-03-16 05:23] LABS: Hematocrit (blood only) 27.1 % (37-47); Hemoglobin 8.6 g/dL (12.0-16.0); Mean Corpuscular Hgb Conc 31.7 g/dL (32-36); Mean Corpuscular Volume 92.5 fL (80-100); Mean Platelet Volume 11.3 fL (7.4-10.4); Platelet Count 212 K/uL (130-400); RDW Coefficient of Variation 15.4 % (11.5-14.5); RDW Standard Deviation 52.3 fL (36.4-46.3); Red Blood Count 2.93 M/uL (4.2-5.4); White Blood Count 13.34 K/uL (4.8-10.8)
[2019-03-16 05:32] LABS: Prothrombin Time 9.9 Seconds (9.0-12.0)
[2019-03-16] MEDS: LORazepam 0.5 MG TAB PO PRN (05:33)
[2019-03-16] MEDS: LEVOTHYROXINE SODIUM 112 MCG TABLET PO SCH (05:33)
[2019-03-16 05:49] LABS: BUN Creatinine Ratio 21.4 (10-20); Calcium 7.7 mg/dl (8.5-10.1); Creatinine Clr Calc Pharmacy 26.1 ml/min; Est GFR (African American) 45.9; Est GFR (Non-African American) 39.6; Potassium 4.3 mmol/L (3.5-5.1)
[2019-03-16] MEDS: LEVALBUTEROL HCL 0.63 MG/3 ML NEB NEB SCH ×2 (07:22→19:19)
[2019-03-16] MEDS ORDERED: INSULIN GLARGINE SOLOSTAR 100 UNITS/ML 3 ML PEN SC SCH (09:00)
[2019-03-16] MEDS: INSULIN ASPART 100 UNITS/ML 3 ML PEN SC SCH ×4 (09:12→21:04)
[2019-03-16] MEDS: ARTIFICIAL TEARS OP SCH ×2 (09:32→20:24)
[2019-03-16] MEDS: DOCUSATE SODIUM 100 MG CAP PO SCH ×2 (09:33→20:23)
[2019-03-16] MEDS: FUROSEMIDE 20 MG TAB PO SCH (09:33)
[2019-03-16] MEDS: FERROUS SULFATE 325 MG TAB PO SCH ×2 (09:33→20:23)
[2019-03-16] MEDS: MULTIVITAMIN TAB PO SCH (09:34)
[2019-03-16] MEDS: AMLODIPINE BESYLATE 5 MG TAB PO SCH (09:35)
[2019-03-16] MEDS: PANTOprazole 40 MG TAB PO SCH ×2 (09:35→20:23)
[2019-03-16] MEDS: BUDESONIDE/FORMOTEROL FUMARATE 160/4.5 60 PUFFS/INHALER INH SCH ×2 (09:35→20:24)
[2019-03-16] MEDS: ACETAMINOPHEN 500 MG TAB PO SCH ×2 (09:36→20:24)
[2019-03-16] MEDS: ATENOLOL 50 MG TABLET PO SCH (09:36)
[2019-03-16] MEDS: SERTRALINE HCL 50 MG TABLET PO SCH (09:37)
--- NOTE | 2019-03-16 13:00 | Orthopedic Progress Note ---
Date of Service March 16, 2019 Assessment & Plan (1) Hematoma: 88 yo female stable POD #2 s/p evacuation hematoma left lower leg secondary to hyperanticoagulable state 1. Med management- may resume Coumadin evening of 03/15, will let medicine determine dosing 2. DVT prophylaxis- resume Coumadin this evening 3. Wounds appear to be healing well. If she continues to improve, will consider weightbearing on the LLE tomorrow. 4. D/C planning--will follow up with Dr. Chamberlain's clinic in 2-3 weeks post op for suture removal. Subjective Doing well today. The left leg is continuing to feel better. No complaints of the left leg or of any significant pain. Physical Exam Constitutional: WD/WN, vitals as above no acute distress Musculoskeletal: Left lower leg: No erythema. Incision is well approximated. The hemovac was in place but removed today. Only 10 cc of drainage from the drain. No fluctuance noted of the left lower leg. Psychiatric: Orientation: alert and oriented x 3 Results & Data Vital Signs (Past 12 Hours) Vital Signs Temp Pulse Pulse Resp BP Pulse Ox 03/16/19 07:40 36.3 C L 68 15 132/48 L 100 03/16/19 07:22 66 16 100
--- NOTE | 2019-03-16 13:02 | Pharmacy Report ---
Pharmacy Glycemic Short Note 2 - Date of Service March 16, 2019 - Glycemic Short BSG Results (Last 24 hours): 03/15/19 03/15/19 03/15/19 17:51 17:52 18:05 Glucose POC Glucose 40 L* 40 L* 63 L* 03/15/19 03/15/19 03/15/19 18:20 20:36 20:55 Glucose POC Glucose 97 61 L* 79 03/15/19 03/16/19 03/16/19 23:57 03:06 04:47 Glucose 125 H POC Glucose 109 H 140 H 03/16/19 03/16/19 03/16/19 08:16 12:14 12:18 Glucose POC Glucose 209 H 355 H* 372 H* OUTPATIENT ANTIDIABETIC REGIMEN: * Lantus 22 units SQ BID ASSESSMENT: * 88yo F with brittle diabetes. She had BSGs in the 40s yesterday at dinner. D5 gtt was started. BSGs this afternoon are now in the upper 300s. D/w attending, OK to d/c d5 gtt at this time. Diet continues. Lantus was decreased this AM to avoid any further hypoglycemia. PLAN FOR INPATIENT GLYCEMIC CONTROL: * Basal insulin * Lantus 16 units x1 this AM * Bolus insulin * NovoLog per scale ACHS or Q6hrs while NPO * Goal Range: Low 110 mg/dL - High 140 mg/dL * Correction Factor: 35 mg/dL/unit * Nutritional / Prandial insulin per carb ratio of 1 unit per 15 grams CHO consumed
--- NOTE | 2019-03-16 16:45 | Hospitalist Progress Note ---
Date of Service Date of service March 15, 2019 March 16, 2019 Assessment & Plan (1) Hematoma: A huge hematoma left calf likely secondary to trauma not documented Ortho evaluation pending May need evacuation of the hematoma POD #1 status post evacuation of left calf hematoma Appreciate Ortho input and recommendation (2) Acute blood loss anemia: Hemoglobin dropped to below 7 likely secondary to ongoing bleeding INR has been reversed to decrease bleeding Will get 2 units of blood transfusion We will monitor H&H-8.6 on 03/15 (3) Diabetes: Has been on insulin Recently noted to have hypoglycemia on 2 separate occasions required emergency room visit Pharmacy consult Likely to need decreasing the basal insulin (4) Hypoglycemia: As above (5) Paroxysmal A-fib: Rate is controlled and in sinus rhythm Continue current medication Discussed with the son the risk of anticoagulation at this point Will likely to discontinue Coumadin on discharge (6) Pulmonary embolism: History of tiny pulmonary embolism without evidence of DVT Has been on Coumadin Risk of bleeding seems to be high Vascular surgery consulted for possible IVC filter Discussed with the son-we will decide on Coumadin therapy (7) Dementia: No acute delirium DVT prophylaxis SCDs CODE STATUS DNR/DNI Disposition Awated Subjective 03/14 The patient was seen and examined in medical telemetry unit in presence of the son She complains to have some left leg pain, denies any other symptoms She does not have any shortness of breath and/or chest pain 03/15 The patient was seen and examined in medical He is a status post left calf incision and drainage of the hematoma Has been feeling a lot better Denies any other symptoms Review of Systems Review of Systems: All systems reviewed and are unremarkable except as noted below Constitutional: + fatigue and + weakness Gastrointestinal: + problem reported (Epigastric discomfort) Musculoskeletal: + back pain and + problem reported (Left leg pain) Physical Exam Physical Exam: Generally weak but no apparent distress at rest Constitutional: + ill appearing; no acute distress Eyes: PERRL, conjunctivae normal, anicteric sclerae ENMT: external ear and nose normal, oropharynx normal Neck: trachea midline, no thyromegaly Respiratory: normal respiratory effort; no respiratory distress Auscultation: + diminished lung sounds Cardiovascular: Rate/Rhythm: regular rate and regular rhythm Extremities: + edema (Bilaterally more on the left than the right) Gastrointestinal (Abdomen): Inspection/Auscultation: abdomen normal to inspection Percussion/Palpation: + abdomen tender (Mildly tender in the epigastrium) Musculoskeletal: Extremities: + limited ROM of extremities (Left lower extremity movement is limited with pain due to a huge hematoma involving the left calf) Lymphatic: no cervical or axillary lymphadenopathy Results & Data Vital Signs (Past 12 Hours) Vital Signs Temp Pulse Pulse Resp BP Pulse Ox 03/16/19 14:56 36.6 C 77 19 129/52 L 98 03/16/19 07:40 36.3 C L 68 15 132/48 L 100 03/16/19 07:22 66 16 100 (1) Pulmonary embolism Acute cor pulmonale presence: without acute cor pulmonale Chronicity: acute Pulmonary embolism type: unspecified Qualified Code(s): I26.99 - Other pulmonary embolism without acute cor pulmonale
--- NOTE | 2019-03-16 16:50 | Hospitalist Progress Note ---
Date of Service March 16, 2019 Assessment & Plan (1) Hematoma: A huge hematoma left calf likely secondary to Coumadin administration with supratherapeutic INR Ortho evaluation pending May need evacuation of the hematoma POD #2 status post evacuation of left calf hematoma Appreciate Ortho input and recommendation Drainage has been discontinued Leg wounds are healing nicely as per Ortho We will get PT and OT evaluation (2) Acute blood loss anemia: Hemoglobin dropped to below 7 likely secondary to ongoing bleeding INR has been reversed to decrease bleeding Will get 2 units of blood transfusion We will monitor H&H-8.6 on 03/15 and on 03/16 (3) Diabetes: Has been on insulin Recently noted to have hypoglycemia on 2 separate occasions required emergency room visit Pharmacy consult Likely to need decreasing the basal insulin (4) Hypoglycemia: As above (5) Paroxysmal A-fib: Rate is controlled and in sinus rhythm Continue current medication Discussed with the son the risk of anticoagulation at this point Will likely to discontinue Coumadin on discharge (6) Pulmonary embolism: History of tiny pulmonary embolism without evidence of DVT Has been on Coumadin Risk of bleeding seems to be high Vascular surgery consulted for possible IVC filter Discussed with the son-we will decide on Coumadin therapy Discussed with son again today-will restart Coumadin (7) Dementia: No acute delirium DVT prophylaxis SCDs CODE STATUS DNR/DNI Disposition Awated PT OT evaluation Possible discharge in a day or 2 Subjective 03/14 The patient was seen and examined in medical telemetry unit in presence of the son She complains to have some left leg pain, denies any other symptoms She does not have any shortness of breath and/or chest pain 03/15 The patient was seen and examined in medical He is a status post left calf incision and drainage of the hematoma Has been feeling a lot better Denies any other symptoms 03/16 Patient was seen and examined in presence of the son She has been feeling a lot better following hematoma evacuation Generally weak but denies any other significant symptoms Review of Systems Review of Systems: All systems reviewed and are unremarkable except as noted below Constitutional: + fatigue and + weakness Cardiovascular: no chest pain Gastrointestinal: + problem reported (Epigastric discomfort) Musculoskeletal: + back pain and + problem reported (Left leg pain) Neurologic: + generalized weakness Physical Exam Physical Exam: No apparent distress at rest Constitutional: + ill appearing; no acute distress Eyes: PERRL, conjunctivae normal, anicteric sclerae ENMT: external ear and nose normal, oropharynx normal Neck: trachea midline, no thyromegaly Respiratory: normal respiratory effort; no respiratory distress Auscultation: + diminished lung sounds Cardiovascular: Rate/Rhythm: regular rate and regular rhythm Extremities: + edema (Bilaterally more on the left than the right) Gastrointestinal (Abdomen): Inspection/Auscultation: abdomen normal to inspection Percussion/Palpation: + abdomen tender (Mildly tender in the epigastrium) Musculoskeletal: Extremities: + limited ROM of extremities (Left lower extremity movement is limited with pain due to a huge hematoma involving the left calf) Neurologic: moves all extremities; no focal motor deficits Generally weak Lymphatic: no cervical or axillary lymphadenopathy Results & Data Vital Signs (Past 12 Hours) Vital Signs Temp Pulse Pulse Resp BP Pulse Ox 03/16/19 14:56 36.6 C 77 19 129/52 L 98 03/16/19 07:40 36.3 C L 68 15 132/48 L 100 03/16/19 07:22 66 16 100 Laboratory Results Short CBC 03/16/19 Range/Units 04:47 WBC 13.34 H (4.8-10.8) K/uL Hgb 8.6 L (12.0-16.0) g/dL Hct 27.1 L (37-47) % Plt Count 212 (130-400) K/uL BMP 03/16/19 04:47 Sodium 142 Potassium 4.3 Chloride 99 Carbon Dioxide 38 H BUN 26 H Creatinine 1.21 H D Glucose 125 H Calcium 7.7 L Medications Administered Current Inpatient Medications Acetaminophen (Tylenol) 500 mg PO BID [facility] Stop: 04/13/19 08:59 Last Admin: 03/16/19 09:36 Dose: 500 mg Documented by: Acetaminophen (Tylenol) 650 mg PO Q4H PRN PRN Reason: Pain or Fever Stop: 04/13/19 03:45 Last Admin: 03/15/19 11:28 Dose: 650 mg Documented by: Amlodipine Besylate (Norvasc) 10 mg PO QAM [facility] Stop: 04/13/19 08:59 Last Admin: 03/16/19 09:35 Dose: 10 mg Documented by: Artificial Tears (Artificial Tears) 2 drops OP BID [facility] Stop: 04/13/19 08:59 Last Admin: 03/16/19 09:32 Dose: 2 drops Documented by: Atenolol (Tenormin) 50 mg PO QAM KAIT Stop: 04/13/19 08:59 Last Admin: 03/16/19 09:36 Dose: 50 mg Documented by: Atorvastatin Calcium (Lipitor) 40 mg PO HS KAIT Stop: 04/13/19 20:59 Last Admin: 03/15/19 21:00 Dose: 40 mg Documented by: Bisacodyl (Dulcolax) 10 mg MA DAILY PRN PRN Reason: Constipation Stop: 04/13/19 20:18 Budesonide/Formoterol Fumarate (Symbicort 160mcg/4.5mcg) 2 puffs INH BID KAIT Stop: 04/13/19 08:59 Last Admin: 03/16/19 09:35 Dose: 2 puffs Documented by: Calamine/Phenol (Calmoseptine) 1 appln EXT PRN PRN PRN Reason: .IRRITATION Stop: 04/13/19 03:45 Dextrose (Dextrose 50%) 25 - 50 ml IV UD PRN; Protocol PRN Reason: Hypoglycemia Protocol Stop: 04/13/19 20:44 Docusate Sodium (Colace) 100 mg PO DAILY PRN PRN Reason: Constipation Stop: 04/13/19 03:45 Docusate Sodium (Colace) 100 mg PO BID KAIT Stop: 04/13/19 20:59 Last Admin: 03/16/19 09:33 Dose: 100 mg Documented by: Ferrous Sulfate (Feosol) 325 mg PO BID KAIT Stop: 04/13/19 08:59 Last Admin: 03/16/19 09:33 Dose: 325 mg Documented by: Furosemide (Lasix) 20 mg PO QAM KAIT Stop: 04/13/19 08:59 Last Admin: 03/16/19 09:33 Dose: 20 mg Documented by: Glucagon (Glucagen) 1 mg IM UD PRN; Protocol PRN Reason: Hypoglycemia Protocol Stop: 04/13/19 20:44 Glucose (Glucose 40%) 15 - 30 gm PO UD PRN; Protocol PRN Reason: Hypoglycemia Protocol Stop: 04/13/19 20:44 Last Admin: 03/15/19 20:43 Dose: 15 gm Documented by: Glucose (Dex4 Glucose) 4 - 8 tabs PO UD PRN; Protocol PRN Reason: Hypoglycemia Protocol Stop: 04/13/19 20:44 Hydromorphone HCl (Dilaudid) 0.5 mg IV Q4H PRN PRN Reason: Pain Stop: 03/28/19 20:18 Sodium Chloride (Nss) 250 mls @ 15 mls/hr IV .[id number] PRN PRN Reason: For Transfusion Stop: 04/13/19 13:13 Insulin Aspart (Novolog Flexpen) 0 units SC ACHS [facility] Stop: 04/13/19 07:29 Last Admin: 03/16/19 13:03 Dose: 8 units Documented by: Insulin Glargine (Lantus Solostar Pen) 16 units SC DAILY [facility]; Protocol Stop: 04/15/19 08:59 Last Admin: 03/16/19 09:15 Dose: 16 units Documented by: Levalbuterol HCl (Xopenex 0.63 Mg/3 Ml Neb) 0.63 mg NEB BIDR [facility] Stop: 04/13/19 06:59 Last Admin: 03/16/19 07:22 Dose: 0.63 mg Documented by: Levalbuterol HCl (Xopenex 0.63 Mg/3 Ml Neb) 0.63 mg INH Q6H PRN PRN Reason: sob/wheezing Stop: 04/13/19 03:45 Levothyroxine Sodium (Synthroid) 112 mcg PO DAILYBB [facility] Stop: 04/13/19 06:29 Last Admin: 03/16/19 05:33 Dose: 112 mcg Documented by: Lorazepam (Ativan) 0.5 mg PO Q6H PRN PRN Reason: Anxiety Stop: 04/13/19 03:45 Last Admin: 03/16/19 05:33 Dose: 0.5 mg Documented by: Magnesium Hydroxide (Milk Of Magnesia) 30 ml PO Q6H PRN PRN Reason: Constipation Stop: 04/13/19 20:18 Metoclopramide HCl (Reglan) 10 mg IV Q6H PRN PRN Reason: Nausea And Vomiting Stop: 04/13/19 20:18 Miconazole Nitrate (Monistat Derm) 1 appln TOP TID PRN PRN Reason: skin breakdown Stop: 04/13/19 03:45 Miscellaneous (Carbohydrates For Hypoglycemia) 15 - 30 gm PO UD PRN PRN Reason: Hypoglycemia Treatment Stop: 04/13/19 20:44 Last Admin: 03/15/19 18:09 Dose: 15 gm Documented by: Miscellaneous Information (Consult Glycemic Management Pharmacy) 1 ea N/A UD PRN PRN Reason: Consult Stop: 04/13/19 03:58 Multivitamins (Multivitamin Tab) 1 tab PO QAM [facility] Stop: 04/14/19 08:59 Last Admin: 03/16/19 09:34 Dose: 1 tab Documented by: Naloxone HCl (Narcan) 0.1 mg IV Q5M PRN PRN Reason: Oversedation/Resp Depression Stop: 04/13/19 20:18 Nitroglycerin (Nitrostat) 0.4 mg SL UD PRN PRN Reason: Chest Pain Stop: 04/13/19 03:45 Ondansetron HCl (Zofran) 4 mg IV Q6H PRN PRN Reason: Nausea Stop: 04/13/19 03:45 Pantoprazole Sodium (Protonix) 40 mg PO BID [facility] Stop: 04/13/19 08:59 Last Admin: 03/16/19 09:35 Dose: 40 mg Documented by: Polyethylene Glycol (Miralax Powder Packet) 17 gm PO DAILY PRN PRN Reason: Constipation Stop: 04/13/19 03:45 Sennosides (Senokot) 17.2 mg PO HS [facility] Stop: 04/13/19 20:59 Last Admin: 03/15/19 21:00 Dose: Not Given Documented by: Sertraline HCl (Zoloft) 25 mg PO QAM [facility] Stop: 04/13/19 08:59 Last Admin: 03/16/19 09:37 Dose: 25 mg Documented by: Sodium Chloride ([place] Saline Nasal) 1 appln NA BID PRN PRN Reason: dryness (1) Pulmonary embolism Acute cor pulmonale presence: without acute cor pulmonale Chronicity: acute Pulmonary embolism type: unspecified Qualified Code(s): I26.99 - Other pulmonary embolism without acute cor pulmonale
[2019-03-16] MEDS: ATORVASTATIN 40 MG TAB PO SCH (20:23)
[2019-03-16] MEDS: SENNA 8.6 MG TAB PO SCH (20:24)
[2019-03-17] MEDS: LEVOTHYROXINE SODIUM 112 MCG TABLET PO SCH (05:29)
[2019-03-17 06:33] LABS: Basophils # (auto) 0.03 K/uL (0-0.2); Basophils % (auto) 0.3 %; Eosinophils # (auto) 0.26 K/uL (0-0.5); Eosinophils % (auto) 2.5 %; Hematocrit (blood only) 27.9 % (37-47); Hemoglobin 8.6 g/dL (12.0-16.0); Immature Granulocytes # (auto) 0.03 K/uL (0.00-0.02); Immature Granulocytes % (auto) 0.3 %; Lymphocytes # (auto) 0.88 K/uL (1.2-3.4); Lymphocytes % (auto) 8.5 %; Mean Corpuscular Hgb Conc 30.8 g/dL (32-36); Mean Corpuscular Volume 95.5 fL (80-100); Mean Platelet Volume 10.9 fL (7.4-10.4); Monocytes # (auto) 0.91 K/uL (0.11-0.59); Monocytes % (auto) 8.8 %; Neutrophils # (auto) 8.25 K/uL (1.4-6.5); Neutrophils % (auto) 79.6 %; Platelet Count 257 K/uL (130-400); RDW Coefficient of Variation 15.2 % (11.5-14.5); RDW Standard Deviation 52.4 fL (36.4-46.3); Red Blood Count 2.92 M/uL (4.2-5.4); White Blood Count 10.36 K/uL (4.8-10.8)
[2019-03-17 06:43] LABS: INR 0.9 (0.9-1.1); Prothrombin Time 9.7 Seconds (9.0-12.0)
[2019-03-17 07:01] LABS: BUN Creatinine Ratio 21.4 (10-20); Calcium 8.2 mg/dl (8.5-10.1); Creatinine Clr Calc Pharmacy 33.9 ml/min; Est GFR (African American) 63.2; Est GFR (Non-African American) 54.5
[2019-03-17] MEDS: LEVALBUTEROL HCL 0.63 MG/3 ML NEB NEB SCH ×2 (07:09→18:55)
[2019-03-17] MEDS: INSULIN ASPART 100 UNITS/ML 3 ML PEN SC SCH ×4 (09:17→20:45)
[2019-03-17] MEDS: DOCUSATE SODIUM 100 MG CAP PO SCH ×2 (09:18→20:42)
[2019-03-17] MEDS: ARTIFICIAL TEARS OP SCH ×2 (09:18→20:46)
[2019-03-17] MEDS: INSULIN GLARGINE SOLOSTAR 100 UNITS/ML 3 ML PEN SC SCH (09:18)
[2019-03-17] MEDS: FUROSEMIDE 20 MG TAB PO SCH (09:19)
[2019-03-17] MEDS: MULTIVITAMIN TAB PO SCH (09:19)
[2019-03-17] MEDS: FERROUS SULFATE 325 MG TAB PO SCH ×2 (09:19→20:45)
[2019-03-17] MEDS: BUDESONIDE/FORMOTEROL FUMARATE 160/4.5 60 PUFFS/INHALER INH SCH ×2 (09:20→20:45)
[2019-03-17] MEDS: PANTOprazole 40 MG TAB PO SCH ×2 (09:20→20:45)
[2019-03-17] MEDS: AMLODIPINE BESYLATE 5 MG TAB PO SCH (09:20)
[2019-03-17] MEDS: ATENOLOL 50 MG TABLET PO SCH (09:23)
[2019-03-17] MEDS: SERTRALINE HCL 50 MG TABLET PO SCH (09:24)
[2019-03-17] MEDS: ACETAMINOPHEN 500 MG TAB PO SCH ×2 (09:28→20:55)
[2019-03-17] MEDS: ACETAMINOPHEN 325 MG TAB PO PRN (13:20)
--- NOTE | 2019-03-17 13:53 | Palliative Care Consultation ---
Date of Consultation March 17, 2019 Assessment & Plan (1) Goals of care, counseling/discussion: -88 year old female patient with PMH bilateral PEs in December 2018, advanced dementia, COPD with chronic respiratory failure on chronic 3.5LNC, CHF, breast CA, hypothyroidism, DM HLD, htn, CKD stage III, paroxysmal afib, and others, presented to the hospital with sudden onset left leg swelling and pain. Found to have large hematoma which was surgically evacuated a couple days ago. Patient was here last week of December 2018 for PEs and was sent back to [facility]. She was also here in ED a few days prior to arrival with episodes of hypoglycemia. Given patient's multiple comorbidities, family was inquiring about hospice care at the [facility]. Palliative care consulted. -Met with patient and her son/POA, Jose, in room 351. Patient is up in chair, pleasantly confused. Oriented to person only. -Jose states that they just want patient to be comfortable and not have to continue coming back and forth to hospital. They are interested in hospice care. -We discussed that with patient's advanced dementia, advanced COPD and chronic respiratory failure, recent PEs, hypoglycemia, and other comorbidities, patient's prognosis could be six months or less and therefore would likely q ualify for hospice care. Especially now that patient's mobility will be greatly affected. -Case management already in contact with [facility] and has made referral to [facility]. -POLST form completed with patient's son as follows: DNR, comfort measures only, abx with comfort as the goal, and trial period of IVF but no feeding tube. -Please contact palliative care team with any further questions/concerns. (2) Hematoma: (3) Chronic respiratory failure: (4) Dementia: History of Present Illness Reason for Consultation: Goals of care Requesting Physician: Dr. Preston Attending Physician: Miguel Angel Preston MD History of Present Illness This 88 year old female patient with PMH bilateral PEs in December 2018, advanced dementia, COPD with chronic respiratory failure on chronic 3.5LNC, CHF, breast CA, hypothyroidism, DM HLD, htn, CKD stage III, paroxysmal afib, and others, presented to the hospital with sudden onset left leg swelling and pain. Found to have large hematoma which was surgically evacuated a couple days ago. Patient was here last week of December 2018 for PEs and was sent back to [facility]. She was also here in ED a few days prior to arrival with episodes of hypoglycemia. Given patient's multiple comorbidities, family was inquiring about hospice care at the [facility]. Palliative care consulted. Thank you kindly for this consult. Palliative care team will follow as needed. Allergies Allergy/AdvReac Type Severity Reaction Status Date / Time latex Allergy Intermediate Unknown Verified 03/13/19 23:43 codeine Allergy Mild Unknown Verified 03/13/19 23:43 RUSSEL Inhibitors Allergy Unknown SEVERE Verified 03/13/19 23:43 DROP IN SODUIM,CONFUSION, PERSONALITY CHANGE Home Medications Home Medications Medication Instructions Recorded Confirmed Type Symbicort 2 puff INHALATION BID 07/12/18 03/13/19 History amlodipine [Norvasc] 10 mg PO QAM 07/12/18 03/13/19 History atenolol [Tenormin] 50 mg PO QAM 07/12/18 03/13/19 History atorvastatin [Lipitor] 40 mg PO HS 07/12/18 03/13/19 History levothyroxine 112 mcg PO DAILYBB 07/12/18 03/13/19 History acetaminophen 500 mg PO BID 11/23/18 03/13/19 History acetaminophen 500 mg PO DAILY PRN 11/23/18 03/13/19 History docusate sodium 100 mg PO DAILY PRN 11/23/18 03/13/19 History levalbuterol HCl 0.63 mg NEB BID #90 ml 11/28/18 03/13/19 Rx pantoprazole 40 mg PO BID #60 tab 11/28/18 03/13/19 Rx ferrous sulfate 325 mg PO BID 12/25/18 03/13/19 History levalbuterol HCl 0.63 mg INHALATION Q6H PRN 12/25/18 03/13/19 History lorazepam 0.5 mg PO Q6H PRN 12/25/18 03/13/19 History miconazole nitrate [Natalya 1 applic TOPICAL TID PRN 12/25/18 03/13/19 History Antifungal] sertraline 25 mg PO QAM 12/25/18 03/13/19 History Lantus Solostar U-100 Insulin 22 unit SUBCUT BID 03/10/19 03/14/19 History dextran 70-hypromellose (PF) 2 drp OPHTHALMIC (EYE) BID 03/10/19 03/13/19 History [Artificial Tears (PF)] furosemide 20 mg PO QAM 03/10/19 03/13/19 History sulfamethoxazole-trimethoprim 1 tab PO BID 03/10/19 03/13/19 History warfarin 1 mg PO 5XWK 03/10/19 03/13/19 History warfarin 2 mg PO 2XWK 03/10/19 03/13/19 History Saline Nasal Gel 1 applic TOPICAL BID PRN 03/13/19 03/13/19 History menthol-zinc oxide [Calmoseptine] 1 applic TOPICAL DIRECTED PRN 03/13/19 03/13/19 History Patient History Medical History Diastolic CHF (Chronic) History of breast cancer (Chronic) Hypothyroidism (Chronic) Diabetes (Chronic) HLD (hyperlipidemia) (Chronic) HTN (hypertension) (Chronic) Dementia (Chronic) On supplemental oxygen by nasal cannula (Chronic) COPD (chronic obstructive pulmonary disease) (Chronic) Surgical History History of tubal ligation (Chronic) History of tonsillectomy and adenoidectomy (Chronic) History of bilateral mastectomy (Chronic) History of cataract extraction (Chronic) History of laparoscopic cholecystectomy (Chronic) S/P hip replacement (Chronic) Family History Father Coronary heart disease Mother Coronary heart disease Social History Preferred Language: Scottish Communication Ability: Impaired Senior Escrow Officer Required: No Beliefs That Will Affect Care: None marital status: / Current Living Situation: Personal Care Facility Current Living Situation Comment: [facility] Other Information That Helps Us Care for You: No Feels Safe at Home: Yes Safety Concerns: Feels Safe At This Time Smoking Status: Unknown if ever smoked Hx Alcohol Use: No Hx Substance Use: No Review of Systems Constitutional: + weakness Ear, Nose, Mouth, Throat: no dysphagia Respiratory: no cough and no dyspnea Cardiovascular: no chest pain Gastrointestinal: no abdominal pain and no nausea Musculoskeletal: chronic right arm pain 2/2 arthritis Neurologic: + confusion and + memory loss Physical Exam Constitutional: well developed and well nourished; no acute distress ENMT: external ear and nose normal, oropharynx normal Neck: normal visual inspection Respiratory: normal respiratory effort, lungs clear to auscultation Cardiovascular: Rate/Rhythm: regular rate and regular rhythm Gastrointestinal (Abdomen): Inspection/Auscultation: abdomen normal to inspection and normal bowel sounds Percussion/Palpation: abdomen soft; abdomen nontender Musculoskeletal: left leg swelling Neurologic: moves all extremities and awake Psychiatric: Orientation: alert and oriented to person; + not oriented to place and + not oriented to time Insight: + poor insight (r/t dementia) Results & Data Vital Signs (Past 12 Hours) Vital Signs Temp Pulse Resp BP Pulse Ox 03/17/19 13:30 36.3 C L 70 18 141/67 H 99 03/17/19 07:23 36.4 C L 76 20 156/61 H 100 03/17/19 07:10 79 18 92 Time Spent Midlevel 70 minutes with >50% of the time spent at bedside with patient and family discussing condition and GOC.
--- NOTE | 2019-03-17 14:44 | Orthopedic Progress Note ---
Date of Service March 17, 2019 Assessment & Plan (1) Hematoma: 88 yo female stable POD #3 s/p evacuation hematoma left lower leg secondary to hyperanticoagulable state dressing changed today, 4x4s, ABD, webril and new RUSSEL 1. Med management- may resume Coumadin evening of 03/15, will let medicine determine dosing 2. DVT prophylaxis- resume Coumadin this evening 3. Wounds appear to be healing well. If she continues to improve, will consider weightbearing on the LLE tomorrow. 4. D/C planning--will follow up with Dr. Chamberlain's clinic in 2-3 weeks post op for suture removal. Ortho to sign off at this time, please contact with any questions or concerns. Subjective no complaints, pain improving daily. denies N/T Physical Exam Physical Exam: Vital Signs Temp Pulse Resp BP Pulse Ox 03/17/19 13:30 36.3 C L 70 18 141/67 H 99 03/17/19 07:23 36.4 C L 76 20 156/61 H 100 03/17/19 07:10 79 18 92 03/16/19 23:41 36.9 C 72 17 142/55 H 100 03/16/19 19:19 71 20 98 03/16/19 14:56 36.6 C 77 19 129/52 L 98 Intake and Output 03/16/19 03/17/19 03/17/19 22:59 06:59 14:59 Intake Total 150 / 990 60 / 60 Output Total 250 / 761 300 / 761 126 / 126 Balance -100 / 229 -300 / 229 -66 / -66 Intake: Oral 150 / 630 60 / 60 Output: Urine 125 / 125 Urine Amount (Ca theter) 250 / 760 300 / 760 External 250 / 760 300 / 760 # Bowel Movement s Other: # Unmeasured Voi ds 2 Musculoskeletal: left lower extremity: incisions clean and dry, moderate ecchymosis; calf SNT, she is able to wiggle her toes, ankle mobility without pain. Results & Data Vital Signs (Past 12 Hours) Vital Signs Temp Pulse Resp BP Pulse Ox 03/17/19 13:30 36.3 C L 70 18 141/67 H 99 03/17/19 07:23 36.4 C L 76 20 156/61 H 100 03/17/19 07:10 79 18 92
--- NOTE | 2019-03-17 15:25 | Pharmacy Report ---
Pharmacy Glycemic Short Note 2 - Date of Service March 17, 2019 - Glycemic Short BSG Results (Last 24 hours): 03/16/19 03/16/19 03/17/19 17:03 20:54 03:46 Glucose POC Glucose 210 H 192 H 181 H 03/17/19 03/17/19 03/17/19 06:11 08:14 11:56 Glucose 164 H POC Glucose 178 H 264 H OUTPATIENT ANTIDIABETIC REGIMEN: * Lantus 22 units SQ BID ASSESSMENT: 03/17 * Patient received 35 units of insulin yesterday, 19 of bolus and 16 of basal * Post op day 3 from hematoma evacution, restarting warfarin today after discussion with son risk vs. benefit, INR 0.9 * Fasting this AM 164 on lab, 178 POC. Will slightly increase lantus dose this morning * Lunch BSG elevated again, carb ratio had been loosened 03/15, will slightly tighten back to 13 03/16 * 88yo F with brittle diabetes. She had BSGs in the 40s yesterday at dinner. D5 gtt was started. BSGs this afternoon are now in the upper 300s. D/w attending, ABRAHAM to d/c d5 gtt at this time. Diet continues. Lantus was decreased this AM to avoid any further hypoglycemia. PLAN FOR INPATIENT GLYCEMIC CONTROL: * Basal insulin * Lantus 18 units x1 this AM * Bolus insulin * NovoLog per scale ACHS or Q6hrs while NPO * Goal Range: Low 110 mg/dL - High 140 mg/dL * Correction Factor: 35 mg/dL/unit * Nutritional / Prandial insulin per carb ratio of 1 unit per 13 grams CHO consumed
[2019-03-17] MEDS ORDERED: WARFARIN SOD 2 MG TAB PO SCH (16:00)
--- NOTE | 2019-03-17 19:08 | Hospitalist Progress Note ---
Date of Service March 17, 2019 Assessment & Plan (1) Hematoma: A huge hematoma left calf likely secondary to Coumadin administration with supratherapeutic INR Ortho evaluation pending May need evacuation of the hematoma POD #2 status post evacuation of left calf hematoma Appreciate Ortho input and recommendation Drainage has been discontinued Leg wounds are healing nicely as per Ortho We will get PT and OT evaluation Has been doing much better Ortho signed off and will see her as an outpatient in 2 to 3 weeks -Wound management and as per wound (2) Acute blood loss anemia: Hemoglobin dropped to below 7 likely secondary to ongoing bleeding INR has been reversed to decrease bleeding Will get 2 units of blood transfusion We will monitor H&H-8.6 on 03/15 and on 03/16 Hemoglobin remains stable (3) Diabetes: Has been on insulin Recently noted to have hypoglycemia on 2 separate occasions required emergency room visit Pharmacy consult Likely to need decreasing the basal insulin (4) Hypoglycemia: As above (5) Paroxysmal A-fib: Rate is controlled and in sinus rhythm Continue current medication Discussed with the son the risk of anticoagulation at this point Will likely to discontinue Coumadin on discharge Discussed with the son who wants Coumadin to be continued for now Coumadin restarted (6) Pulmonary embolism: History of tiny pulmonary embolism without evidence of DVT Has been on Coumadin Risk of bleeding seems to be high Vascular surgery consulted for possible IVC filter Discussed with the son-we will decide on Coumadin therapy Discussed with son again today-will restart Coumadin (7) Dementia: No acute delirium DVT prophylaxis SCDs CODE STATUS DNR/DNI Disposition Awated PT OT evaluation Discussed with the son in detail for further care He wanted to have her mom evaluated by palliative care and possible hospice care down the line Palliative care consulted Subjective 03/14 The patient was seen and examined in medical telemetry unit in presence of the son She complains to have some left leg pain, denies any other symptoms She does not have any shortness of breath and/or chest pain 03/15 The patient was seen and examined in medical He is a status post left calf incision and drainage of the hematoma Has been feeling a lot better Denies any other symptoms 03/16 Patient was seen and examined in presence of the son She has been feeling a lot better following hematoma evacuation Generally weak but denies any other significant symptoms 03/17 The patient was seen and examined in medical floor She remains generally very weak and lethargic Complains of some pain in the left leg No other symptoms of chest pain, shortness of breath or chest pain Review of Systems Review of Systems: All systems reviewed and are unremarkable except as noted below Constitutional: + fatigue and + weakness Gastrointestinal: + problem reported (Epigastric discomfort) Musculoskeletal: + back pain and + problem reported (Left leg pain) Neurologic: + generalized weakness Physical Exam Physical Exam: Sitting on a chair without any obvious distress Constitutional: + ill appearing; no acute distress Eyes: PERRL, conjunctivae normal, anicteric sclerae ENMT: external ear and nose normal, oropharynx normal Neck: trachea midline, no thyromegaly Respiratory: normal respiratory effort; no respiratory distress Auscultation: + diminished lung sounds Cardiovascular: Rate/Rhythm: regular rate and regular rhythm Extremities: + edema (Bilaterally more on the left than the right) Gastrointestinal (Abdomen): Inspection/Auscultation: abdomen normal to inspection Percussion/Palpation: + abdomen tender (Mildly tender in the epigastrium) Musculoskeletal: Extremities: + limited ROM of extremities (Left lower extremity movement is limited with pain due to a huge hematoma involving the left calf) Left leg is still bandaged but swelling has gone down Neurologic: moves all extremities; no focal motor deficits Generally very weak and lethargy Lymphatic: no cervical or axillary lymphadenopathy Results & Data Vital Signs (Past 12 Hours) Vital Signs Temp Pulse Resp BP BP Pulse Ox 03/17/19 19:00 74 18 99 03/17/19 15:32 36.6 C 68 16 134/55 L 100 03/17/19 13:30 36.3 C L 70 18 141/67 H 99 03/17/19 07:23 36.4 C L 76 20 156/61 H 100 03/17/19 07:10 79 18 92 Laboratory Results Short CBC 03/17/19 Range/Units 06:11 WBC 10.36 (4.8-10.8) K/uL Hgb 8.6 L (12.0-16.0) g/dL Hct 27.9 L (37-47) % Plt Count 257 (130-400) K/uL BMP 03/17/19 06:11 Sodium 141 Potassium 4.0 Chloride 100 Carbon Dioxide 38 H BUN 20 H Creatinine 0.93 Glucose 164 H Calcium 8.2 L Medications Administered Current Inpatient Medications Acetaminophen (Tylenol) 500 mg PO BID [facility] Stop: 04/13/19 08:59 Last Admin: 03/17/19 09:28 Dose: 500 mg Documented by: Acetaminophen (Tylenol) 650 mg PO Q4H PRN PRN Reason: Pain or Fever Stop: 04/13/19 03:45 Last Admin: 03/17/19 13:20 Dose: 650 mg Documented by: Amlodipine Besylate (Norvasc) 10 mg PO QAM [facility] Stop: 04/13/19 08:59 Last Admin: 03/17/19 09:20 Dose: 10 mg Documented by: Artificial Tears (Artificial Tears) 2 drops OP BID [facility] Stop: 04/13/19 08:59 Last Admin: 03/17/19 09:18 Dose: 2 drops Documented by: Atenolol (Tenormin) 50 mg PO QAM [facility] Stop: 04/13/19 08:59 Last Admin: 03/17/19 09:23 Dose: 50 mg Documented by: Atorvastatin Calcium (Lipitor) 40 mg PO HS [facility] Stop: 04/13/19 20:59 Last Admin: 03/16/19 20:23 Dose: 40 mg Documented by: Bisacodyl (Dulcolax) 10 mg [place] DAILY PRN PRN Reason: Constipation Stop: 04/13/19 20:18 Budesonide/Formoterol Fumarate (Symbicort 160mcg/4.5mcg) 2 puffs INH BID [facility] Stop: 04/13/19 08:59 Last Admin: 03/17/19 09:20 Dose: 2 puffs Documented by: Calamine/Phenol (Calmoseptine) 1 appln EXT PRN PRN PRN Reason: .IRRITATION Stop: 04/13/19 03:45 Dextrose (Dextrose 50%) 25 - 50 ml IV UD PRN; Protocol PRN Reason: Hypoglycemia Protocol Stop: 04/13/19 20:44 Docusate Sodium (Colace) 100 mg PO DAILY PRN PRN Reason: Constipation Stop: 04/13/19 03:45 Docusate Sodium (Colace) 100 mg PO BID [facility] Stop: 04/13/19 20:59 Last Admin: 03/17/19 09:18 Dose: Not Given Documented by: Ferrous Sulfate (Feosol) 325 mg PO BID [facility] Stop: 04/13/19 08:59 Last Admin: 03/17/19 09:19 Dose: 325 mg Documented by: Furosemide (Lasix) 20 mg PO QAM [facility] Stop: 04/13/19 08:59 Last Admin: 03/17/19 09:19 Dose: 20 mg Documented by: Glucagon (Glucagen) 1 mg IM UD PRN; Protocol PRN Reason: Hypoglycemia Protocol Stop: 04/13/19 20:44 Glucose (Glucose 40%) 15 - 30 gm PO UD PRN; Protocol PRN Reason: Hypoglycemia Protocol Stop: 04/13/19 20:44 Last Admin: 03/15/19 20:43 Dose: 15 gm Documented by: Glucose (Dex4 Glucose) 4 - 8 tabs PO UD PRN; Protocol PRN Reason: Hypoglycemia Protocol Stop: 04/13/19 20:44 Hydromorphone HCl (Dilaudid) 0.5 mg IV Q4H PRN PRN Reason: Pain Stop: 03/28/19 20:18 Sodium Chloride (Nss) 250 mls @ 15 mls/hr IV .[id number] PRN PRN Reason: For Transfusion Stop: 04/13/19 13:13 Insulin Aspart (Novolog Flexpen) 0 units SC ACHS [facility] Stop: 04/13/19 07:29 Last Admin: 03/17/19 18:59 Dose: Not Given Documented by: Insulin Glargine (Lantus Solostar Pen) 18 units SC DAILY [facility]; Protocol Stop: 04/15/19 08:59 Last Admin: 03/17/19 09:18 Dose: 18 units Documented by: Levalbuterol HCl (Xopenex 0.63 Mg/3 Ml Neb) 0.63 mg NEB BIDR [facility] Stop: 04/13/19 06:59 Last Admin: 03/17/19 18:55 Dose: 0.63 mg Documented by: Levalbuterol HCl (Xopenex 0.63 Mg/3 Ml Neb) 0.63 mg INH Q6H PRN PRN Reason: sob/wheezing Stop: 04/13/19 03:45 Levothyroxine Sodium (Synthroid) 112 mcg PO DAILYBB [facility] Stop: 04/13/19 06:29 Last Admin: 03/17/19 05:29 Dose: 112 mcg Documented by: Lorazepam (Ativan) 0.5 mg PO Q6H PRN PRN Reason: Anxiety Stop: 04/13/19 03:45 Last Admin: 03/16/19 05:33 Dose: 0.5 mg Documented by: Magnesium Hydroxide (Milk Of Magnesia) 30 ml PO Q6H PRN PRN Reason: Constipation Stop: 04/13/19 20:18 Metoclopramide HCl (Reglan) 10 mg IV Q6H PRN PRN Reason: Nausea And Vomiting Stop: 04/13/19 20:18 Miconazole Nitrate (Monistat Derm) 1 appln TOP TID PRN PRN Reason: skin breakdown Stop: 04/13/19 03:45 Miscellaneous (Carbohydrates For Hypoglycemia) 15 - 30 gm PO UD PRN PRN Reason: Hypoglycemia Treatment Stop: 04/13/19 20:44 Last Admin: 03/15/19 18:09 Dose: 15 gm Documented by: Miscellaneous Information (Consult Glycemic Management Pharmacy) 1 ea N/A UD PRN PRN Reason: Consult Stop: 04/13/19 03:58 Multivitamins (Multivitamin Tab) 1 tab PO QAM [facility] Stop: 04/14/19 08:59 Last Admin: 03/17/19 09:19 Dose: 1 tab Documented by: Naloxone HCl (Narcan) 0.1 mg IV Q5M PRN PRN Reason: Oversedation/Resp Depression Stop: 04/13/19 20:18 Nitroglycerin (Nitrostat) 0.4 mg SL UD PRN PRN Reason: Chest Pain Stop: 04/13/19 03:45 Ondansetron HCl (Zofran) 4 mg IV Q6H PRN PRN Reason: Nausea Stop: 04/13/19 03:45 Pantoprazole Sodium (Protonix) 40 mg PO BID [facility] Stop: 04/13/19 08:59 Last Admin: 03/17/19 09:20 Dose: 40 mg Documented by: Polyethylene Glycol (Miralax Powder Packet) 17 gm PO DAILY PRN PRN Reason: Constipation Stop: 04/13/19 03:45 Sennosides (Senokot) 17.2 mg PO HS [facility] Stop: 04/13/19 20:59 Last Admin: 03/16/19 20:24 Dose: 17.2 mg Documented by: Sertraline HCl (Zoloft) 25 mg PO QAM [facility] Stop: 04/13/19 08:59 Last Admin: 03/17/19 09:24 Dose: 25 mg Documented by: Sodium Chloride ([place] Saline Nasal) 1 appln NA BID PRN PRN Reason: dryness Warfarin Sodium (Coumadin) 2 mg PO DAILY@1600 [facility] Stop: 04/16/19 15:59 Last Admin: 03/17/19 17:14 Dose: 2 mg Documented by: (1) Pulmonary embolism Acute cor pulmonale presence: without acute cor pulmonale Chronicity: acute Pulmonary embolism type: unspecified Qualified Code(s): I26.99 - Other pulmonary embolism without acute cor pulmonale
[2019-03-17] MEDS: SENNA 8.6 MG TAB PO SCH (20:43)
[2019-03-17] MEDS: ATORVASTATIN 40 MG TAB PO SCH (20:45)
[2019-03-18] MEDS: LORazepam 0.5 MG TAB PO PRN (03:08)
[2019-03-18] MEDS: LEVOTHYROXINE SODIUM 112 MCG TABLET PO SCH (05:35)
[2019-03-18 07:04] LABS: Prothrombin Time 9.8 Seconds (9.0-12.0)
[2019-03-18] MEDS: LEVALBUTEROL HCL 0.63 MG/3 ML NEB NEB SCH (07:05)
[2019-03-18] MEDS: INSULIN ASPART 100 UNITS/ML 3 ML PEN SC SCH ×2 (09:26→13:22)
[2019-03-18] MEDS: INSULIN GLARGINE SOLOSTAR 100 UNITS/ML 3 ML PEN SC SCH (09:29)
[2019-03-18] MEDS: ARTIFICIAL TEARS OP SCH (09:52)
[2019-03-18] MEDS: DOCUSATE SODIUM 100 MG CAP PO SCH (09:56)
[2019-03-18] MEDS: BUDESONIDE/FORMOTEROL FUMARATE 160/4.5 60 PUFFS/INHALER INH SCH (10:07)
[2019-03-18] MEDS: SERTRALINE HCL 50 MG TABLET PO SCH (10:10)
[2019-03-18] MEDS: ACETAMINOPHEN 500 MG TAB PO SCH (10:11)
[2019-03-18] MEDS: AMLODIPINE BESYLATE 5 MG TAB PO SCH (10:12)
[2019-03-18] MEDS: ATENOLOL 50 MG TABLET PO SCH (10:12)
[2019-03-18] MEDS: MULTIVITAMIN TAB PO SCH (10:13)
[2019-03-18] MEDS: FUROSEMIDE 20 MG TAB PO SCH (10:14)
[2019-03-18] MEDS: FERROUS SULFATE 325 MG TAB PO SCH (10:14)
[2019-03-18] MEDS: PANTOprazole 40 MG TAB PO SCH (10:15)
--- NOTE | 2019-03-18 12:46 | Pharmacy Report ---
Pharmacy Glycemic Short Note 2 - Date of Service March 18, 2019 - Glycemic Short BSG Results (Last 24 hours): 03/17/19 03/17/19 03/18/19 16:46 20:35 08:08 POC Glucose 138 H 155 H 121 H 03/18/19 08:37 POC Glucose 125 H OUTPATIENT ANTIDIABETIC REGIMEN: * Lantus 22 units SQ BID ASSESSMENT: 03/18 * Ms. Longoria received 18 units of basal and 10 units of bolus insulin yesterday * BSGs have improved with tightened carb ratio. Pre-lunch BSG elevated again today but is improved from previous days. In addition, AM Novolog not administered until ~0930 so this value is not a true reflection of AM Novolog. * Will wait to make further changes since postprandial BSGs have improved overall 03/17 * Patient received 35 units of insulin yesterday, 19 of bolus and 16 of basal * Post op day 3 from hematoma evacution, restarting warfarin today after discussion with son risk vs. benefit, INR 0.9 * Fasting this AM 164 on lab, 178 POC. Will slightly increase lantus dose this morning * Lunch BSG elevated again, carb ratio had been loosened 03/15, will slightly tighten back to 13 03/16 * 88yo F with brittle diabetes. She had BSGs in the 40s yesterday at dinner. D5 gtt was started. BSGs this afternoon are now in the upper 300s. D/w attending, ABRAHAM to d/c d5 gtt at this time. Diet continues. Lantus was decreased this AM to avoid any further hypoglycemia. PLAN FOR INPATIENT GLYCEMIC CONTROL: * Basal insulin - no change * Lantus 18 units qAM * Bolus insulin * NovoLog per scale ACHS or Q6hrs while NPO * Goal Range: Low 110 mg/dL - High 140 mg/dL * Correction Factor: 35 mg/dL/unit * Nutritional / Prandial insulin per carb ratio of 1 unit per 13 grams CHO consumed Discharge Recommendations: * A1c = 7.2 % on 03/14/19 * Goal A1c = < 8 % based on age and comorbidities Less stringent A1C goals (such as less than 8%) may be appropriate for patients with a history of severe hypoglycemia, limited life expectancy, advanced microvascular or macrovascular complications, extensive comorbid conditions, or long-standing diabetes in whom the goal is difficult to achieve despite diabetes self-management education, appropriate glucose monitoring, and effective doses of multiple glucose-lowering agents including insulin. * Continue Lantus 22 units BID on discharge
--- NOTE | 2019-03-18 13:17 | Hospitalist Progress Note ---
Date of Service March 18, 2019 Assessment & Plan (1) Hematoma: A huge hematoma left calf likely secondary to Coumadin administration with supratherapeutic INR Ortho evaluation pending May need evacuation of the hematoma POD #4 status post evacuation of left calf hematoma Appreciate Ortho input and recommendation Leg wounds are healing nicely as per Ortho Has been doing much better Ortho signed off and will see her as an outpatient in 2 to 3 weeks Wound management and as per wound care Palliative care was consulted and pt will discharge on hospice (2) Acute blood loss anemia: Hemoglobin dropped to below 7 likely secondary to ongoing bleeding INR has been reversed to decrease bleeding Received 2 units PRBC on 03/14 Hemoglobin remains stable (3) Diabetes: Has been on insulin Recently noted to have hypoglycemia on 2 separate occasions required emergency room visit Pharmacy on for glycemic management Likely to need decreasing the basal insulin (4) Hypoglycemia: continue monitor BS (5) Paroxysmal A-fib: Rate is controlled and in sinus rhythm Dr. Preston discussed with the son about the risk of anticoagulation at this point, son would like to continue with the coumadin I also discussed with the son today about coumadin since pt will be discharged on hospice, Son wants to continue the coumadin Follow up with the coag clinic Monitor PT/INR (6) Pulmonary embolism: History of tiny pulmonary embolism without evidence of DVT Has been on Coumadin Risk of bleeding seems to be high Vascular surgery consulted for possible IVC filter as per vascular there is no indication at this time to proceed with any vascular intervention such as embolization of the bleeding sites to the left lower extremity or IVC filter placement Multiple discussion with the son about the coumadin and son wants to continue the coumadin Continue coumadin (7) Dementia: No acute delirium DVT prophylaxis On coumadin SCDs CODE STATUS DNR/DNI Disposition Discharge today on hospice Subjective Pt was seen and examined Sitting in chair with no distress with son at bedside Pt said that she feels fine Denies any chest pain, palpitation, dizziness and SOB Physical Exam Physical Exam: General- No acute distress Head- atraumatic Eyes- PERRL, EOMI, ENT- oropharynx clear Neck- supple, no JVD Lungs- No wheezing, No crackle Heart- regular rhythm; no murmur Abdomen- normal bowel sounds, soft, nontender Extremities- +edema, Left LE wrapped with bandage Neuro- alert, oriented, PERRL, EOMI; no facial palsy; no dysarthria Skin- warm & dry Results & Data Vital Signs (Past 12 Hours) Vital Signs Temp Pulse Pulse Resp BP Pulse Ox 03/18/19 07:34 36.6 C 70 19 143/49 H 96 03/18/19 07:06 70 18 99 (1) Pulmonary embolism Acute cor pulmonale presence: without acute cor pulmonale Chronicity: acute Pulmonary embolism type: unspecified Qualified Code(s): I26.99 - Other pulmonary embolism without acute cor pulmonale
--- NOTE | 2019-03-20 08:37 | Discharge Summary ---
Date of Service March 18, 2019 Admission HPI Per Admitting Provider CHIEF COMPLAINT: Left leg calf pain and hematoma. HISTORY OF PRESENT ILLNESS: This is an 88-year-old female with past medical history significant for severe COPD, chronic respiratory failure on 3.5 liters oxygen, diabetes, hypertension, hyperlipidemia, diastolic CHF, chronic kidney disease stage III, history of paroxysmal atrial fibrillation, hypothyroidism, history of dementia, oriented to name only, history of breast cancer status post mastectomy and radiation. Patient was here in last week of December and at that time she was found to have bilateral lower lung pulmonary embolism and she was discharged on Coumadin. She came to the ER yesterday morning and also on 03/10/2019 with confusion at alf and found to have hypoglycemia and she was discharged and since yesterday evening 4:00 p.m., she noticed swelling in the leg and severe pain and she was brought in here and she has a big hematoma in the left calf. Distal pulses were okay as per ER and INR was 5 and she received a dose of IV vitamin K. The patient lives at the [facility]. She ambulates with a walker. She is a DNR. I spoke with her son on the phone and could not get any history from the patient because of dementia. Patient is oriented to name only and pleasantly confused which seems to be her baseline. As per son, she was doing okay until this happened. Currently, patient is hemodynamically stable, afebrile. Admission Exam Per Admitting Provider GENERAL: The patient is alert and awake, oriented to name only, not in acute distress. VITAL SIGNS: Temperature 36.7, pulse 72, respiratory rate 20, blood pressure 123/49, oxygen 98% on 4 liters. HEENT: No pallor, no icterus. Pupils equal, round, reactive to light. NECK: No JVD, no neck masses, no carotid bruits. CARDIOVASCULAR: S1, S2 heard, regular rate and rhythm, no murmur, no gallop. RESPIRATORY SYSTEM: Normal AP diameter. No accessory muscle use. No wheezing, no crackles. ABDOMEN: Soft, bowel sounds present, nontender. No distention. CENTRAL NERVOUS SYSTEM: Alert and oriented to name only, obeys simple commands. Moves extremities. EXTREMITIES: Right calf region is swollen, erythematous, and somewhat warm. Principal Diagnosis Hematoma Acute blood loss anemia Paroxysmal A-fib Pulmonary embolism Diabetes type 2 Discharge Exam General- No acute distress Head- atraumatic Eyes- PERRL, EOMI, ENT- oropharynx clear Neck- supple, no JVD Lungs- No wheezing, No crackle Heart- regular rhythm; no murmur Abdomen- normal bowel sounds, soft, nontender Extremities- +edema, Left LE wrapped with bandage Neuro- alert, oriented, PERRL, EOMI; no facial palsy; no dysarthria Skin- warm & dry Discharge Data Allergies Allergy/AdvReac Type Severity Reaction Status Date / Time latex Allergy Intermediate Unknown Verified 03/13/19 23:43 codeine Allergy Mild Unknown Verified 03/13/19 23:43 RUSSEL Inhibitors Allergy Unknown SEVERE Verified 03/13/19 23:43 DROP IN SODUIM,CONFUSION, PERSONALITY CHANGE Consultations 03/14/19 01:27 ED Decision to Admit Stat 03/14/19 03:46 Consult Case Management - Discharge Planning Routine Consult Vascular Surgery Routine 03/14/19 08:00 Consult Orthopedic Surgery Routine 03/14/19 20:19 Consult Case Management - Discharge Planning Routine 03/17/19 12:59 Consult Palliative Care Routine Procedures Performed Operation Date: 03/14/19 14:00 Actual Procedures p Incision and Drainage Hematoma Left Lower Leg(Left) - Yaakov Chamberlain DO Ordered Studies 03/13/19 20:52 CT tib/fib LT w con Stat LEFT TIBIA AND FIBULA 2 VIEWS CLINICAL HISTORY: Hematoma. FINDINGS: AP and crosstable lateral views of the left tibia and fibula are obtained. No prior studies are available for comparison at the time of dictation. The skeletal structures are osteopenic. There is no radiographic evidence of left tibial or fibular fracture. The knee and ankle joints are grossly maintained. Diffuse soft tissue edema is present throughout the left lower extremity. A large medial soft tissue density likely corresponds to the clinically suspected hematoma. IMPRESSION: 1. There is no radiographic evidence of left tibial or fibular fracture. 2. Lower extremity soft tissue edema. 3. A large medial soft tissue density likely corresponds to the clinically suspected hematoma. Electronically signed by: Darian Mallory M.D. 03/13/2019 9:50 PM Dictated: 03/13/192148 Transcribed: 03/13/192148 CT SCAN OF THE LEFT TIBIA AND FIBULA WITH IV CONTRAST CLINICAL HISTORY: Hematoma. COMPARISON STUDY: Radiographs of the left tibia and fibula dated 03/13/2019. TECHNIQUE: Following the IV administration of 94 cc of Optiray 320, CT scan of the left tibia and fibula is performed from the knee joint to the ankle. Images are reviewed in the axial, sagittal, and coronal planes. IV contrast was administered without complication. A dose lowering technique was utilized adhering to the principles of ALARA. FINDINGS: The skeletal structures are osteopenic. There is no evidence of left tibial or fibular fracture. No bony erosion or periostitis is identified. The knee and ankle joints appear maintained noting degenerative change. There is a large and multiloculated hyperdense fluid collection identified throughout the medial calf. This measures approximately 20.5 x 10 x 6 cm in aggregate dimension and contains several hematocrit levels. There are several small foci of active extravasation identified within this collection. Diffuse superficial and deep soft tissue edema is present throughout the remainder of the visualized left lower extremity. There is generalized atrophy of the regional musculature. No intramuscular hemorrhage is seen. The Achilles tendon is intact as visualized. The calf arteries are patent noting atherosclerotic calcification and irregularity. Soft tissue edema is also present within the partially imaged right calf. IMPRESSION: 1. There is a large hematoma identified within the medial right calf as detailed above. This shows several foci of active extravasation. 2. No osseous abnormality is seen involving the left tibia or fibula. 3. Diffuse soft tissue edema is present throughout the ankle. Electronically signed by: Darian Mallory M.D. 03/13/2019 11:23 PM Dictated: 03/13/19 2318 Transcribed: 03/13/19 2318 Hospital Course (1) Hematoma: A huge hematoma left calf likely secondary to Coumadin administration with supratherapeutic INR Ortho evaluation pending May need evacuation of the hematoma POD #4 status post evacuation of left calf hematoma Appreciate Ortho input and recommendation Leg wounds are healing nicely as per Ortho Has been doing much better Ortho signed off and will see her as an outpatient in 2 to 3 weeks Wound management and as per wound care Palliative care was consulted and pt will discharge on hospice (2) Acute blood loss anemia: Hemoglobin dropped to below 7 likely secondary to ongoing bleeding INR has been reversed to decrease bleeding Received 2 units PRBC on 03/14 Hemoglobin remains stable (3) Diabetes: Has been on insulin Recently noted to have hypoglycemia on 2 separate occasions required emergency room visit Pharmacy on for glycemic management Likely to need decreasing the basal insulin (4) Hypoglycemia: continue monitor BS (5) Paroxysmal A-fib: Rate is controlled and in sinus rhythm Dr. Preston discussed with the son about the risk of anticoagulation at this point, son would like to continue with the coumadin I also discussed with the son today about coumadin since pt will be discharged on hospice, Son wants to continue the coumadin Follow up with the coag clinic Monitor PT/INR (6) Pulmonary embolism: History of tiny pulmonary embolism without evidence of DVT Has been on Coumadin Risk of bleeding seems to be high Vascular surgery consulted for possible IVC filter as per vascular there is no indication at this time to proceed with any vascular intervention such as embolization of the bleeding sites to the left lower extremity or IVC filter placement Multiple discussion with the son about the coumadin and son wants to continue the coumadin Continue coumadin (7) Dementia: No acute delirium DVT prophylaxis On coumadin SCDs CODE STATUS DNR/DNI Disposition Discharge today on hospice Total Time Total Time Spent Total Time Spent (In Minutes): 35 minutes Total Time Includes: Examination of the Patient, Discharge Planning, Medication Reconciliation, Communication With Other Providers and Other Discharge Plan Discharge Items Patient Disposition: Personal Group Home Reason For Visit: LEFT LEG PAIN Discharge Diagnosis: Hematoma Acute blood loss anemia Paroxysmal A-fib Pulmonary embolism Activity: Resume your previous activity Activity Comment: as tolerated Non-emergency contact: Primary Care Provider Call non-emergency contact if: you have any medication questions Follow-up/Referrals: Yaakov Chamberlain DO [Surgeon] - (Call to schedule a follow up for approximately 2-3 weeks from surgery.) [facility], [facility] [Primary Care Provider] - Diet: Carb Consistent or DM2 Addtl Attending Provider Instructions: Discharge on Hospice Follow up with your primary care provider Dr. Chamberlain on 03/23 @ 11:05 AM Follow with orthopedic Dr. Chamberlain in 2 to 3 week ( please call to schedule for the follow appointment ) Follow up with the coumadin clinic Continue coumadin ( as per son resquest) Monitor PT/OT Continue daily wound care Fall precaution Continue oxygen supplment Pending Studies at Discharge: No Stand-Alone Forms: My [facility] Skilled Items Lines: None Urinary Catheter: No Medications and DC Order Prescriptions: Continued acetaminophen 500 mg Tablet 500 mg PO DAILY PRN (Reason: Fever Or Pain) RF: 0 acetaminophen 500 mg Tablet 500 mg PO BID RF: 0 docusate sodium 100 mg Capsule 100 mg PO DAILY PRN (Reason: Constipation) RF: 0 levalbuterol HCl 0.63 mg/3 mL Solution For Nebulization 0.63 mg NEB BID Qty: 90 RF: 0 pantoprazole 40 mg Tablet,Delayed Release (Dr/Ec) 40 mg PO BID Qty: 60 RF: 1 levalbuterol HCl 0.63 mg/3 mL Solution For Nebulization 0.63 mg INHALATION Q6H PRN (Reason: sob/wheezing) RF: 0 miconazole nitrate [Natalya Antifungal] 2 % Cream 1 applic TOPICAL TID PRN (Reason: skin breakdown) RF: 0 lorazepam 0.5 mg tablet 0.5 mg PO Q6H PRN (Reason: Anxiety) RF: 0 sertraline 25 mg tablet 25 mg PO QAM RF: 0 ferrous sulfate 325 mg (65 mg iron) Tablet,Delayed Release (Dr/Ec) 325 mg PO BID RF: 0 warfarin 2 mg tablet 2 mg PO 2XWK RF: 0 warfarin 1 mg tablet 1 mg PO 5XWK RF: 0 Artificial Tears (PF) 0.1-0.3 % Dropperette 2 drp OPHTHALMIC (EYE) BID RF: 0 furosemide 20 mg tablet 20 mg PO QAM RF: 0 Lantus Solostar U-100 Insulin 100 unit/mL (3 mL) insulin pen 22 unit SUBCUT BID RF: 0 Calmoseptine 0.44-20.6 % Ointment 1 applic TOPICAL DIRECTED PRN (Reason: Skin Irritation) RF: 0 atorvastatin [Lipitor] 40 mg Tablet 40 mg PO HS RF: 0 amlodipine [Norvasc] 10 mg Tablet 10 mg PO QAM RF: 0 atenolol [Tenormin] 50 mg Tablet 50 mg PO QAM RF: 0 levothyroxine 112 mcg Tablet 112 mcg PO DAILYBB RF: 0 Symbicort 160-4.5 mcg/actuation Hfa Aerosol Inhaler 2 puff INHALATION BID RF: 0 Saline Nasal Gel 1 applic topical BID PRN (Reason: dryness) RF: 0 Discontinued sulfamethoxazole-trimethoprim 800-160 mg tablet 1 tab PO BID RF: 0 Discharge Orders: Discharge Order (Routine); Ordered 03/18/19 Ordered By: Brian Ríos/Other Patient Handouts: Anemia Admission Data Admit Date/Time: 03/14/19 02:44 Attending Provider: Brian Weller Admit Provider: Ian Duckworth Primary Care Provider: Willian Rod,[facility], [facility] Other Providers: Yaakov Chamberlain ; Ian Duckworth ; Mychal Jenkins ; Santa Day ; Miguel Angel Preston Other Interventions: Discharge Summary Assessment (RN) Last Done: 03/18/19 15:11 DC Date/Time DO NOT enter until pt leaves facility: 03/18/19 16:50
== END 2019-03-18 16:50 | disposition home or self-care (01) | DRG 982 ==
LOC: ED 20:31 → SUATTDRO 03-14 02:44 → 2N 03-14 02:44 → 3W 03-15 10:41